=== PATIENT | male | born 1935 | race Caucasian/White ===

== ENCOUNTER → 2016-09-09 | Outpatient (CLI) | payer OTHER ==
[~2016-09-09] VITALS: Ht 185.4 cm; Wt 75.1 kg
[~2016-09-09] MED LIST: ALPHAGAN P10 ML OP; APAP650 PO; CALCITRATE200 MG PO; FLOMAX0.4 MG PO; GABAPENTIN 100100 MG PO; HYDROCODON-ACE1 EAC5 PO; HYDROCODONE-AP1 EAC6 PO; LANTUS SUBQ; LEVEMIR FL100 UNIT/2 SQ; LIPITOR10 MG PO; LOW DOSE ASPIRI81 M1 PO; METHADONE HCL 110 M1 PO; METHADONE HCL5 MG PO; METHOTREXATE 22.5 M1 PO; MULTIVITAMINS PO; NEURONTIN 300300 M1 PO; NEURONTIN 400M400 M2 PO; NEURONTIN600 MG PO; NOVOLOG100 UNIT/1 SQ; OMEGA-31000 MG PO; OXYCODONE-APAP1 EAC6 PO; PLAVIX 75 MG TA75 M1 PO; PREDNISONE 1 MG1 M1 PO; PROZAC 10 MG CA10 M1 PO; PROZAC 10 MG CA10 MG; PROZAC 10 MG CA10 MG PO; SIMVASTATIN20 MG PO; TRAMADOL 50 MG50 MG PO; TRAVATAN Z5 ML OP; TRUSOPT5 ML OP; VITAMIN B-12500 MCG PO; VITAMIN D-32000 UNIT PO; XANAX 0.5 MG0.5 M1 PO
--- NOTE | ~2016-09-09 | HPC ---
[facility] [place] [address] PAIN MANAGEMENT CONSULTATION Name: REMI RAGSDALE Room #: REG GAYATRI Lauren#: [id number] Admission: 09/09/16 Attend Phys: Benson Larry MD Discharge: Date of : 34 Report #: [id number] THIS REPORT FOR: //name// CC: Farhad Larry DATE OF REGISTRATION: 09/09/2016 Followup visit for chronic pain, lumbar radiculopathy, post-laminectomy syndrome, left L5 distribution, bilateral chronic peripheral neuropathy, osteoarthritis. The patient returns to the pain clinic today for followup. He has a number of pain generators as described above. Today is difficult with the changes in weather; he has pain in his joints with left hip bothersome as well as right where he has had previous replacement. He has lumbar spondylytic low back pain, pain across his scar and he has radicular pain radiating down into the left hip and leg. In addition, he suffers from chronic neuropathy, which has been treated with a combination of methadone and gabapentin with some success. Overall, his pain score today with these multiple aches is 4/10 with the use of medication. He has been taking increasing doses of hydrocodone for breakthrough. MEDICATIONS: Include methadone 10 mg daily in divided dose, hydrocodone 5-10 mg taken for breakthrough pain every 6 hours, more recently with changes in whether, gabapentin 600 mg at bedtime, 300 mg t.i.d., Prozac 10 mg daily, he is also on Plavix, aspirin, prednisone, methotrexate, omega 3, Alphagan, Travatan, Trusopt and NovoLog insulin sliding scale. He discontinued his Plavix since 7 days, anticipation of an epidural injection today, which has been helpful, providing up to 75% of pain relief for months at a time. PHYSICAL EXAMINATION: His affect is a little depressed today. His blood pressure is 131/56, his heart rate is 60, moves from sitting to standing position, ambulates with a cane, slow shuffling steps, has pain and tenderness across his low back, straight leg raising discomfort in the left hip. Internal and external rotation is performed without significant discomfort. Bilateral lower extremity numbness from the knees down consistent with neuropathy. He has diffuse pain across his low back and mid back with spondylitic changes noted. IMPRESSION: 1. Chronic intractable pain with lumbar spondylosis and post-laminectomy syndrome and lumbar radiculopathy L5. 2. Peripheral neuropathy. 3. Osteoarthritis, right hip replacement, now complaining of pain in the left hip. [address] [address] PAIN MANAGEMENT CONSULTATION Name: REMI RAGSDALE Room #: REG [facility].#: [id number] Admission: 09/09/16 Attend Phys: Benson Larry MD Discharge: Date of : 34 Report #: [id number] 4. Psoriatic arthritis, prednisone. 5. Management of high risk medication. 6. Anticoagulation therapy. PLAN: 1. I renewed his hydrocodone at 10 mg q.6 hours for breakthrough pain. 2. Methadone 5 mg morning, 2.5 mg afternoon and evening. 3. Epidural steroid injection under fluoroscopic guidance. PROCEDURE: The patient was taken to fluoroscopic suite for treatment, placed prone, skin prepped with ChloraPrep. Skin anesthetized over the L5-S1 interspace below the scar. A 20-gauge Tuohy epidural needle advanced in the left of midline with good loss of resistance. No blood or CSF aspirated. A 1 mL of Omnipaque injected. Good spread of dye observed in the epidural space followed by 3 mL of 0.5% lidocaine mixed with 80 mg triamcinolone. He tolerated the procedure well and was observed for 45 minutes and discharged. Follow up as needed. <ELECTRONICALLY SIGNED> By: Benson Larry MD 10/09/16 1130 1035 1058 Benson Larry MD /nt
[2016-09-09 09:33] VITALS: BP 131/56
== END | disposition home or self-care (01) ==
LOC: PAIN 07-28 10:56
DX: M47.896 Other spondylosis, lumbar region (principal); G89.29 Other chronic pain; M96.1 Postlaminectomy syndrome, not elsewhere classified; G62.9 Polyneuropathy, unspecified; M16.11 Unilateral primary osteoarthritis, right hip; M25.552 Pain in left hip; L40.50 Arthropathic psoriasis, unspecified; Z79.01 Long term (current) use of anticoagulants

== ENCOUNTER → 2016-12-13 | Outpatient (CLI) | payer OTHER ==
[~2016-12-13] VITALS: Ht 185.4 cm; Wt 76.7 kg
--- NOTE | ~2016-12-13 | HPC ---
[facility] [place] [address] PAIN MANAGEMENT CONSULTATION Name: REMI RAGSDALE Room #: REG GAYATRI Lauren#: [id number] Admission: 12/13/16 Attend Phys: Benson Larry MD Discharge: Date of : 34 Report #: [id number] THIS REPORT FOR: //name// CC: Farhad Larry DATE OF SERVICE: 12/13/2016 Followup visit for low back pain with radiculopathy and peripheral neuropathy. The patient is here today for a 15-minute followup. We discussed his medications and his pain. He is becoming progressively more sedentary. I have encouraged him to walk more and have talked to him about getting a Fitbit, so he can monitor and develop a program. His is in agreement with this. Describes pain as constant, every day pain, mid back, radiates bilaterally through the legs into his feet. A component of this is certainly peripheral neuropathy related about diabetes, but he has gotten good results from epidural injections in the past and is here today for an injection. Dr. Rodríguez, his primary care physician manages his all his other medications. He recently had been developing some pitting edema in the lower extremities. This is new. We reviewed some of his medications, gabapentin is often the culprit. He has been on it so long. It would be hard to see if that is causing it. We also talked about dietary changes. I would like him to see Dr. Rodríguez to discuss this as well. He does not have a history of heart failure. MEDICATIONS: Reviewed and reconciled from the electronic medical record. ALLERGIES: NONE. PHYSICAL EXAMINATION: Blood pressure 115/44, heart rate 60. BMI 22.3. Moves from sitting to standing position. He ambulates with antalgic features. He has weakness. It is generalized throughout the lower extremities. Pitting edema is noted. Bilateral straight leg raising pain reproduces radicular like sensations in lower extremity. He has light touch discomfort with mild allodynia throughout the lower extremities and tenderness with this pitting edema. IMPRESSION: 1. Chronic low back pain with radiculopathy, bilateral. This is longstanding and related to severe spinal stenosis. 2. Peripheral neuropathy. 3. Osteoarthritis, status post right hip replacement. 4. Psoriatic arthritis, which he is on chronic management with . 5. Management of high risk medication. [address] [address] PAIN MANAGEMENT CONSULTATION Name: REMI RAGSDALE Room #: REG CLI Tahmina#: [id number] Admission: 12/13/16 Attend Phys: Benson Larry MD Discharge: Date of : 34 Report #: [id number] 6. Chronic use of Plavix. PROCEDURE: Epidural steroid injection under fluoroscopic guidance, L4-L5, renewal of medicines. He was taken to fluoroscopic suite, placed prone. Skin prepped with ChloraPrep. Skin anesthetized at L4-L5. A 20-gauge Tuohy epidural needle advanced in the epidural space with loss of resistance. No blood or CSF aspirated. 1 mL of Omnipaque injected. Good spread of dye observed followed by 3 mL of 0.5% lidocaine mixed with 80 mg of triamcinolone. He tolerated the procedure well and was observed for 45 minutes and discharged. Follow up as needed. By: 1222 27 Benson Larry MD /nt
[2016-12-13 10:17] VITALS: BP 115/44
== END ==
LOC: PAIN 06:50
DX: M54.16 Radiculopathy, lumbar region (principal); M48.06 Spinal stenosis, lumbar region; G62.9 Polyneuropathy, unspecified; M16.11 Unilateral primary osteoarthritis, right hip; Z96.641 Presence of right artificial hip joint; L40.50 Arthropathic psoriasis, unspecified

== ENCOUNTER → 2017-03-10 | Outpatient (CLI) | payer OTHER ==
[~2017-03-10] VITALS: Ht 182.9 cm; Wt 75.8 kg
[2017-03-10 13:45] VITALS: BP 137/55
== END | disposition home or self-care (01) ==
LOC: PAIN 06:52
DX: M54.16 Radiculopathy, lumbar region (principal); M96.1 Postlaminectomy syndrome, not elsewhere classified; M19.90 Unspecified osteoarthritis, unspecified site; G62.9 Polyneuropathy, unspecified; M48.00 Spinal stenosis, site unspecified

== ENCOUNTER → 2017-05-30 | Outpatient (CLI) | payer OTHER ==
[~2017-05-30] VITALS: Ht 182.9 cm; Wt 74.9 kg
[~2017-05-30] MED LIST changes: +METHYLPHENIDATE5 MG PO
--- NOTE | ~2017-05-30 | HPC ---
[facility] [address] [place] [address] PAIN MANAGEMENT CONSULTATION Name: REMI RAGSDALE Room #: REG GAYATRI Lauren#: [id number] Admission: 05/30/17 Attend Phys: Benson Larry MD Discharge: Date of : 34 Report #: [id number] THIS REPORT FOR: //name// CC: Farhad Larry DATE OF SERVICE: 05/30/2017 HISTORY OF PRESENT ILLNESS: The patient returns to pain clinic today for an epidural injection. He has responded nicely to these injections at L5-S1 below the level of his extensive laminectomy. I also provide him with medication under terms of an opioid agreement. This includes methadone 5 mg, which he takes in divided dose, a total of 10 mg per day and hydrocodone 10/325 four tablets a day for breakthrough pain. He does not always take 4. He is on other medications, which were reviewed, so polypharmacy regimen is likely causing some daytime drowsiness. He has gabapentin 600 mg evening and 400 mg 3 times daily during waking hours. He also takes prednisone, methotrexate, aspirin, multivitamins, omega-3, Alphagan, travoprost, ____, insulin, fluoxetine, Plavix which was discontinued in anticipation of an injection 1 week ago. PHYSICAL EXAMINATION: He is pleasant, a little bit sluggish today, but his humorous is good, insight is good and he does not show any significant decline in mental faculties. His blood pressure is 125/47, heart rate 61, respirations 14. BMI is 22.4. He is able to move from sitting to standing position independently, walks without a cane. He has kind of a shuffling gait. He has tenderness across his low back and forward flexion/extension increases that low back pain. Bilateral pain is noted in legs with straight leg raising that extends all the way into the feet with numbness and tingling. This is likely peripheral neuropathy related to his underlying diabetes. IMPRESSION: 1. Low back pain, post-laminectomy syndrome with radiculopathy. 2. Peripheral neuropathy. 3. Psoriatic arthritis. 4. Management of high risk medication. RECOMMENDATIONS: 1. I am going to renew his medications, which he feels a very helpful for his daytime pain, but I am also going to add methylphenidate 5 mg in the morning for his daytime drowsiness and see if that small amount of stimulant will help. 2. Epidural steroid injection under fluoroscopic guidance, L5-S1. PROCEDURE: He was taken to the fluoroscopic suite for the injection, placed prone, skin prepped with ChloraPrep over the L5-S1 interspace. A 20-gauge Tuohy epidural needle was advanced into the epidural space with loss of resistance. [address] [address] PAIN MANAGEMENT CONSULTATION Name: REMI RAGSDALE Room #: REG CLiVv Aguilar#: [id number] Admission: 05/30/17 Attend Phys: Benson Larry MD Discharge: Date of : 34 Report #: [id number] There was no blood or CSF aspirated. A 1 mL of Omnipaque was injected and excellent spread of dye observed into the epidural space followed by 3 mL of 0.5% lidocaine mixed with 80 mg of triamcinolone. He tolerated the procedure well, was observed for 45 minutes and discharged. Followup visit planned as needed. By: 1619 0100 Benson Larry MD /nt
[2017-05-30 13:28] VITALS: BP 125/47
== END ==
LOC: PAIN 07:33
DX: M54.16 Radiculopathy, lumbar region (principal); M54.5 Low back pain; M96.1 Postlaminectomy syndrome, not elsewhere classified; G62.89 Other specified polyneuropathies; L40.59 Other psoriatic arthropathy; Z79.899 Other long term (current) drug therapy; Z79.82 Long term (current) use of aspirin; Z79.4 Long term (current) use of insulin

== ENCOUNTER → 2017-08-18 | Outpatient (CLI) | payer OTHER ==
[~2017-08-18] VITALS: Ht 182.9 cm; Wt 74.8 kg
--- NOTE | ~2017-08-18 | HPC ---
[facility] [place] [address] PAIN MANAGEMENT CONSULTATION Name: REMI RAGSDALE Room #: REG GAYATRI Lauren#: [id number] Admission: 08/18/17 Attend Phys: Benson Larry MD Discharge: Date of : 34 Report #: [id number] THIS REPORT FOR: //name// CC: Farhad Larry DATE OF SERVICE: 08/18/2017 Followup visit for low back pain with radiculopathy. The patient returns to clinic for an epidural injection. He has a new MRI, which shows that there is fairly significant stenosis at L2-L3. I have been injecting lower because of his symptoms in L5-S1 distribution, but because of the severe stenosis at L2-L3, I have recommended that when we perform this injection today, we should go at the higher level. I also managed medications for him under terms of an opioid agreement. We reviewed that opioid agreement, the opioid crisis, his responsibilities as well as mine. He has shown no addictive behaviors, takes his medicines carefully, safeguards and we have no issues. His medication is methadone 5 mg taken t.i.d. and hydrocodone 10/325 taken 4 times daily for breakthrough pain. We have found the methadone to be particularly helpful for his neuropathic symptoms and he has very few side effects other than constipation as expected and we treated that. He does not smoke. He has no other significant osteoarthritis. His BMI is in 22.3 range and his diet is good. All medications were reviewed and reconciled. They are on the medical record. There were no changes. ALLERGIES: None. PHYSICAL EXAMINATION: The patient is a pleasant 82-year-old, alert and oriented without any signs of dementia, forgetfulness or anxiety. His blood pressure is 148/59, heart rate 65, respirations 16. BMI again 22.3. He moves from sitting to standing position independently, does not use a cane and is not a fall risk. He seems to have pain across his low back with forward flexion and extension around his scar and he has radiating pain down the posterolateral aspect of his leg in the L5 distribution. Straight leg raising is positive bilaterally with numbness in the feet and tingling. IMPRESSION: 1. Low back pain, post-laminectomy syndrome with radiculopathy. 2. Peripheral neuropathy. 3. Psoriatic arthritis. 4. Management of high risk medication. [address] [address] PAIN MANAGEMENT CONSULTATION Name: REMI RAGSDALE Cadence Room #: REG CLViv Aguilar#: [id number] Admission: 08/18/17 Attend Phys: Benson Larry MD Discharge: Date of : 34 Report #: [id number] PLAN: 1. Under terms of his opioid agreement, I have renewed his medication. 2. We have agreed on an epidural steroid injection at L2-L3. Risks and benefits were reviewed. He is off all blood thinning medications, discontinuing Plavix on 08/11/2017. PROCEDURE: Epidural steroid injection fluoroscopic guidance. He was taken to fluoroscopic suite, placed prone, skin prepped with ChloraPrep. Skin was anesthetized over the L2-L3 interspace. A 20-gauge Tuohy epidural needle was advanced in the epidural space with loss of resistance technique. There was no blood or CSF aspirated. 1 mL of Omnipaque injected. This showed a good epidurogram as followed by 3 mL of 1% lidocaine mixed with 80 mg of triamcinolone. He tolerated the procedure well and was observed for 45 minutes and discharged. By: [id number] 1840 Benson Larry MD /nt
[2017-08-18 13:54] VITALS: BP 148/59
== END | disposition home or self-care (01) ==
LOC: PAIN 07:17
DX: M54.16 Radiculopathy, lumbar region (principal); M96.1 Postlaminectomy syndrome, not elsewhere classified; G89.29 Other chronic pain; G62.9 Polyneuropathy, unspecified; L40.50 Arthropathic psoriasis, unspecified; Z79.891 Long term (current) use of opiate analgesic; Z79.82 Long term (current) use of aspirin; Z79.899 Other long term (current) drug therapy

== ENCOUNTER → 2017-11-10 | Outpatient (CLI) | payer OTHER ==
[~2017-11-10] VITALS: Ht 182.9 cm; Wt 76.9 kg
[~2017-11-10] MED LIST changes: +CYMBALTA60 MG PO; +NUVIGIL50 MG PO; +PROVIGIL 100 M100 M1 PO
--- NOTE | ~2017-11-10 | HPC ---
[facility] [place] [address] [address] [place] [address] PAIN MANAGEMENT CONSULTATION Name: REMI RAGSDALE Room #: REG GAYATRI Aguilar#: [id number] Admission: 11/10/17 Attend Phys: Benson Larry MD Discharge: Date of : 34 Report #: [id number] THIS REPORT FOR: //name// CC: Farhad Larry DATE OF SERVICE: 11/10/2017 DATE OF REGISTRATION: 11/10/2017 Followup visit for low back pain with radiculopathy. The patient returns today for an epidural injection, we provided these at 3-4-month intervals. We reviewed once again his MRI findings at his request. He does have fairly significant spinal stenosis above the level of his previous surgery and also has symptoms in the L5-S1 distribution. Additional surgery can be contemplated, but as long as his epidural injections along with medications provided to the clinic are allowing him to function at a reasonable level, he has chosen this path. He is 82 years of age and is concerned about undergoing a major back surgery and I would agree. I reviewed his PQRS information provided. He has osteoarthritis of the hip. He has a BMI of 23. His blood pressure 124/54, heart rate 60, respirations 16, O2 sat 96. Pain intensity is 7/10 today before injection. He has not fallen in the last 3 months, but uses a cane and would be considered a fall risk. He needs to be cautious because he is on Plavix. He has an opioid agreement that has been signed to our clinic and has completed a risk assessment tool as well as a functional assessment tool. His risk tool shows that he is at low risk for addiction and his functional assessment tool shows that he is much improved on medication versus performance without. IMPRESSION: 1. Chronic intractable low back pain status post laminectomy with bilateral radiculopathy. 2. Peripheral neuropathy. 3. Psoriatic arthritis. 4. Management of high risk medication. PLAN: Renew methadone at a dose of 10 mg per day. He takes 5 in the morning, 2.5 in the afternoon and evening. This equates to 40 morphine mg equivalents. I also allow him for additional hydrocodone that he can take during the day for breakthrough pain as it tends to work faster and provides good breakthrough relief prior to and after activities. His total daily morphine mg equivalency is 80. PROCEDURE: Lumbar epidural steroid injection [place] [address] PAIN MANAGEMENT CONSULTATION Name: LISATIMMYJAMALREMI L Room #: REG GAYATRI Aguilar#: [id number] Admission: 11/10/17 Attend Phys: Benson Larry MD Discharge: Date of : 34 Report #: [id number] He was taken to fluoroscopic suite, placed prone, skin prepped with ChloraPrep. Skin anesthetized over L3-L4 above his laminectomy. A 20-gauge Tuohy epidural needle advanced in the epidural space with loss of resistance technique. There was no blood or CSF aspirated. 1 mL of Omnipaque was injected. Good spread of dye observed in the epidural space, was followed then by 3 mL of 0.5% lidocaine mixed with 80 mg of triamcinolone. He tolerated the procedure well and was observed for 45 minutes and discharged. Follow up as needed. <ELECTRONICALLY SIGNED> By: Benson Larry MD 12/05/17 1408 1332 2344 Benson Larry MD /nt
[2017-11-10 13:08] VITALS: BP 124/54
== END | disposition home or self-care (01) ==
LOC: PAIN 07:04
DX: M54.16 Radiculopathy, lumbar region (principal); G89.29 Other chronic pain; G62.9 Polyneuropathy, unspecified; L40.50 Arthropathic psoriasis, unspecified; Z98.890 Other specified postprocedural states

== ENCOUNTER → 2017-12-29 | Outpatient (CLI) | payer OTHER ==
[~2017-12-29] MED LIST changes: -CYMBALTA60 MG PO; -NUVIGIL50 MG PO; -PROVIGIL 100 M100 M1 PO
== END ==
LOC: RAD 09:06
DX: R07.81 Pleurodynia (principal)

== ENCOUNTER 2018-02-09 15:32 | Inpatient (IN) | payer OTHER ==
[~2018-02-09] VITALS: Ht 182.9 cm; Wt 72.6 kg
--- NOTE | ~2018-02-09 | EKG ---
[place] [address] [facility] [facility] [place] [address] ELECTROCARDIOGRAM REPORT Name: REMI RAGSDALE Room #: [facility]#: [id number] Admission: Attend Phys: Discharge: Date of : 34 Report #: [id number] THIS REPORT FOR: //name// [facility] ED Test Date: 2018-02-09 Test Time: 15:34:46 Pat Name: REMI RAGSDALE Department: Room: Gender: M Administrator Of Home Health: OBED : 1935 Requested By: Kristin Sutherland Order Number: [id number] MD: Farhad Pena Measurements Intervals [place] Rate: 56 P: 12 VA: 162 QRS: 24 QRSD: 99 T: 26 QT: 440 QTc: 425 Interpretive Statements Sinus bradycardia Otherwise no significant abnormality Compared to ECG 02/24/2015 10:39:58 No significant changes Electronically Signed On 02-09-2018 16:35:09 CDT by Farhad Pena [email or web address] <ELECTRONICALLY SIGNED> By: Farhad Pena MD, [facility] 02/09/18 1635 1534 1534 Farhad Pena MD, FACC /EPI
[~2018-02-09 15:32] MED LIST changes: -PROVIGIL 100 M100 M1 PO
[2018-02-09 15:33] VITALS: BP 139/43
[2018-02-09 16:57] LABS: HEMATOCRIT 36.8 % (42.0-52.0); HEMOGLOBIN 12.3 gm/dL (14.0-18.0); MCH 30.4 pg (26.0-34.0); MCHC 33.4 g/dL (28.0-37.0); MCV 91.2 fL (80.0-100.0); PLATELET COUNT 239 thou/uL (150-400); RBC 4.03 mil/uL (4.50-6.00); RDW 15.2 % (10.5-14.5); WBC 7.7 thou/uL (4.0-11.0)
[2018-02-09 17:03] LABS: ANION GAP 4 mmol/L (7-16); BUN 19 mg/dL (7-18); CALCIUM 9.1 mg/dL (8.5-10.1); CHLORIDE 105 mmol/L (98-107); CO2 30 mmol/L (21-32); CREATININE 0.9 mg/dL (0.7-1.3); GLUCOSE 53 mg/dL (74-106); POTASSIUM 4.1 mmol/L (3.5-5.1); SODIUM 139 mmol/L (136-145)
[2018-02-09 17:12] LABS: TROPONIN-I < 0.04 ng/mL (<0.06)
[2018-02-09 17:32] LABS: ABSOLUTE NEUTROPHILS 5.4 thou/uL (1.4-8.2); ANISOCYTOSIS 1+
[2018-02-09 18:03] VITALS: BP 139/43
[2018-02-09 19:20] VITALS: BP 160/65
[2018-02-09 23:52] VITALS: BP 172/69
[2018-02-10] VITALS (7 sets, daily range): BP systolic 132–160; BP diastolic 60–65
[2018-02-10 13:35] LABS: URINE BILIRUBIN NEGATIVE (Negative); URINE BLOOD NEGATIVE (Negative); URINE CLARITY CLEAR; URINE COLOR YELLOW; URINE GLUCOSE-RANDOM* TRACE (Negative); URINE KETONES NEGATIVE (Negative); URINE LEUKOCYTES NEGATIVE (Negative); URINE NITRITE NEGATIVE (Negative); URINE PROTEIN (DIPSTICK) NEGATIVE (Negative); URINE SPECIFIC GRAVITY <= 1.005 (1.005-1.035); URINE UROBILINOGEN 0.2 E.U./dl (0.2-1.0)
[2018-02-10 13:51] LABS: TSH 0.977 uIU/mL (0.358-3.740)
== END 2018-02-10 16:52 | disposition home or self-care (01) | DRG 71 ==
LOC: ER 15:32 → EROBS 17:31 → 3W 17:31 → ENTRNSPT 02-10 16:45 → 3W 02-10 16:52
PROVIDERS: Emergency Medicine; Psychiatry & Neurology Neurology
DX: G93.40 Encephalopathy, unspecified (principal); G45.9 Transient cerebral ischemic attack, unspecified; H40.9 Unspecified glaucoma; G89.29 Other chronic pain; M54.9 Dorsalgia, unspecified; Z96.641 Presence of right artificial hip joint; E11.649 Type 2 diabetes mellitus with hypoglycemia without coma; E11.42 Type 2 diabetes mellitus with diabetic polyneuropathy; M48.061 Spinal stenosis, lumbar region without neurogenic claudication; M06.9 Rheumatoid arthritis, unspecified; Z98.49 Cataract extraction status, unspecified eye; Z90.49 Acquired absence of other specified parts of digestive tract; Z79.82 Long term (current) use of aspirin; Z79.899 Other long term (current) drug therapy
CPT/HCPCS: 10879

== ENCOUNTER → 2018-02-09 | Outpatient (CLI) | payer OTHER ==
[~2018-02-09] VITALS: Ht 182.9 cm; Wt 75.3 kg
[~2018-02-09] MED LIST changes: +NUVIGIL50 MG PO; +PROVIGIL 100 M100 M1 PO
--- NOTE | ~2018-02-09 | HPC ---
[facility] [place] [address] PAIN MANAGEMENT CONSULTATION Name: REMI RAGSDALE Room #: REG GAYATRI Lauren#: [id number] Admission: 02/09/18 Attend Phys: Benson Larry MD Discharge: Date of : 34 Report #: [id number] THIS REPORT FOR: //name// CC: Farhad Larry DATE OF SERVICE: 02/09/2018 Followup visit for chronic back pain with radiculopathy. The patient presents to the Pain Clinic today with his and was unusually sedated. I see him several times a year. He is generally very animated. 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 Today, he nodded off to sleep mid-sentence. His blood pressure was low. At times, it felt like he would fall out of a chair while I was in the room. He has a history of diabetes and we were in the process of checking his blood sugar. We decided to send him in the Emergency Room for more thorough evaluation. He is on opioid medication, but this has been unchanged for quite some time. He has been on an opioid agreement and is reflected back into his chart at this time. It is clear that we began pain medication of opioid class in 2013 nearly 4 years ago. He was started on methadone for treatment of chronic pain in 12/2014, so he has been on that as well for nearly 3 years. This is not directly related to his medication it appears unless he overtook his medication today accidentally. There was no intent. Medication provided to the clinic includes methadone 10 mg daily, hydrocodone 10/325 one tablet 4 times daily for breakthrough pain, fluoxetine 10 mg daily. PHYSICAL EXAMINATION: The patient's mental status and alertness are as noted above. Vital signs show blood pressure of 98/40, heart rate 60, O2 sat was 96%. Pupils were noted to be pinpoint. Mucous membranes dry. Chest was clear with no audible murmur. Cardiac rhythm regular. Abdomen soft. Tenderness across the low back. IMPRESSION: 1. Chronic intractable low back pain, post-laminectomy syndrome. 2. Altered mental status with decreased level of consciousness, possibly related to medication. 3. History of psoriatic arthritis. 4. Management of high-risk medication. PLAN: 1. I reduced his methadone chronic dose from 10 to 5 mg per day, 1/2 tablet in the morning and evening. This should be held through today. I do want to stop it abruptly, which would potentiate withdrawal. [facility] [address] [place] [address] PAIN MANAGEMENT CONSULTATION Name: REMI RAGSDALE Room #: REG [facility]#: [id number] Admission: 02/09/18 Attend Phys: Benson Larry MD Discharge: Date of : 34 Report #: [id number] 2. Continue breakthrough hydrocodone, also given cautiously and only for pain. It should not be given on a schedule. 3. I have ordered Nuvigil as a new daytime stimulant medication for him 50 mg once daily as a trial, 10 tablets. We will order more if he tolerates it and if it is helpful. 4. I notified Dr. Rodríguez of today's visit by text. <ELECTRONICALLY SIGNED> By: Benson Larry MD 02/27/18 1230 1747 2232 Benson Larry MD /nt
[2018-02-09 14:52] VITALS: BP 116/44
[2018-02-09 15:50] VITALS: BP 98/40
== END ==
LOC: PAIN 07:07
DX: M54.16 Radiculopathy, lumbar region (principal); G89.29 Other chronic pain; R41.82 Altered mental status, unspecified; Z79.899 Other long term (current) drug therapy

== ENCOUNTER → 2018-03-02 | Outpatient (CLI) | payer OTHER ==
[~2018-03-02] MED LIST changes: +PROVIGIL 100 M100 M1 PO
--- NOTE | ~2018-03-02 | HPC ---
[facility] [place] [address] PAIN MANAGEMENT CONSULTATION Name: REMI WHITE Room #: REG GAYATRI Aguilar#: [id number] Admission: 03/02/18 Attend Phys: Benson Larry MD Discharge: Date of : 34 Report #: [id number] THIS REPORT FOR: //name// CC: Farhad Larry DATE OF SERVICE: 03/02/2018 The patient is here today with his . I last saw him a few weeks ago when he was so sedated and not arousable that we sent him to the Emergency Room. Since that date, he has been started on a blood thinner, Plavix and is unable to stop medication for injection, so today is the consultation only. The patient's is concerned because he has recently seen Dr. Muñoz and has been started on 2 new medications added to his list. He is started on Aricept and Cymbalta. Both will be started sequentially over the course of the next 2 weeks. The followup visit with the neurologist who started the medications will not be for 6 months. She is concerned that the dose will be too much that he may have side effects that there may be drug interactions and she has done her own research. She came to discuss my opinions on this. The patient also sees Dr. Farhad Rodríguez on a regular basis, who prescribes medication for the patient as well. Some of the confusion now is related to multiple prescribing physicians. All of his prescribing some centrally acting medications. Dr. Rodríguez is captain of the [facility] primary care physician and has requested a consultation of pain management, Neurology. I have offered my opinion to Ms. White today, but I have requested that she talk with Dr. Rodríguez. I will try and touch base with him as well. Our approach to adding centrally acting medications, no matter what they are in the pain clinic is to start low, go slow and to use the lowest most effective dose. We are always cautious when starting medications and try not to make more than one medication change at a time. When taking multiple centrally acting medications, it is difficult to determine which medications are helpful and which are not. We discussed openly the use of his opioid medication, which he has been on now for 10 years. His medication has always been well tolerated up until the last 4-6 months. I recognized that some things may be changing in the patient and he may be showing some signs of dementia with memory loss, but it is hard to blame these on his pain medications. He is 82 years of age and his number one complaint is pain. Medications play a big role in controlling that. His does not want to stop his pain medication. [address] [address] PAIN MANAGEMENT CONSULTATION Name: REMI WHITE Room #: REG GAYATRI Aguilar#: [id number] Admission: 03/02/18 Attend Phys: Benson Larry MD Discharge: Date of : 34 Report #: [id number] PHYSICAL EXAMINATION: Today, he is much more alert and awake. His pupils are equal, round, reactive to light. EOMs are intact. His blood pressure is 118/85, heart rate is 80. His chest is clear. His cardiac rhythm is regular. His mental status has much improved. He is wide awake throughout his visit today. He did not fall asleep as he has previously. He has pain across his low back. He has positive straight leg raising that radiates into his right leg. IMPRESSION: 1. Chronic low back pain with radiculopathy. 2. Management of high risk medication. 3. Narcolepsy or drowsiness, which has worsened over the course of the last month or 2. PLAN: 1. I renewed with stimulants, however, this time, I have ordered Provigil instead of Nuvigil. Nuvigil is quite expensive. 2. Continue with methadone and breakthrough hydrocodone. 3. I have requested that they meet with Dr. Rodríguez to discuss our recommendations as consultants and will yield to his decisions going forward. By: [id number] Benson Larry MD /amairani
[2018-03-02 14:07] VITALS: BP 115/52
== END ==
LOC: PAIN 07:17
DX: M54.16 Radiculopathy, lumbar region (principal); M54.5 Low back pain; G47.419 Narcolepsy without cataplexy; Z79.899 Other long term (current) drug therapy

== ENCOUNTER → 2018-04-24 | Outpatient (CLI) | payer OTHER ==
[~2018-04-24] VITALS: Ht 182.9 cm; Wt 75.3 kg
[~2018-04-24] MED LIST changes: +CYMBALTA60 MG PO
--- NOTE | ~2018-04-24 | HPC ---
[facility] [place] [address] PAIN MANAGEMENT CONSULTATION Name: REMI RAGSDALE Room #: REG GAYATRI Aguilar#: [id number] Admission: 04/24/18 Attend Phys: Benson Larry MD Discharge: Date of : 34 Report #: [id number] THIS REPORT FOR: //name// CC: Farhad Larry DATE OF SERVICE: 04/24/2018 Followup visit for chronic pain. The patient is here today with his and our visit was pretty straightforward. He has had some challenging visits over the course of the last several months one of which was concerning enough that I sent him to the Emergency Room when his level of consciousness was altered. Today, he is doing well. He is bright and conversational. Memory seems good. He reports that his pain has been well controlled. His corrects him and says that the pain has been tolerable with current medication regimen. I noted in his last visit that he saw Dr. Muñoz, the neurologist, who had started him on both Aricept and Cymbalta. They will continue the Cymbalta, but did not feel the Aricept is something that he can tolerate. He had significant side effects with it. Cymbalta may be a helpful medication for him and I do think the antidepressant effect seems to be helpful. He is less drowsy today perhaps Cymbalta may be activating for him. He remains on very low dose methadone 2.5 mg b.i.d. and Edgard 10/325 four times a day. His echos his request to continue on the pain medication. When he does not take his normal dosing, the pain increases quite severely in his low back and legs. He has chronic radiculopathy secondary to spinal stenosis and has had previous back surgery. He also suffers from peripheral neuropathy. Osteoarthritis remains a problem particularly in his hips. He has had a hip replacement. He has psoriatic arthritis in many joints and also are uncomfortable when he does not take his pain medicine. We have discussed the CDC guidelines. We reviewed his opioid agreement. He now has no significant side effects that we need to deal with today. His activities are improved with pain medication including simple activities of daily living including dressing, walking, sitting and standing. At last visit, I discussed the use of a stimulant Provigil or Nuvigil. He has not continued on these medications. PQRS shows the history of osteoarthritis and chronic opioid agreement. He is at low risk for addiction per the opioid risk tool. He is on Plavix [place] [address] PAIN MANAGEMENT CONSULTATION Name: REMI RAGSDALE Room #: REG GAYATRI Aguilar#: [id number] Admission: 04/24/18 Attend Phys: Benson Larry MD Discharge: Date of : 34 Report #: [id number] candidate for injection at this time. He has a history of previous back surgery. He is not a fall risk and has not fallen in the last 3 months. Vital signs show a blood pressure 138/57, heart rate 70, respirations 14 and O2 sat 94. Pain intensity is 5/10. His BMI is 22.5. IMPRESSION: 1. Chronic intractable low back pain, post-laminectomy syndrome. 2. Psoriatic arthritis. 3. Osteoarthritis. 4. Management of high risk medication. PLAN: I renewed his medication under terms of our written agreement and he will safeguard his medications carefully as we have discussed once again today in this visit. By: [id number] Benson Larry MD /nt
[2018-04-24 14:05] VITALS: BP 138/57
== END ==
LOC: PAIN 07:02
DX: M16.0 Bilateral primary osteoarthritis of hip (principal); M54.5 Low back pain; G89.4 Chronic pain syndrome; L40.50 Arthropathic psoriasis, unspecified; Z79.899 Other long term (current) drug therapy

== ENCOUNTER 2018-07-26 20:22 | Emergency (ER) | payer OTHER ==
[~2018-07-26] VITALS: Ht 182.9 cm; Wt 77.1 kg
--- NOTE | ~2018-07-26 | EKG ---
[address] [address] ELECTROCARDIOGRAM REPORT Name: REMI RAGSDALE Room #: [facility]#: [id number] Admission: 07/26/18 Attend Phys: Discharge: 07/26/18 Date of : 34 Report #: [id number] THIS REPORT FOR: //name// [facility] ED Test Date: 2018-07-26 Test Time: 21:19:54 Pat Name: REMI RAGSDALE Department: Room: Gender: M Tutor Coordinator: Bandar BALBUENA : 1935 Requested By: Pravin Rust Order Number: [id number] MD: Matt Cleveland Measurements Intervals [place] Rate: 66 P: 22 MD: 164 QRS: 26 QRSD: 102 T: 39 QT: 397 QTc: 416 Interpretive Statements Sinus rhythm Baseline wander in lead(s) V5 Compared to ECG 02/09/2018 15:34:46 Sinus bradycardia no longer present Electronically Signed On 07-27-2018 14:20:03 SURVEILLANCE MONITOR by Matt Cleveland [email or web address] <ELECTRONICALLY SIGNED> By: Matt Cleveland MD 07/27/18 1420 18 18 Matt Cleveland MD /REZA
[2018-07-26 21:19] LABS: ABSOLUTE NEUTROPHILS 4.2 thou/uL (1.4-8.2); BASOPHILS 0.8 % (0.0-2.0); EOSINOPHILS 5.2 % (0.0-3.0); HEMATOCRIT 37.7 % (42.0-52.0); HEMOGLOBIN 12.5 gm/dL (14.0-18.0); LYMPHOCYTES 22.4 % (24.0-44.0); MCHC 33.2 g/dL (28.0-37.0); MCV 93.3 fL (80.0-100.0); MONOCYTES 11.5 % (1.0-8.0); PLATELET COUNT 243 thou/uL (150-400); POLYS 60.1 % (36.0-66.0); RBC 4.04 mil/uL (4.50-6.00); RDW 14.8 % (10.5-14.5)
[2018-07-26 21:26] LABS: ANION GAP 5 mmol/L (7-16); BUN 15 mg/dL (7-18); CALCIUM 9.4 mg/dL (8.5-10.1); CHLORIDE 104 mmol/L (98-107); CO2 30 mmol/L (21-32); CREATININE 0.7 mg/dL (0.7-1.3); GLUCOSE 161 mg/dL (74-106); POTASSIUM 5.3 mmol/L (3.5-5.1); SODIUM 139 mmol/L (136-145)
[2018-07-26] MEDS ORDERED: ALPHAGAN P15 ML OPHTHALMIC (21:27)
[2018-07-26] MEDS ORDERED: GALANTAMINE HBR16 MG PO (21:31)
[2018-07-26 21:34] LABS: ALBUMIN 3.3 g/dL (3.4-5.0); SGOT 40 U/L (15-37); SGPT 30 U/L (30-65); TOTAL BILIRUBIN 0.5 mg/dL (<0.1-1.0); TOTAL PROTEIN 6.4 g/dL (6.4-8.2); TROPONIN-I <0.06 ng/mL (<0.06)
[2018-07-26 21:39] VITALS: BP 149/58
== END 2018-07-26 21:41 | disposition home or self-care (01) ==
LOC: ER 20:22
PROVIDERS: Emergency Medicine
DX: R20.2 Paresthesia of skin (principal); E11.9 Type 2 diabetes mellitus without complications; Z90.49 Acquired absence of other specified parts of digestive tract; Z96.641 Presence of right artificial hip joint; Z79.4 Long term (current) use of insulin

== ENCOUNTER → 2018-08-07 | Outpatient (CLI) | payer OTHER ==
[~2018-08-07] VITALS: Ht 182.9 cm; Wt 75.9 kg
[~2018-08-07] MED LIST changes: +ALPHAGAN P15 ML OPHTHALMIC; +GALANTAMINE HBR16 MG PO
--- NOTE | ~2018-08-07 | HPC ---
[facility] [place] [address] PAIN MANAGEMENT CONSULTATION Name: REMI RAGSDALE Cadence Room #: REG Viv Aguilar#: [id number] Admission: 08/07/18 Attend Phys: Renuka Fried Discharge: Date of : 34 Report #: [id number] THIS REPORT FOR: //name// CC: Renuka Fried Farhad Rodríguez DATE OF SERVICE: 08/07/2018 CHIEF COMPLAINT: Followup for his chronic pain. HISTORY OF PRESENT ILLNESS: The patient is here today with his for a refill of his current pain medication. He tells me that over the last few months, he has been falling. He has fallen 2-3 times since our last visit in March. They thought it was related to his hip. He tells me that when he stands up, his leg feels like it kind of gives away, so he did go and see the bone and joint, Dr. Yun and have it evaluated. He tells me he went to physical therapy about 5 times, was not noticing any increase in his strength in his leg or decrease in his hip pain, but was noticing an increase in his lower back pain. The patient tells me he uses a walker about a third of the time in his house. The patient also today complains of some cervical tingling. He tells me he has tingling in his neck and into his left shoulder down into his bicep area, but not past there. He said it comes and goes, very intermittent. He did go to the Emergency Room last month to have this checked out because his thought it was may be cardiac in nature, but they ruled out any cardiac problems. The patient tells me today that his pain score is 3/4, worse with walking steady, and worse in the morning. He tells me that sitting actually also does help it. He uses different chair pads that help and his medications. He tells me he has no problems with daytime sleepiness or constipation. ALLERGIES: No known drug allergies. CURRENT MEDICATIONS: Methadone 5 mg, he takes half a tablet twice a day; hydrocodone 10/325 one tablet 4 times a day and then see the medication list that was reviewed and reconciled. PQRS: 1. The patient has a history of osteoarthritis in his hips. Denies rheumatoid arthritis. 2. Height is 6 feet, weight is 167, BMI is 22.7. 3. Vital signs: Blood pressure 136/66, pulse is 71, respirations 16, oxygen sat is 93%. 4. Pain score 3-4. 5. Fall risk. The patient denies dizziness, uses a walker occasionally and has fallen several times in the last 3 months, but has not been injured. 6. The patient is on blood thinner, Plavix. Does not have a history of [facility] [address] [place] [address] PAIN MANAGEMENT CONSULTATION Name: LISATIMMYJAMALREMI L Room #: REG GAYATRI Aguilar#: [id number] Admission: 08/07/18 Attend Phys: Renuka Fried Discharge: Date of : 34 Report #: [id number] hypertension. 7. Opioid signed therapy is greater than 6 weeks. Therefore, an opioid signed contract is on the chart. 8. Risk assessment tool is low and his functional assessment is 23/70. 9. Recreational drug use. The patient denies. He does not smoke and he does not drink alcohol. We did check the prescription monitoring system. The patient is filling appropriate for his narcotics from Dr. Benson Larry. His tells us that he does safeguard his medications. No aberrant behaviors noted. PHYSICAL EXAMINATION: GENERAL: This is a well-developed, well-nourished white male that appears his stated age. He is alert and oriented. He has some memory issues. does help him recall certain things. His affect is appropriate. HEENT: Normocephalic, atraumatic. Extraocular eye muscles are intact. Mucous membranes are moist. Hearing is adequate. NECK: No JVD or adenopathy. Does complain of some "creepy-crawly" in his left shoulder into his left bicep. Range of motion is good in his neck. MUSCULOSKELETAL: Strength in lower extremities judged to be 4/5 bilaterally. The patient tells me he uses a walker, but there is not one present today. Does walk with an antalgic gait. The patient rises from sitting to standing from a chair using the armrest. IMPRESSION: 1. Chronic low back pain with radiculopathy. 2. Management of high risk medications. 3. Psoriatic arthritis. 4. Post-laminectomy syndrome. We reviewed the fact that opiate medications are being used to provide analgesia adequate to support activities of daily living, not attempting to achieve a specific pain score on the 0-10 Visual Analog Scale. The current opiate medications are providing sufficient analgesia to allow the patient to participate in activities of daily living. The patient is not exhibiting any aberrant behavior suggestive of drug diversion. The patient is not having any adverse reactions to medications. The patient is not suffering from daytime somnolence or mental acuity changes. The patient is managing opiate-induced constipation with appropriate seio-kqk-thzbmsj agents and dietary considerations. The patient was counseled on concern for caution with operating a motor vehicle while using opiate medications. A physical exam was performed and the patient's functional status was evaluated. All patients with back pain were advised against the bed rest greater than 4 days and were advised to return to normal activities. Pain score assessment was noted and the treatment plan was reviewed with the patient. All current medications, both prescribed and OTC were reviewed and reconciled on the [address] [address] PAIN MANAGEMENT CONSULTATION Name: REMI RAGSDALE Room #: REG GAYATRI Aguilar#: [id number] Admission: 08/07/18 Attend Phys: Renuka Fried Discharge: Date of : 34 Report #: [id number] electronic medical record. Tobacco screening was accomplished and smoking cessation was advised when indicated. BMI was noted and diet/exercise modification was recommended for all patients following outside normal parameters. I reviewed with the patient today their responsibilities to safeguard prescription medications, reviewed their responsibility to utilize medications only as prescribed by the physician. They are to seek and receive pain medications only from 1 physician group ( [facility]). They are to use 1 pharmacy and keep the clinic informed if they change pharmacies. Their responsibilities include making followup visits in a timely fashion and to avoid abrupt discontinuation of medication usage. Their responsibilities further include bringing their medications (bottles from the pharmacy with residual pills) to the visit for possible confirmation of pill counts and the patient understands it is their responsibility to submit to random drug screens to ensure both that the medications prescribed are present, and that no other controlled substances are present. All prescriptions provided today were generated electronically. PLAN: 1. We have reviewed treatment options with this patient today. The patient tells me the current pain medications he feels are very helpful in controlling his pain. Methadone 5 mg 1/2 tablet twice a day, #30 to be released today 4 and 8-week were given and hydrocodone 10/325 q.i.d. to be released today 4 and 8-week given. 2. Encourage the patient to continue with his PT exercises. If patient does not want to do that, try to use his walker at all times. The patient tells me he does not want to use it in the dining room at the facility that they live in, but will agree to try to use it all the time when he is in the apartment. 3. Since the patient is unwilling to use his walker when he is outside his room, I instructed the patient to at least stand slowly, steady himself and then walk straight, not at an angle and this hopefully will may be increase his balance and therefore not causing him to fall. The patient is agreeable with this plan of care and we will continue PT if he feels that this is not helpful. 4. We did discuss the patient's complaint of tingling in his left shoulder and left side of his neck. The patient has had no recent studies of this area, but think it may be due to his ongoing arthritis, spinal stenosis that is present in the rest of his spine. The patient at this time does not wish to undergo any new x-rays or injections and we will continue just to deal with it and take his current pain medicines and gabapentin for this issue. 5. The patient will be seen in 3-month's time period for his medication refills unless the patient continues to have falls. Then, I instructed the family to make an appointment at a sooner date, so we can evaluate the patient further. [address] [address] PAIN MANAGEMENT CONSULTATION Name: REMI RAGSDALE Room #: REG GAYATRI Aguilar#: [id number] Admission: 08/07/18 Attend Phys: Renuka Fried Discharge: Date of : 34 Report #: [id number] They are agreeable with this plan of care. 6. The patient is seen in collaboration today with Dr. Benson Larry. <ELECTRONICALLY SIGNED> By: Renuka Fried 08/08/18 0757 1408 2111 Renuka Fried /nt
[2018-08-07 10:43] VITALS: BP 136/66
== END ==
LOC: PAIN 00:34
DX: M54.16 Radiculopathy, lumbar region (principal); M96.1 Postlaminectomy syndrome, not elsewhere classified; G89.29 Other chronic pain; L40.50 Arthropathic psoriasis, unspecified; Z79.899 Other long term (current) drug therapy

== ENCOUNTER → 2018-11-16 | Outpatient (CLI) | payer OTHER ==
[~2018-11-16] VITALS: Ht 182.9 cm; Wt 75.6 kg
[2018-11-16 10:33] VITALS: BP 123/59
--- NOTE | 2018-11-16 11:04 | NUR ---
Pain Clinic Assessment: 1. History of Osteoarthritis: HIP History of Rheumatoid Arthritis: Not Applicable 2. Height: 6 ft. 0 in. 182.9 cm. Weight: 166.6 lb. oz. 75.569 kg. Patient's BMI: 22.6 3. Vital Signs: BP: 123/59 Pulse: 81 Resp: 14 Temp: 02 Sat: 97 ECG Mon: 4. Pain Intensity: 3-4 5. Fall Risk: Dizziness: Y Needs help standing or walking: N Fallen in the last 3 months: N Fall risk comments: 6. Patient on Blood Thinner: Clopidogrel Bisulf(Plavix 7. History of Hypertension: N 8. Opioid Therapy greater than 6 weeks: Y Opiate Contract Signed: 11/10/17 9. Risk Assessment Tool Provided: LOW RISK 10. Functional Assessment Tool: 11. Recreational Drug Use: Never Drug Type: Tobacco Use: Never Smoker Tobacco Type: Amount or Packs/day: How Many Years: Alcohol Use: No Frequency: Quant:
--- NOTE | 2018-11-22 15:29 | HPC ---
[facility] [address] [place] [address] PAIN MANAGEMENT CONSULTATION Name: REMI RAGSDALE Room #: REG GAYATRI Lauren#: [id number] Admission: 11/16/18 ������������������ Attend Phys: Benson Larry MD Discharge: ������������������ Date of : 34 Report #: [id number] THIS REPORT FOR: //name// CC: Farhad Larry DATE OF SERVICE: 11/16/2018 HISTORY OF PRESENT ILLNESS: Followup visit for chronic low back pain with radiculopathy and psoriatic arthritis. The patient also suffers from post-laminectomy syndrome. We provide medication management for him. The patient is in pain clinic today and is actually doing pretty well. He reports that his pain has been under reasonable control with a pain score of 3-4/10. He continues to remain as active as possible. I have him on methadone 5 mg one-half tablet twice daily and hydrocodone 10/325 four tablets, which he takes relatively unscheduled. With this combination of medicine, he is seeing dramatic improvements in his ability to function and lowering of his overall pain score. He denies any significant side effects. At one point, we were concerned about his cognitive abilities, but these seem to have stabilized and his and he both feel that he is doing pretty well right now. There was some discussion today about a spinal cord stimulator. A friend of theirs has had one placed. I talked to them about the process, which is quite laborious. He would need to be preauthorized and approved by Medicare. He would have to come in for a trial of stimulation. This would have to then be taken out and then followed by a surgical implant, followed by healing, followed by programming and our experience has been mixed. We have a number of patients have done pretty well with this device that we also have had many failures. He needs to be prepared for both if he wants to embark upon that process. For right now, my advice is if he is doing well with medication and there are no significant side effects, he is improved in his day-to-day activities and he carefully safeguards his medication that is quite appropriate to continue them. He is under an opioid agreement, which has reviewed and reconciled. He is a very low risk for addiction. He does not smoke nor does he use alcohol. He is on Plavix. This would also complicate the issue of placement. He is not a fall risk and nor has he fallen in the last 3 months. He has kept his weight down with a BMI of 22.6. He does have psoriatic arthritis, which also contributes to his pain issues. PHYSICAL EXAMINATION: GENERAL: Pleasant, alert and oriented, upbeat today. [facility] [address] [place] [address] PAIN MANAGEMENT CONSULTATION Name: REMI RAGSDALE Room #: REG GAYATRI Aguilar#: [id number] Admission: 11/16/18 ������������������ Attend Phys: Benson Larry MD Discharge: ������������������ Date of : 34 Report #: [id number] VITAL SIGNS: Blood pressure 123/59, heart rate 81, respirations 14. MUSCULOSKELETAL: Moves from a sitting to standing position, walks with a stable gait. He has mild tenderness across his low back and a scar from previous laminectomy. Range of motion of the lumbar spine is fairly limited. Straight leg raising is negative today. IMPRESSION: 1. Chronic intractable low back pain, post-laminectomy syndrome. Radiculopathy is fairly well controlled today. 2. Psoriatic arthritis. 3. Peripheral neuropathy. 4. Management of high risk medications under written opioid agreement. PLAN: For him to continue on his methadone. He will also use hydrocodone as prescribed. He understands the importance of safeguarding his medications and the opioid crisis in the [place]. We will see him at 3-month intervals . ��������������������������������������������� <ELECTRONICALLY SIGNED> ���������������������������������������� By: Benson Larry MD ��������������������������������������������� 11/22/18 1529 1047 0115 Benson Larry MD /nt
== END ==
LOC: PAIN 06:46
DX: G89.4 Chronic pain syndrome (principal); M96.1 Postlaminectomy syndrome, not elsewhere classified; G62.9 Polyneuropathy, unspecified; L40.50 Arthropathic psoriasis, unspecified; Z79.899 Other long term (current) drug therapy

== ENCOUNTER → 2018-12-25 | Outpatient (CLI) | payer OTHER ==
[~2018-12-25] VITALS: Ht 182.9 cm; Wt 76.7 kg
[2018-12-25 13:33] VITALS: BP 155/64
--- NOTE | 2018-12-25 13:46 | NUR ---
Pain Clinic Assessment: 1. History of Osteoarthritis: HIP History of Rheumatoid Arthritis: Not Applicable 2. Height: 6 ft. 0 in. 182.9 cm. Weight: 169.0 lb. oz. 76.658 kg. Patient's BMI: 22.9 3. Vital Signs: BP: 155/64 Pulse: 80 Resp: 16 Temp: 02 Sat: 96 ECG Mon: 4. Pain Intensity: 5 5. Fall Risk: Dizziness: N Needs help standing or walking: N Fallen in the last 3 months: N Fall risk comments: 6. Patient on Blood Thinner: Clopidogrel Bisulf(Plavix 7. History of Hypertension: N 8. Opioid Therapy greater than 6 weeks: Y Opiate Contract Signed: 11/10/17 9. Risk Assessment Tool Provided: LOW RISK 10. Functional Assessment Tool: 11. Recreational Drug Use: Never Drug Type: Tobacco Use: Never Smoker Tobacco Type: Amount or Packs/day: How Many Years: Alcohol Use: No Frequency: Quant:
--- NOTE | 2018-12-26 14:37 | HPC ---
[facility] [address] [place] [address] PAIN MANAGEMENT CONSULTATION Name: REMI RAGSDALE Cadence Room #: REG GAYATRI Aguilar#: [id number] Admission: 12/25/18 ������������������ Attend Phys: Renuka Fried Discharge: ������������������ Date of : 34 Report #: [id number] THIS REPORT FOR: //name// CC: Renuka Fried Farhad Rodríguez DATE OF SERVICE: 12/25/2018 Pain Management Note CHIEF COMPLAINT: Chronic low back pain with radiculopathy and psoriatic arthritis. HISTORY OF PRESENT ILLNESS: This is a very pleasant 83-year-old gentleman who returns to the pain clinic today with his . They are returning for prescription with them today, telling me that the patient's pain is not controlled as it used to be. He is rating his pain a 5/10 currently, but he tells evenly throughout the day, he has increased pain in his hands and his lower back and feet. He tells me he is not able to get injections like he used to because of cardiac problems and he is on Plavix and his medications are not as helpful. He is currently taking methadone 2.5 mg twice a day, as well as hydrocodone up to 4 times a day. The patient's did tell me that in the past, he was on a higher dose of methadone. Per our records, it does indicate that. Unsure of why we had decreased it, but she feels that too he is not doing as well as he used to do. He does have significant problems with his hands. She thinks that may be part of his psoriatic arthritis, but is not as active as he used to be, related to his pain. She was wondering if we could increase his medicine or change it to a different medication. She is also wondering about CBD oil today. ALLERGIES: No known drug allergies. CURRENT LIST OF MEDICATIONS: Methadone 2.5 mg b.i.d., hydrocodone 10/325 four times a day, tamsulosin 0.4 mg daily, Cymbalta 60 mg daily, Lipitor 10 mg daily, insulin as needed, Neurontin 600 mg at bedtime and 300 mg 3 times a day, Plavix 75 mg daily, Prozac 10 mg daily, numerous eye medications, prednisone 2 mg daily and 5 mg on Tuesday and methotrexate weekly. PQRS: 1. The patient has psoriatic arthritis and osteoarthritis and being treated for both. His height is 6 feet 0, weight is 169, BMI is 22. 2. Vital signs: 155/64, pulse is 80, respirations 16, oxygen sat is 96. Pain score is 5/10. 3. Fall risk. Denies dizziness. Does not need help walking or standing. Has not fallen in the last 3 months. The patient is on blood thinners and does take [facility] [address] [place] [address] PAIN MANAGEMENT CONSULTATION Name: REMI RAGSDALE Room #: REG GAYATRI Aguilar#: [id number] Admission: 12/25/18 ������������������ Attend Phys: Renuka Fried Discharge: ������������������ Date of : 34 Report #: [id number] medicine for hypertension. Opioid therapy is greater than 6 weeks, therefore an opioid signed contract is on the chart. His risk assessment tool is low. His functional assessment is 23/70. 4. Recreational drug use. He is not a smoker and does not drink alcohol. We did check the prescription monitoring system. The patient is filling appropriately and has brought back prescriptions to exchange today. There is an opioid signed contract on the chart. PHYSICAL EXAMINATION: GENERAL: He is alert and oriented 83-year-old gentleman. He is well-developed, well-nourished, appears his stated age. HEENT: Normocephalic, atraumatic. Extraocular eye muscles are intact. Mucous membranes are moist. NECK: Without JVD or adenopathy. MUSCULOSKELETAL: He moves from sitting to standing position and walks with a stable gait. He has tenderness in his hands bilaterally today and across his lower back. His lower extremity strength judged to be 5/5 in all major muscle groups. IMPRESSION: 1. Chronic intractable low back pain, post-laminectomy syndrome. 2. Psoriatic arthritis. 3. Peripheral neuropathy. 4. Management of high risk medication under terms of written opioid agreement. We reviewed the fact that opiate medications are being used to provide analgesia adequate to support activities of daily living, not attempting to achieve a specific pain score on the 0-10 Visual Analog Scale. The current opiate medications are providing sufficient analgesia to allow the patient to participate in activities of daily living. The patient is not exhibiting any aberrant behavior suggestive of drug diversion. The patient is not having any adverse reactions to medications. The patient is not suffering from daytime somnolence or mental acuity changes. The patient is managing opiate-induced constipation with appropriate [id number] agents and dietary considerations. The patient was counseled on concern for caution with operating a motor vehicle while using opiate medications. A physical exam was performed and the patient's functional status was evaluated. All patients with back pain were advised against the bed rest greater than 4 days and were advised to return to normal activities. Pain score assessment was noted and the treatment plan was reviewed with the patient. All current medications, both prescribed and OTC were reviewed and reconciled on the electronic medical record. Tobacco screening was accomplished and smoking cessation was advised when indicated. BMI was noted and diet/exercise modification was recommended for all patients following outside normal parameters. [facility] [address] [place] [address] PAIN MANAGEMENT CONSULTATION Name: REMI RAGSDALE Cadence Room #: REG Viv Aguilar#: [id number] Admission: 12/25/18 ������������������ Attend Phys: Renuka EVONNE Fried Discharge: ������������������ Date of : 34 Report #: [id number] I reviewed with the patient today their responsibilities to safeguard prescription medications, reviewed their responsibility to utilize medications only as prescribed by the physician. They are to seek and receive pain medications only from 1 physician group ( [facility]). They are to use 1 pharmacy and keep the clinic informed if they change pharmacies. Their responsibilities include making followup visits in a timely fashion and to avoid abrupt discontinuation of medication usage. Their responsibilities further include bringing their medications (bottles from the pharmacy with residual pills) to the visit for possible confirmation of pill counts and the patient understands it is their responsibility to submit to random drug screens to ensure both that the medications prescribed are present, and that no other controlled substances are present. All prescriptions provided today were generated electronically. PLAN: 1. We discussed treatment options with the patient today. I reviewed the chart with them. The patient was previously on methadone at higher levels as high as 5 mg 3 times a day in 2016 and then 5 mg, 2.5 and 2.5 in October 2017. We had decreased this medicine, we believe, because he was doing fairly well and was getting injections periodically that were helpful in reducing his pain. Unfortunately, he has not been able to get epidural injections now for a while since his blood thinner and his cardiac issues. The patient complains of more numbness and tingling in his feet and pain across his lower back, wondering about an increase. Dr. Larry was present for part of the discussion today and we decided that the patient can go back to 5 mg methadone twice a day. If this is not helpful, we may consider increasing it slightly more that we instructed the family to take half a tablet in the morning, half a tablet midday and 1 tablet at night, then slowly increasing up to 1 tablet in the morning and 1 at night and continue his hydrocodone as needed for breakthrough pain medicine. Scripts were given for his methadone only today since he had hydrocodone in his possession. The verbalizes understanding of this. 2. I did discuss CBD oil with the patient and the family today. I explained that CBD oil strength varies due to it is not being regulated medication, but they are welcome to try this and I would encourage them buying it from the same location. This comes in oil or cream form. He may find that the cream is beneficial for his hands. The tells me she will try and get some cream today for him. 3.The patient will return in 2 months' time. At that time, we will see how the patient is doing and if we need to make further adjustments with his methadone. According to the CDC guidelines, the patient, with the increase of methadone, will be on a total of 70 morphine mEq a day, which is under the CDC guidelines of 90 or below. [address] [address] PAIN MANAGEMENT CONSULTATION Name: REMI RAGSDALE Room #: REG GAYATRI Aguilar#: [id number] Admission: 12/25/18 ������������������ Attend Phys: Renuka Fried Discharge: ������������������ Date of : 34 Report #: [id number] 4. The patient seen with Dr. Larry who also collaborated care. ��������������������������������������������� <ELECTRONICALLY SIGNED> ���������������������������������������� By: Renuka Fried ��������������������������������������������� 12/26/18 1437 [id number] Renuka Fried /amairani
== END ==
LOC: PAIN 06:52
DX: G89.29 Other chronic pain (principal); M54.16 Radiculopathy, lumbar region; L40.50 Arthropathic psoriasis, unspecified; I10 Essential (primary) hypertension; M96.1 Postlaminectomy syndrome, not elsewhere classified; G62.9 Polyneuropathy, unspecified; Z79.891 Long term (current) use of opiate analgesic; Z79.899 Other long term (current) drug therapy; Z68.22 Body mass index [BMI] 22.0-22.9, adult

== ENCOUNTER 2019-01-02 19:48 | Inpatient (IN) | payer OTHER ==
[~2019-01-02] VITALS: Ht 182.9 cm; Wt 75.7 kg
[2019-01-02 19:48] VITALS: BP 140/56
--- NOTE | 2019-01-02 20:03 | NUR ---
PT IN W/C WAITING IN LOBBY FOR ROOM ASSIGNMENT. WILL CONTINUE TO MONITOR AND INTERVENE PRN.
[2019-01-02 21:31] LABS: HEMOGLOBIN 12.2 gm/dL (14.0-18.0); MCH 30.1 pg (26.0-34.0); MCHC 32.9 g/dL (28.0-37.0); MCV 91.5 fL (80.0-100.0); PLATELET COUNT 276 thou/uL (150-400); RBC 4.05 mil/uL (4.50-6.00); WBC 12.3 thou/uL (4.0-11.0)
[2019-01-02 21:44] LABS: ANION GAP 7 mmol/L (7-16); BUN 19 mg/dL (7-18); CALCIUM 9.2 mg/dL (8.5-10.1); CHLORIDE 102 mmol/L (98-107); CO2 29 mmol/L (21-32); GLUCOSE 104 mg/dL (74-106); POTASSIUM 4.1 mmol/L (3.5-5.1); SODIUM 138 mmol/L (136-145)
[2019-01-02 21:52] LABS: TROPONIN-I <0.06 ng/mL (<0.06)
[2019-01-02 22:08] LABS: ABSOLUTE NEUTROPHILS 9.5 thou/uL (1.4-8.2)
[2019-01-02 22:09] LABS: PLATELET ESTIMATE NORMAL
[2019-01-02 23:42] LABS: URINE BILIRUBIN NEGATIVE (Negative); URINE BLOOD NEGATIVE (Negative); URINE CLARITY CLEAR; URINE COLOR YELLOW; URINE GLUCOSE-RANDOM* NEGATIVE (Negative); URINE KETONES NEGATIVE (Negative); URINE LEUKOCYTES-REFLEX NEGATIVE (Negative); URINE NITRITE-REFLEX NEGATIVE (Negative); URINE PROTEIN (DIPSTICK) NEGATIVE (Negative)
[2019-01-03 01:57] VITALS: BP 125/32
[2019-01-03 02:20] VITALS: BP 157/72
--- NOTE | 2019-01-03 03:16 | NUR ---
PT ADMITED FROM ER AROUND 0230. VSS. ASSESSMENT CHARTED. PT A&OX4, FORGETFUL TAKES TIME TO RESPOND SOMETIMES. HERE FOR CP/BRONCHITIS, PT STATES HE DOES NOT HAVE CP THAT HE CAME FOR INCREASED NECK AND UPPER BACK PAIN. THIS PAIN IS CHRONIC FROM HIS SEVERE SPINAL STENOSIS BUT GOT WORSE TODAY. X1 W/WALKER TO BED. ER STATED THEY HAD TO STRAIGHT CATH HIM FOR A SAMPLE, PT STATED HE COULDNT GO IN URINAL WITH EVERYTHING GOING ON DOWN THERE THAT HE NORMALLY URINATES FINE, WILL MONITOR. PT LAYING IN BED WITH NO COMPLAINTS, DENIES CP, SOA, DIZZINESS, N/V, OR ANY SYMPTOMS. ADMISSION COMPLETE, MED RECONCIL UNABLE TO OBTAIN, PT STATES HIS CAN BRING MED LIST IN MORNING THAT HE DOES NOT KNOW WHAT HE TAKES EXCEPT INSULIN AND HYDROCODONE BUT DOESNT KNOW HOW MUCH OR TYPE. WILL CONTINUE TO MONITOR AND WITH POC.
[2019-01-03 06:24] LABS: HEMATOCRIT 37.5 % (42.0-52.0); HEMOGLOBIN 12.4 gm/dL (14.0-18.0); MCH 30.3 pg (26.0-34.0); MCHC 33.2 g/dL (28.0-37.0); MCV 91.3 fL (80.0-100.0); PLATELET COUNT 236 thou/uL (150-400); RBC 4.11 mil/uL (4.50-6.00); WBC 10.1 thou/uL (4.0-11.0)
[2019-01-03 06:46] LABS: ANION GAP 7 mmol/L (7-16); BUN 15 mg/dL (7-18); CHLORIDE 103 mmol/L (98-107); CO2 28 mmol/L (21-32); CREATININE 0.9 mg/dL (0.7-1.3); GLUCOSE 131 mg/dL (74-106); POTASSIUM 4.2 mmol/L (3.5-5.1); SODIUM 138 mmol/L (136-145); TROPONIN-I <0.06 ng/mL (<0.06)
[2019-01-03 07:36] LABS: ANISOCYTOSIS SLIGHT; METAMYELOCYTES 1 %
[2019-01-03 08:04] VITALS: BP 150/53
[2019-01-03 10:59] VITALS: BP 135/43
--- NOTE | 2019-01-03 14:16 | EKG ---
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 : 1935 Requested By: Walt Sierra Order Number: [id number] MD: Farhad Pena Measurements Intervals [place] Rate: 89 P: 37 MA: 148 QRS: 24 QRSD: 95 T: 49 QT: 342 QTc: 417 Interpretive Statements Sinus rhythm Normal tracing Compared to ECG 07/26/2018 21:19:54 No significant changes Electronically Signed On 01-03-2019 14:15:49 CDT by Farhad Pena [email or web address] ��������������������������������������������� <ELECTRONICALLY SIGNED> ���������������������������������������� By: Farhad Pena MD, [facility] ��������������������������������������������� 01/03/19 141 [id number] 55 Farhad Pena MD, [facility] /EPI
--- NOTE | 2019-01-03 14:40 | NUR ---
Met with patient and at bedside. Patient admits with CP. Patient and reside in independent apt at [facility]. Patient has a cane and walker that he does not use unless he feels needed. Plan home [place]
[2019-01-03 15:43] VITALS: BP 123/52
--- NOTE | 2019-01-03 17:00 | NUR ---
ASSESSMENT CHARTED - MEDS PER JOSÉ MIGUEL - IDA DIET AND FLUIDS. GIVEN HYDROCODONE 10- FOR CO'S OF BACK PAIN WITH GOOD RELIEF PATIENT STATES. SEEN BY PHYS THERAPY - PT UP WITH USE OF WALKER AND GAIT BELT. PT UNSTEADY AND SHAKY ON FEET. UP TO THE BATHROOM TO VOID. NO CO'S AT THE PRESENT TIME. AT THE BEDISDE,
[2019-01-03 19:24] VITALS: BP 140/60
--- NOTE | 2019-01-04 04:08 | NUR ---
ASSESSMENT DOCUMENTED.PT RESTING IN NO ACUTE DISTRESS.A/O WITH CONFUSION,FOLLOWS COMMANDS APPROPRIATELY.VSS.SBA ASSIST WITH ACTIVITIES/AMBULATION.RA W/O RESP DISTRESS.DENIES CHEST PAIN.POC IS TO CONT W/CURRENT TX.POSSIBLE DISCHARGE TODAY OR TOMORROW.
[2019-01-04 05:35] VITALS: BP 156/77
[2019-01-04 05:53] LABS: CALCIUM 9.1 mg/dL (8.5-10.1); CREATININE 0.9 mg/dL (0.7-1.3); POTASSIUM 4.5 mmol/L (3.5-5.1)
[2019-01-04 07:04] VITALS: BP 124/71
[2019-01-04 08:06] VITALS: BP 139/66
[2019-01-04 11:32] VITALS: BP 138/56
[2019-01-04] MEDS ORDERED: PREDNISONE 1 MG1 M1 PO (12:33)
[2019-01-04] MEDS ORDERED: AZITHROMYCIN 2250 MG PO (12:34)
[2019-01-04 13:25] VITALS: BP 138/56
--- NOTE | 2019-01-04 14:38 | NUR ---
PATIENT ASSESSMENT CHARTED, NO COMPLAINTS OF PAIN OR NAUSEA, VSS, PATIENT DISCHARGED TO HOME BY WHEELCHAIR ACCOMPANIED BY . DISCHARGE INSTRUCTIONS GIVEN, PATIENT STATED UNDERSTANDING.
== END 2019-01-04 14:42 | disposition home or self-care (01) | DRG 202 ==
LOC: ER 19:48 → 2N 01-03 01:33 → EROBS 01-03 01:33 → 2N 01-03 02:05 → ENTRNSPT 01-04 13:56 → EDTRNSPTSTS 01-04 14:24 → 2N 01-04 14:42
PROVIDERS: Emergency Medicine; Student in an Organized Health Care Education/Training Program; ADMIT Family Medicine
DX: J40 Bronchitis, not specified as acute or chronic (principal); G93.41 Metabolic encephalopathy; E11.9 Type 2 diabetes mellitus without complications; H40.9 Unspecified glaucoma; Z96.641 Presence of right artificial hip joint; G30.9 Alzheimer's disease, unspecified; G89.29 Other chronic pain; M25.512 Pain in left shoulder; F02.80 Dementia in other diseases classified elsewhere, unspecified severity, without behavioral disturbance, psychotic disturbance, mood disturbance, and anxiety; M06.9 Rheumatoid arthritis, unspecified; Z98.49 Cataract extraction status, unspecified eye; Z90.49 Acquired absence of other specified parts of digestive tract; Z86.73 Personal history of transient ischemic attack (TIA), and cerebral infarction without residual deficits; Z79.899 Other long term (current) drug therapy
CPT/HCPCS: 10081

== ENCOUNTER → 2019-01-30 | Outpatient (CLI) | payer OTHER ==
[~2019-01-30] MED LIST changes: +AZITHROMYCIN 2250 MG PO
== END ==
LOC: MRI 09:52
DX: M50.122 Cervical disc disorder at C5-C6 level with radiculopathy (principal); M48.02 Spinal stenosis, cervical region

== ENCOUNTER → 2019-02-16 | Outpatient (CLI) | payer OTHER ==
[~2019-02-16] VITALS: Ht 182.9 cm; Wt 73.0 kg
[2019-02-16 10:00] VITALS: BP 137/62
--- NOTE | 2019-02-16 10:07 | NUR ---
Pain Clinic Assessment: 1. History of Osteoarthritis: HIP History of Rheumatoid Arthritis: Not Applicable 2. Height: 6 ft. 0 in. 182.9 cm. Weight: 161.0 lb. oz. 73.029 kg. Patient's BMI: 21.8 3. Vital Signs: BP: 137/62 Pulse: 76 Resp: 18 Temp: 02 Sat: 93 ECG Mon: 4. Pain Intensity: 6 5. Fall Risk: Dizziness: N Needs help standing or walking: N Fallen in the last 3 months: Y Fall risk comments: FELL LAST WEEK IN KITCHEN. MIDDLE OF THE NIGHT- FELL ON BACK 6. Patient on Blood Thinner: Clopidogrel Bisulf(Plavix 7. History of Hypertension: N 8. Opioid Therapy greater than 6 weeks: Y Opiate Contract Signed: 11/10/17 9. Risk Assessment Tool Provided: LOW RISK 10. Functional Assessment Tool: 11. Recreational Drug Use: Never Drug Type: Tobacco Use: Never Smoker Tobacco Type: Amount or Packs/day: How Many Years: Alcohol Use: Yes Frequency: Weekly Quant: ONE A WEEK
--- NOTE | 2019-02-27 17:25 | HPC ---
[facility] [place] [address] PAIN MANAGEMENT CONSULTATION Name: KAYE RAGSDALE Room #: REG GAYATRI DamonTahminaAsh.#: [id number] Admission: 02/16/19 ������������������ Attend Phys: Benson Larry MD Discharge: ������������������ Date of : 34 Report #: [id number] THIS REPORT FOR: //name// CC: Farhad Larry DATE OF SERVICE: 02/16/2019 CHIEF COMPLAINT: Followup visit for ongoing chronic low back pain. HISTORY OF PRESENT ILLNESS: The patient returns to pain clinic today in followup for medication renewal. I have provided him with hydrocodone and methadone under terms of an opioid agreement. He has done well on his current doses. We have calculated his MME. We have checked his [facility] IMMUNOLOGIST and there are no unexpected entries. He is 83 years of age. He and his both feel that the side effects are manageable and is clearly worse without medication. Most of his pain is in his low back to the left of midline. He has some evidence of spinal stenosis at that level. In the past, I have not noticed a significant amount of scoliosis, but today, it appears that he has some rotational component in a dextrorotational direction. There is a fairly significant paravertebral muscle spasm along the right side of the lumbar spine. PQRS REVIEW: 1. He does have a longstanding history of diffuse osteoarthritis involving the hips. 2. His BMI is 21.8 and stable. 3. He is a fall risk, having fallen once in the last 3 months. In the middle of the night, he also fell. He was cautioned about careful maneuvering and using a walker or cane. He denies dizziness. He should use particular care because he is on the blood thinner, Plavix. He has no history of hypertension treatment at this time. 4. He is on opioid agreement, has completed an opioid risk tool and is considered at low risk for addiction. 5. He denies use of tobacco; drinks alcohol once a week in a social setting. Caution was urged due to his other centrally acting medications. He is on an opioid agreement signed in 2018. Drug screening was performed at my discretion. PHYSICAL EXAMINATION: VITAL SIGNS: Blood pressure is 137/62, heart rate 76, respirations 18. MUSCULOSKELETAL: He moves independently from sitting to standing position. His gait is very antalgic and he takes short measured steps. He would be considered a fall risk. He has difficulty with lumbar spine extension. He has pain also with forward flexion. Deep tendon reflexes are absent bilaterally in lower [address] [address] PAIN MANAGEMENT CONSULTATION Name: KAYE RAGSDALE Room #: REG [facility]..#: [id number] Admission: 02/16/19 ������������������ Attend Phys: Benson Larry MD Discharge: ������������������ Date of : 34 Report #: [id number] extremities. Straight leg raising is negative. The spasm noted along the right paravertebral region in the paraspinous muscles is new finding to me as where he complains of most of his pain. CHEST: Clear. CARDIAC: Rhythm is regular. IMPRESSION: 1. Chronic low back pain with spondylosis, 2. Myofascial component has a contribution today. 3. Management of high risk medications under terms of an opioid agreement. 4. Complex medication management with methadone. 5. Psoriatic arthritis. 6. Peripheral neuropathy. 7. Post-laminectomy syndrome. RECOMMENDATION: Trigger points. Paravertebral muscles were identified causing the localized muscle spasm pain. PROCEDURE: He was placed in the sitting position. Skin was prepped with ChloraPrep and a 27-gauge needle was used to infiltrate a total of 5 mL of 0.25% bupivacaine with 1 mg per mL of triamcinolone into multiple trigger points within the muscle itself. Gentle massage was applied. There was no bleeding. He tolerated the procedure well, pain was reduced. Prescription renewals were provided. Caution about safeguarding medications was once again discussed with the patient and his . They have done a good job of keeping his medications carefully maintained. Followup visit is planned in 3 months. ��������������������������������������������� <ELECTRONICALLY SIGNED> ���������������������������������������� By: Benson Larry MD ��������������������������������������������� 02/27/19 1725 1225 [id number] Benson Larry MD /nt
== END | disposition home or self-care (01) ==
LOC: PAIN 06:53
DX: M79.18 Myalgia, other site (principal); G89.29 Other chronic pain; M47.899 Other spondylosis, site unspecified; L40.50 Arthropathic psoriasis, unspecified; G62.9 Polyneuropathy, unspecified; M96.1 Postlaminectomy syndrome, not elsewhere classified; M19.90 Unspecified osteoarthritis, unspecified site; Z79.82 Long term (current) use of aspirin; Z79.899 Other long term (current) drug therapy

== ENCOUNTER → 2019-05-17 | Outpatient (CLI) | payer OTHER ==
[~2019-05-17] VITALS: Ht 182.9 cm; Wt 71.3 kg
[2019-05-17 14:11] VITALS: BP 128/60
--- NOTE | 2019-05-17 14:28 | NUR ---
Pain Clinic Assessment: 1. History of Osteoarthritis: HIP History of Rheumatoid Arthritis: Not Applicable 2. Height: 6 ft. 0 in. 182.9 cm. Weight: 157.2 lb. oz. 71.305 kg. Patient's BMI: 21.3 3. Vital Signs: BP: 128/60 Pulse: 70 Resp: 14 Temp: 02 Sat: 100 ECG Mon: 4. Pain Intensity: 3 5. Fall Risk: Dizziness: N Needs help standing or walking: N Fallen in the last 3 months: N Fall risk comments: FELL LAST WEEK IN KITCHEN. MIDDLE OF THE NIGHT- FELL ON BACK 6. Patient on Blood Thinner: Clopidogrel Bisulf(Plavix 7. History of Hypertension: N 8. Opioid Therapy greater than 6 weeks: Y Opiate Contract Signed: 11/10/17 9. Risk Assessment Tool Provided: LOW RISK-0 10. Functional Assessment Tool: 11. Recreational Drug Use: Never Drug Type: Tobacco Use: Never Smoker Tobacco Type: Amount or Packs/day: How Many Years: Alcohol Use: Yes Frequency: Quant:
--- NOTE | 2019-05-22 11:31 | HPC ---
[facility] [address] [place] [address] PAIN MANAGEMENT CONSULTATION Name: KAYE RAGSDALE Room #: REG GAYATRI Aguilar#: [id number] Admission: 05/17/19 ������������������ Attend Phys: Renuka Fried Discharge: ������������������ Date of : 34 Report #: [id number] THIS REPORT FOR: //name// CC: Renuka Rodríguez MD DATE OF SERVICE: 05/17/2019 CHIEF COMPLAINT: Chronic low back pain with radiculopathy and psoriatic arthritis. HISTORY OF PRESENT ILLNESS: This is a very pleasant 83-year-old gentleman who returns to the pain clinic today with his for medications that he uses to help treat his ongoing low back pain and bilateral foot pain. He reports a pain score of 3/10 today. It is worse in the morning and walking, though it is better when he is sitting and he feels that the methadone is very beneficial at the current level that he is taking. He denies any problems with constipation and daytime sleepiness, though he is falling asleep when in the chair today. He tells me at this time a day he normally is resting at home, but he is easily awakened and continues on with a conversation that we are discussing. ALLERGIES: No known drug allergies. CURRENT LIST OF MEDICATIONS: Methadone 5 mg in the morning, 2.5 mg midday and 2.5 mg at bedtime, hydrocodone 10/325 up to 4 times a day as needed, __ 60 mg daily, Flomax, Cymbalta, Lipitor, Levemir, gabapentin, Plavix, NovoLog, multivitamin, iron, methotrexate and numerous eye drops. PQRS: 1. 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 2. Height is 6 feet 0, weight is 157, BMI is 21. 3. Vital signs 128/60, pulse is 70, respirations 14, and oxygen sat is 100. 4. Pain score is 3/10. 5. Fall risk. He denies any dizziness. He has not fallen in the last 3 months and does not need help walking or standing. 6. The patient is on Plavix and does not take any medicines for hypertension. 7. Opiate therapy is greater than 6 weeks; therefore, an opioid signed contract is on the chart. Risk assessment is low. Functional assessment is . 8. Recreational drug use, he denies. He is not a smoker and occasionally drinks alcohol. We did check the prescription monitoring system. The patient is filling in a timely fashion. PHYSICAL EXAMINATION: [facility] [address] [place] [address] PAIN MANAGEMENT CONSULTATION Name: KAYE RAGSDALE Room #: REG [facility] Lauren#: [id number] Admission: 05/17/19 ������������������ Attend Phys: Renuka Fried Discharge: ������������������ Date of : 34 Report #: [id number] GENERAL: He is alert and orientated 83-year-old. He is well nourished and appears his stated age, placing his current pain score at 3/10. HEENT: Normocephalic, atraumatic. Extraocular eye muscles are intact. Mucous membranes are moist. NECK: Without adenopathy or JVD. MUSCULOSKELETAL: He has tenderness in his lower back, but does not radiate into his legs today. He moves from sitting to standing and walks with a stable gait, though slow. His lower extremity strength judged to be 5/5 in all major muscle groups. Also complains of pain in his bilateral feet, achy feeling. IMPRESSION: 1. Chronic intractable low back pain, post-laminectomy syndrome. 2. Psoriatic arthritis. 3. Peripheral neuropathy. 4. Management of high risk medications under terms of written opioid agreement. We reviewed the fact that opiate medications are being used to provide analgesia adequate to support activities of daily living, not attempting to achieve a specific pain score on the 0-10 Visual Analog Scale. The current opiate medications are providing sufficient analgesia to allow the patient to participate in activities of daily living. The patient is not exhibiting any aberrant behavior suggestive of drug diversion. The patient is not having any adverse reactions to medications. The patient is not suffering from daytime somnolence or mental acuity changes. The patient is managing opiate-induced constipation with appropriate ejxd-hvl-hrrxohh agents and dietary considerations. The patient was counseled on concern for caution with operating a motor vehicle while using opiate medications. A physical exam was performed and the patient's functional status was evaluated. All patients with back pain were advised against the bed rest greater than 4 days and were advised to return to normal activities. Pain score assessment was noted and the treatment plan was reviewed with the patient. All current medications, both prescribed and OTC were reviewed and reconciled on the electronic medical record. Tobacco screening was accomplished and smoking cessation was advised when indicated. BMI was noted and diet/exercise modification was recommended for all patients following outside normal parameters. I reviewed with the patient today their responsibilities to safeguard prescription medications, reviewed their responsibility to utilize medications only as prescribed by the physician. They are to seek and receive pain medications only from 1 physician group ([facility]). They are to use 1 pharmacy and keep the clinic informed if they change pharmacies. Their responsibilities include making followup visits in a timely fashion and to avoid abrupt discontinuation of medication usage. Their responsibilities further include bringing their medications (bottles from the pharmacy with residual [address] [address] PAIN MANAGEMENT CONSULTATION Name: KAYE RAGSDALE [id number] Admission: 05/17/19 ������������������ Attend Phys: Renuka Fried Discharge: ������������������ Date of : 34 Report #: [id number] pills) to the visit for possible confirmation of pill counts and the patient understands it is their responsibility to submit to random drug screens to ensure both that the medications prescribed are present, and that no other controlled substances are present. All prescriptions provided today were generated electronically. PLAN: 1. We discussed treatment options with the patient today. The patient feels that the current dose of methadone is very beneficial taking 5 in the morning and then 2.5 midday and 2.5 at bedtime. Scripts given for 3 months of 60 pills each. 2. Hydrocodone 10/325, #120 given for today, 4-week and 8-week. The patient takes an average of 3 every day and occasionally when more active, he will take the fourth medication. 3. The patient tells me his neck is not bothering him at all, which he had complained in the past, most recently had an x-ray, but he is not having no further pain in his neck. 4. The patient is seen by Dr. Benson Larry, who collaborated care today. The patient will return in 3 months. ��������������������������������������������� <ELECTRONICALLY SIGNED> ���������������������������������������� By: Renuka Fried ��������������������������������������������� 05/22/19 1131 1522 2236 Renuka Fried /amairani
== END ==
LOC: PAIN 06:55
DX: M54.5 Low back pain (principal); M96.1 Postlaminectomy syndrome, not elsewhere classified; G62.9 Polyneuropathy, unspecified; L40.50 Arthropathic psoriasis, unspecified; Z79.899 Other long term (current) drug therapy; Z79.891 Long term (current) use of opiate analgesic

== ENCOUNTER 2019-06-28 11:31 | Inpatient (IN) | payer OTHER ==
[~2019-06-28] VITALS: Ht 182.9 cm; Wt 68.0 kg
[2019-06-28 11:32] VITALS: BP 139/42
[2019-06-28 12:18] LABS: HEMATOCRIT 39.5 % (42.0-52.0); HEMOGLOBIN 12.9 gm/dL (14.0-18.0); MCHC 32.6 g/dL (28.0-37.0); PLATELET COUNT 290 thou/uL (150-400); RBC 4.29 mil/uL (4.50-6.00); RDW 14.8 % (10.5-14.5); WBC 5.3 thou/uL (4.0-11.0)
[2019-06-28 12:22] LABS: ANION GAP 11 mmol/L (7-16); BUN 11 mg/dL (7-18); CALCIUM 9.3 mg/dL (8.5-10.1); CHLORIDE 102 mmol/L (98-107); CO2 25 mmol/L (21-32); CREATININE 0.9 mg/dL (0.7-1.3); GLUCOSE 160 mg/dL (74-106); POTASSIUM 4.6 mmol/L (3.5-5.1); SODIUM 138 mmol/L (136-145)
[2019-06-28 12:32] LABS: ALBUMIN 3.5 g/dL (3.4-5.0); LIPASE 35 U/L (73-393); SGOT 28 U/L (15-37); SGPT 16 U/L (30-65); TOTAL BILIRUBIN 0.3 mg/dL (<0.1-1.0); TOTAL PROTEIN 7.2 g/dL (6.4-8.2); TROPONIN-I <0.06 ng/mL (<0.06)
[2019-06-28 12:50] LABS: ABSOLUTE NEUTROPHILS 3.4 thou/uL (1.4-8.2); ATYPICAL LYMPHS 1 %
[2019-06-28 12:51] LABS: ANISOCYTOSIS 1+
[2019-06-28 13:14] LABS: URINE BILIRUBIN NEGATIVE (Negative); URINE BLOOD NEGATIVE (Negative); URINE CLARITY CLEAR; URINE COLOR YELLOW; URINE GLUCOSE-RANDOM* NEGATIVE (Negative); URINE KETONES NEGATIVE (Negative); URINE LEUKOCYTES-REFLEX NEGATIVE (Negative); URINE NITRITE-REFLEX NEGATIVE (Negative); URINE PROTEIN (DIPSTICK) NEGATIVE (Negative); URINE UROBILINOGEN 0.2 E.U./dl (0.2-1.0)
--- NOTE | 2019-06-28 17:46 | EKG ---
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
--- NOTE | 2019-06-28 19:51 | NUR ---
ASSUMED CARE OF PT AT SHIFT CHANGE, REPORT CALLED AT THIS TIME AND GIVEN TO JC REGAN.
[2019-06-28 20:20] VITALS: BP 166/63
[2019-06-28 20:31] VITALS: BP 140/60
--- NOTE | 2019-06-29 01:26 | NUR ---
ASSUMED CARE OF PATIENT FROM ER. DENIES PAIN, NAUSEA OR VOMITTING. ABLE TO ANSWER MOST ADMISSION QUESTIONS. FALL PRECAUTIONS IN PLACE DUE TO INCREASING FORGETFULNESS THE NIGHT WENT ON. NPO AFTER MIDNIGHT. PLANNED EGD IN AM. POC ESTABLISHED, WILL CONTINUE TO MONITOR.
[2019-06-29 05:00] VITALS: BP 112/42
[2019-06-29 08:00] VITALS: BP 166/66
--- NOTE | 2019-06-29 09:59 | NUR ---
ASSUMED CARE OF PT AT 0700. PT SIGNED CONSENTS FOR EGD TO BE DONE TODAY. PER DOCTOR IF EGD IS TOLERATED WELL PT MAY DISCHARGE TODAY. FLUIDS ARE RUNNING AT 125 MLS/HR. PT IS A FALL RISK AND SPOKE WITH PT IN REGARDS TO GETTING OUT OF BED WITHOUT CALLING FOR HELP, PT UNDERSTOOD. BED ALARM ON AND IN LOWEST POSITION. CALL LIGHT IS WITHIN REACH. FALL PRECAUTIONS IN PLACE. WILL CONTINUE TO MONITOR PT.
--- NOTE | 2019-06-29 12:22 | NUR ---
INITIAL ASSESSMENT: Pt evaluated for d/c planning needs. Reviewed chart and spoke with nurse, pt and spouse. Pt is alert and oriented. Pt lives in independent apartment [facility]. Pt was independent with ADL's prior to admission. Pt has walker and cane for ambulation if needed. Pt plans on returning to apartment on d/c from hospital. WIll remain available to assist as needed.
[2019-06-29] MEDS ORDERED: PROTONIX40 M2 PO (15:19)
[2019-06-29 16:00] VITALS: BP 166/66
--- NOTE | 2019-07-03 17:06 | PATH ---
[facility] [place] [address] PATHOLOGY RPT PROCEDURE Name: DEACON WHITE Room #: 437-P DIS IN M.R.#: [id number] Admission: 06/28/19 Date of : 34 Discharge: 06/29/19 Report #: [id number] Path Case #: [id number] [facility] Accession Number: [id number] . 01 Material submitted: . PART A: duodenum - BIOPSY OF DUODENAL ULCER PART B: stomach - BIOPSY OF ANTRUM . 01 Clinical history: . Nausea/vomiting, gastritis, duodenal ulcer, hiatal hernia, Sepideh-Baker tear B. Rule out H. pylori . 02 Diagnosis: A. Small bowel mucosa, duodenal ulcer, endoscopic biopsy: - Moderate active duodenitis. - No small bowel architecture or villi present. - No increase in intraepithelial lymphocytes. . B. Gastric mucosa, antrum rule out H. pylori, endoscopic biopsy: - Moderate reactive gastropathy with intestinal metaplasia. - Negative for atrophy. - Negative for Helicobacter pylori (properly controlled immunohistochemical stain performed). (IUV/db; 07/03/2019) [facility] 07/03/2019 1427 Local . 02 Electronically signed: . Amaya Goel MD, Pathologist NPI- [id number] . 01 Gross description: . A. The specimen is received in formalin, labeled "Deacon White, biopsy of duodenal ulcer", is an irregular segment of mata soft tissue measuring 0.2 cm in greatest dimension. Entirely submitted in A1. . B. The specimen is received in formalin, labeled "Deacon White, biopsy of antrum", is an irregular segment of mata soft tissue measuring 0.5 cm in greatest dimension. Entirely submitted in B1. ([facility]; 07/02/2019) [facility] 07/02/2019 1750 Local . 02 Pathologist provided ICD-10: K29.80, K31.9 . 02 CPT . 115226, 292412, [id number] [address] [address] PATHOLOGY RPT PROCEDURE Name: DEACON WHITE Room #: 437-P [facility] IN M.R.#: [id number] Admission: 06/28/19 Date of : 34 Discharge: 06/29/19 Report #: [id number] Path Case #: [id number] Specimen Comment: A courtesy copy of this report has been sent to [phone] Specimen Comment: Report sent to Performed at: [address] [facility] [address], [place], [place] [id number] MD Saeed Vergara MD Phone: [phone] Performed at: [address] [facility] [id number] MD Amaya Goel MD Phone: [phone]
== END 2019-06-29 17:18 | disposition home or self-care (01) | DRG 391 ==
LOC: ER 11:31 → EROBS 13:59 → 4S 13:59 → ENTRNSPT 06-29 17:04 → 4S 06-29 17:18
PROVIDERS: Physician Assistant; ADMIT Family Medicine
PROC: 0DB98ZX Excision of Duodenum, Via Natural or Artificial Opening Endoscopic, Diagnostic (ICD-10-PCS; principal; 2019-06-29)
PROC: 0DB78ZX Excision of Stomach, Pylorus, Via Natural or Artificial Opening Endoscopic, Diagnostic (ICD-10-PCS; principal; 2019-06-29)
DX: K29.70 Gastritis, unspecified, without bleeding (principal); K22.6 Gastro-esophageal laceration-hemorrhage syndrome; K44.9 Diaphragmatic hernia without obstruction or gangrene; K26.9 Duodenal ulcer, unspecified as acute or chronic, without hemorrhage or perforation; G89.29 Other chronic pain; M54.9 Dorsalgia, unspecified; G30.9 Alzheimer's disease, unspecified; F02.80 Dementia in other diseases classified elsewhere, unspecified severity, without behavioral disturbance, psychotic disturbance, mood disturbance, and anxiety; E78.5 Hyperlipidemia, unspecified; L40.50 Arthropathic psoriasis, unspecified; Z96.641 Presence of right artificial hip joint; E10.9 Type 1 diabetes mellitus without complications; Z79.82 Long term (current) use of aspirin; Z86.73 Personal history of transient ischemic attack (TIA), and cerebral infarction without residual deficits; Z79.899 Other long term (current) drug therapy; Z90.49 Acquired absence of other specified parts of digestive tract
CPT/HCPCS: 10195; 62110; 62900; 70005

== ENCOUNTER 2019-07-05 09:29 | Emergency (ER) | payer OTHER ==
[~2019-07-05] VITALS: Ht 182.9 cm; Wt 67.6 kg
[~2019-07-05 09:29] MED LIST changes: +PROTONIX40 M2 PO
[2019-07-05 10:42] LABS: HEMATOCRIT 36.1 % (42.0-52.0); HEMOGLOBIN 11.8 gm/dL (14.0-18.0); MCH 29.9 pg (26.0-34.0); MCHC 32.6 g/dL (28.0-37.0); MCV 91.6 fL (80.0-100.0); PLATELET COUNT 287 thou/uL (150-400); RBC 3.94 mil/uL (4.50-6.00); RDW 14.8 % (10.5-14.5); WBC 6.7 thou/uL (4.0-11.0)
[2019-07-05 10:49] LABS: ANION GAP < 0 mmol/L (7-16); BUN 11 mg/dL (7-18); CALCIUM 9.8 mg/dL (8.5-10.1); CHLORIDE 97 mmol/L (98-107); CO2 29 mmol/L (21-32); CREATININE 0.9 mg/dL (0.7-1.3); GLUCOSE 133 mg/dL (74-106); POTASSIUM 3.3 mmol/L (3.5-5.1); SODIUM 120 mmol/L (136-145)
[2019-07-05 10:59] LABS: ALBUMIN 2.8 g/dL (3.4-5.0); LIPASE 29 U/L (73-393); SGOT 14 U/L (15-37); SGPT 10 U/L (30-65); TOTAL BILIRUBIN 0.6 mg/dL (<0.1-1.0); TOTAL PROTEIN 6.7 g/dL (6.4-8.2); TROPONIN-I <0.06 ng/mL (<0.06)
[2019-07-05 11:03] LABS: ABSOLUTE NEUTROPHILS 4.4 thou/uL (1.4-8.2); ANISOCYTOSIS 1+
[2019-07-05 13:08] LABS: URINE BILIRUBIN NEGATIVE (Negative); URINE BLOOD NEGATIVE (Negative); URINE CLARITY CLEAR; URINE COLOR YELLOW; URINE GLUCOSE-RANDOM* NEGATIVE (Negative); URINE KETONES NEGATIVE (Negative); URINE LEUKOCYTES-REFLEX NEGATIVE (Negative); URINE NITRITE-REFLEX NEGATIVE (Negative); URINE PROTEIN (DIPSTICK) NEGATIVE (Negative); URINE UROBILINOGEN 0.2 E.U./dl (0.2-1.0)
[2019-07-05 14:31] VITALS: BP 142/49
--- NOTE | 2019-07-06 12:22 | EKG ---
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
== END 2019-07-05 14:15 | disposition home or self-care (01) ==
LOC: ER 09:29
PROVIDERS: Emergency Medicine
DX: R11.2 Nausea with vomiting, unspecified (principal); R10.84 Generalized abdominal pain; E10.9 Type 1 diabetes mellitus without complications; G30.9 Alzheimer's disease, unspecified; Z90.49 Acquired absence of other specified parts of digestive tract; Z96.641 Presence of right artificial hip joint

== ENCOUNTER 2019-08-06 10:31 | Emergency (ER) | payer OTHER ==
[~2019-08-06] VITALS: Ht 182.9 cm; Wt 68.0 kg
[2019-08-06 11:14] VITALS: BP 144/46
== END 2019-08-06 11:30 | disposition home or self-care (01) ==
LOC: ER 10:31
DX: K64.8 Other hemorrhoids (principal); E10.9 Type 1 diabetes mellitus without complications; Z90.49 Acquired absence of other specified parts of digestive tract; Z86.73 Personal history of transient ischemic attack (TIA), and cerebral infarction without residual deficits; Z98.890 Other specified postprocedural states

== ENCOUNTER → 2019-10-15 | Outpatient (CLI) | payer OTHER ==
[~2019-10-15] VITALS: Ht 182.9 cm; Wt 68.6 kg
--- NOTE | ~2019-10-15 | HPC ---
[facility] [place] [address] PAIN MANAGEMENT CONSULTATION Name: KAYE RAGSDALE Room #: REG GAYATRI Islas.#: [id number] Admission: 10/15/19 Attend Phys: Benson Larry MD Discharge: Date of : 34 Report #: [id number] THIS REPORT FOR: cc: Farhad Rodríguez MD, Neal A. MD Morgan,Benson Chopra MD ~ THIS REPORT FOR: //name// CC: Farhad Larry DATE OF SERVICE: 10/15/2019 Followup visit for chronic low back pain with radiculopathy and psoriatic arthritis. I last saw the patient in April. He is here today for renewal of his medication. He continues to complain of pain on a daily basis, but is able to manage with the medicines provided. He is on an opioid agreement. I have reviewed his prescription drug monitoring program information and there are no unexpected entries. I am his only prescriber for opioids. Dr. Abby Caldwell does provide him with gabapentin for chronic peripheral neuropathy. PQRS: Positive for osteoarthritis of the hip. His BMI is 20.5. His blood pressure 129/74, heart rate 70, respirations 14, pain intensity is 4/10. He has not fallen in the last 3 months. He is on Plavix for vascular disease. He has no history of hypertension. He is on an opioid agreement, last signed in 2017, and we reviewed the important terms and safety measures regarding the use of opioids in treatment of chronic pain. His opioid risk tool assessment score of 0. His functional assessment score is an optimistic . He denies use of tobacco, drinks alcohol occasionally in social setting understanding that he must be very cautious with his use of pain medication. His current pain medications are methadone for baseline 5 mg in the morning, 2.5 noon and 2.5 in the evening, a total of 10 mg and hydrocodone 10/325 taken only as breakthrough pain as needed. He does not take it on a daily basis when the pain is well controlled. Methadone has done a good job. His is with him today during the visit and she has also acknowledged that he seems to function much better with pain medication, does not have cognitive side effects and his bowels are in good shape. He does not struggle with constipation. They are grateful for the pain relief that he has and improvement in day-to-day function. They will keep their medications carefully safeguarded. We prescribed medications through the electronic prescribing system. They will be able to pick those up over the course of the next [address] [place] [address] PAIN MANAGEMENT CONSULTATION Name: KAYE RAGSDALE Room #: REG GAYATRI Aguilar#: [id number] Admission: 10/15/19 Attend Phys: Benson Larry MD Discharge: Date of : 34 Report #: [id number] IMPRESSION: 1. Chronic intractable back pain, post-laminectomy syndrome. 2. Psoriatic arthritis. 3. Peripheral neuropathy. 4. Management of high risk medications under terms of an opioid agreement. PLAN: I renewed his medications for him, answered some questions and he left with his . We will see him back in the pain clinic in 3 months. By: 1632 2357 Benson Larry MD /nt
[2019-10-15 10:19] VITALS: BP 129/74
--- NOTE | 2019-10-15 10:34 | NUR ---
Pain Clinic Assessment: 1. History of Osteoarthritis: HIP History of Rheumatoid Arthritis: Not Applicable 2. Height: 6 ft. 0 in. 182.9 cm. Weight: 151.2 lb. oz. 68.584 kg. Patient's BMI: 20.5 3. Vital Signs: BP: 129/74 Pulse: 70 Resp: 14 Temp: 02 Sat: 96 ECG Mon: 4. Pain Intensity: 4 5. Fall Risk: Dizziness: Y Needs help standing or walking: N Fallen in the last 3 months: N Fall risk comments: FELL LAST WEEK IN KITCHEN. MIDDLE OF THE NIGHT- FELL ON BACK 6. Patient on Blood Thinner: Clopidogrel Bisulf(Plavix 7. History of Hypertension: N 8. Opioid Therapy greater than 6 weeks: Y Opiate Contract Signed: 11/10/17 9. Risk Assessment Tool Provided: LOW RISK-0 10. Functional Assessment Tool: 11. Recreational Drug Use: Never Drug Type: Tobacco Use: Never Smoker Tobacco Type: Amount or Packs/day: How Many Years: Alcohol Use: Yes Frequency: Quant:
== END ==
LOC: PAIN 06:53
DX: M96.1 Postlaminectomy syndrome, not elsewhere classified (principal); M54.16 Radiculopathy, lumbar region; G89.4 Chronic pain syndrome; L40.59 Other psoriatic arthropathy; G62.9 Polyneuropathy, unspecified; Z79.891 Long term (current) use of opiate analgesic; Z79.899 Other long term (current) drug therapy

== ENCOUNTER → 2020-02-14 | Outpatient (CLI) | payer OTHER ==
[~2020-02-14] VITALS: Ht 182.9 cm; Wt 66.3 kg
[~2020-02-14] MED LIST changes: +MIRALAX119 GM PO; +NAMENDA 10 MG T10 MG PO
[2020-02-14 10:51] VITALS: BP 136/49
--- NOTE | 2020-02-14 10:59 | NUR ---
Pain Clinic Assessment: 1. History of Osteoarthritis: HIP History of Rheumatoid Arthritis: Not Applicable 2. Height: 6 ft. 0 in. 182.9 cm. Weight: 146.2 lb. oz. 66.316 kg. Patient's BMI: 19.8 3. Vital Signs: BP: 136/49 Pulse: 56 Resp: 18 Temp: 02 Sat: 96 ECG Mon: 4. Pain Intensity: 5 5. Fall Risk: Dizziness: Y Needs help standing or walking: N Fallen in the last 3 months: N Fall risk comments: FELL LAST WEEK IN KITCHEN. MIDDLE OF THE NIGHT- FELL ON BACK 6. Patient on Blood Thinner: Clopidogrel Bisulf(Plavix 7. History of Hypertension: N 8. Opioid Therapy greater than 6 weeks: Y Opiate Contract Signed: 11/10/17 9. Risk Assessment Tool Provided: LOW RISK-0 10. Functional Assessment Tool: 11. Recreational Drug Use: Never Drug Type: Tobacco Use: Never Smoker Tobacco Type: Amount or Packs/day: How Many Years: Alcohol Use: Yes Frequency: Quant:
--- NOTE | 2020-02-15 09:00 | HPC ---
[facility] [address] [place] [address] PAIN MANAGEMENT CONSULTATION Name: KAYE RAGSDALE Room #: REG GAYATRI AlexAsh.#: [id number] Admission: 02/14/20 Attend Phys: Renuka Fried Discharge: Date of : 34 Report #: [id number] THIS REPORT FOR: cc: Farhad Rodríguez MD, Neal A. MD Hocker, Amanda CNS ~ CC: Benson Larry MD DATE OF SERVICE: 02/14/2020 CHIEF COMPLAINT: Chronic low back pain with radiculopathy and psoriatic arthritis. HISTORY OF PRESENT ILLNESS: This is a very pleasant 84-year-old gentleman who is here with his today to refill their medications that he takes for his ongoing chronic pain issues. Today, he states he is having some increased pain in his right hand. He is wanting Dr. Larry to look at those today. He is also finding that his low back and hip continued to be problematic as an aching, burning pain. He states his pain score is 5/10. Pain is increased with prolonged standing. He does fill the medications are beneficial. He is currently averaging 3 of his hydrocodone breakthrough pain medicines a day along with his methadone. We do allow him 4 pills total in a 24-hour period and explained to him that he may take an additional pill on days that his pain has increased. [place] and had been on lockdown, so he has not been as physically active as he normally would like. They are sushil enough to have a balcony so they are able to go outside during this time of the COVID virus. The dining room has not been open and they have had limited contact with any visitors in the past few months. ALLERGIES: No known drug allergies. CURRENT LIST OF MEDICATIONS: Namenda 10 mg b.i.d., MiraLax, methadone 5 mg b.i.d., hydrocodone 10/325 p.r.n., Flomax, Cymbalta, Lipitor, Levemir, gabapentin, Plavix, NovoLog, Trusopt, Travatan, multivitamin, aspirin and methotrexate. PQRS: 1. History of osteoarthritis in his hips as well as psoriatic arthritis that he is being treated for. 2. Height is 6 feet, weight is 146, BMI is 19. 3. Vital signs 136/49, pulse is 56, respirations 18, oxygen sat is 96. 4. Pain score is 5/10. 5. Complains of slight dizziness, does not need assistance walking. Has not fallen in the last 3 months. 6. He is on Plavix and does not take medicine for hypertension. 7. Opioid therapy is greater than 6 weeks; therefore, an opioid signed contract [address] [address] PAIN MANAGEMENT CONSULTATION Name: KAYE RAGSDALE Room #: REG CLI MRomero.#: [id number] Admission: 02/14/20 Attend Phys: Renuka Fried Discharge: Date of : 34 Report #: [id number] is on the chart. Risk assessment tool is low. Functional assessment is 1570. 8. Recreational drug use, he denies. He is not a smoker and occasionally drinks alcohol. According to the prescription monitoring system, he is filling appropriately for his medications, filling them in a timely fashion. He is due to fill those this week. His morphine mEq according to the CDC guidelines is 70. PHYSICAL EXAMINATION: GENERAL: He is alert gentleman, slightly forgetful at times. Placing his pain score today at 5/10. His is here present and able to recall most items. HEENT: Normocephalic, atraumatic. Extraocular eye muscles are intact. MUSCULOSKELETAL: He has tenderness in his lower back. He makes sitting to standing very slowly. He has a slow gait. His lower extremity strength is 5/5 in all major muscle groups. He has a painful right hand, possible thickening in a tendon. IMPRESSION: 1. Chronic intractable back pain, post-laminectomy syndrome. 2. Psoriatic arthritis. 3. Peripheral neuropathy. 4. Management of high risk medications under terms of written opioid agreement. PLAN: 1. We discussed treatment options with the patient today. The patient finds his medications beneficial, though at times he does have increased pain. He has currently only been taking 3 of his hydrocodone per day. I explained to him that he does have the option of taking the 4th. We did discuss timeframe of his medications and seems that he does go about 8 hours in between his hydrocodone doses throughout the day. I encouraged him to try every 6 hours to see if his pain is better controlled by taking a fourth pill. He verbalizes understanding. 2. We will have Dr. Benson Larry send his hydrocodone 10/325, #120 for today for an 8-week as well as his methadone 5 mg b.i.d., #60 for those same 3-month intervals. Dr. Benson Larry did examine his hand, thought it was the tendon that was causing increased pain in his hand. We encouraged him to try some Voltaren gel to see if that is beneficial. We also provided him with a fall that he may squeeze as well as extend his hand to see if that will loosen the ligament and see if that is beneficial. 3. The patient will return in 3 months as needed. <ELECTRONICALLY SIGNED> By: Renuka Fried 02/15/20 0900 1144 1306 Renuka collazo
== END ==
LOC: PAIN 07:58
PROVIDERS: ATTEND Clinical Nurse Specialist Adult Health
DX: M54.16 Radiculopathy, lumbar region (principal); R20.2 Paresthesia of skin; M96.1 Postlaminectomy syndrome, not elsewhere classified; F11.20 Opioid dependence, uncomplicated; L40.50 Arthropathic psoriasis, unspecified; G62.9 Polyneuropathy, unspecified; Z79.899 Other long term (current) drug therapy

== ENCOUNTER → 2020-05-08 | Outpatient (CLI) | payer OTHER ==
[~2020-05-08] VITALS: Ht 182.9 cm; Wt 61.5 kg
[~2020-05-08] MED LIST changes: +NEURONTIN 400400 M1 PO; +PLAVIX 75 MG TA75 MG PO
--- NOTE | ~2020-05-08 | HPC ---
[facility] [place] [address] PAIN MANAGEMENT CONSULTATION Name: KAYE RAGSDALE Room #: REG GAYATRI Roshan.#: [id number] Admission: 05/08/20 Attend Phys: Benson Larry MD Discharge: Date of : 34 Report #: [id number] THIS REPORT FOR: cc: Farhad Rodríguez MD, Neal A. MD Morgan,Benson Chopra MD ~ CC: Farhad Larry DATE OF SERVICE: 05/08/2020 CHIEF COMPLAINT: Chronic back pain with radiculopathy, psoriatic arthritis and dementia. I am seeing the patient for the first time since his . He is here today with his son, Arnol. He has progressive dementia, although his memory is good in relationship to some of the things we have discussed in the past and we were able to converse about ____ his without marked evidence of cognitive decline. There is no question that he is slower and he is clearly grieving the loss of his delightful who suddenly. A card was sent, but I am not certain if he received it. His son, Arnol, has been coming in to see him on a daily basis given the COVID restrictions. I am grateful that they have been able to keep an eye on him and make sure that he gets his medicines and [facility] care at the [facility]. They are no longer on lockdown. He complains of new pain that is in his buttocks and hips. This is fairly chronic and he has complained about it in the past. Medications have been helpful and I think all of us agree that there is no ____ medications that have been provided for him are strong and he has shown good tolerance with no significant side effects. I did address the possibility that there may be some sedation from the medicine, but no clear evidence that there is chronic cognitive dysfunction caused directly by the opioids. 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 All medications were reviewed and reconciled. PQRS: Positive for osteoarthritis in hips including psoriatic arthritis well noted throughout the record. He has lost some weight. His BMI is around 19.8, blood pressure is 136/49, heart rate 56, O2 sat 96% on room air. Pain intensity 5/10. He has fallen once last week in the kitchen in the middle of the night, falling on his back. He was not taken to the Emergency Room. He does not seem to have had increased issues related to that. He remains on Plavix. He is at low risk for addiction scoring 0 on the ORT score. Functional assessment score is 26, but I do not find it to be reliable. He denies use of tobacco and [facility] [address] [place] [address] PAIN MANAGEMENT CONSULTATION Name: KAYE RAGSDALE Room #: REG [facility] Roshan.#: [id number] Admission: 05/08/20 Attend Phys: Benson Larry MD Discharge: Date of : 34 Report #: [id number]. PHYSICAL EXAMINATION: As noted above. He is very cold today and shivering. He appears a little bit slow and is clearly grieving the loss of his . Tenderness across his low back and pain with movements. IMPRESSION: Chronic intractable back pain related to spondylosis and psoriatic arthritis. PLAN: I renewed his medications for him under terms of our written opioid agreement. They were sent electronically. I plan to see him back in 3 months. I would be willing to see him by telemedicine if that is easier. His son, Arnol said he enjoys getting out, so we will continue to see him in the clinic. By: 1220 1407 Benson Larry MD /nt
[2020-05-08 10:47] VITALS: BP 142/57
--- NOTE | 2020-05-08 11:10 | NUR ---
Pain Clinic Assessment: 1. History of Osteoarthritis: HIP History of Rheumatoid Arthritis: Not Applicable 2. Height: 6 ft. 0 in. 182.9 cm. Weight: 135.6 lb. oz. 61.508 kg. Patient's BMI: 18.4 3. Vital Signs: BP: 142/57 Pulse: 62 Resp: 14 Temp: 02 Sat: 98 ECG Mon: 4. Pain Intensity: 10 5. Fall Risk: Dizziness: N Needs help standing or walking: Y Fallen in the last 3 months: N Fall risk comments: FELL LAST WEEK IN KITCHEN. MIDDLE OF THE NIGHT- FELL ON BACK 6. Patient on Blood Thinner: Clopidogrel Bisulf(Plavix 7. History of Hypertension: N 8. Opioid Therapy greater than 6 weeks: Y Opiate Contract Signed: 11/10/17 9. Risk Assessment Tool Provided: LOW RISK-0 10. Functional Assessment Tool: 11. Recreational Drug Use: Never Drug Type: Tobacco Use: Never Smoker Tobacco Type: Amount or Packs/day: How Many Years: Alcohol Use: No Frequency: Quant:
== END ==
LOC: PAIN 06:43
PROVIDERS: ATTEND Anesthesiology Pain Medicine
DX: M54.16 Radiculopathy, lumbar region (principal); G89.29 Other chronic pain; L40.50 Arthropathic psoriasis, unspecified; F03.90 Unspecified dementia, unspecified severity, without behavioral disturbance, psychotic disturbance, mood disturbance, and anxiety; M47.9 Spondylosis, unspecified

== ENCOUNTER 2020-05-22 12:44 | Inpatient (IN) | payer OTHER ==
[~2020-05-22] VITALS: Ht 182.9 cm; Wt 57.2 kg
[2020-05-22 12:49] VITALS: BP 150/50
[2020-05-22 13:40] LABS: URINE BILIRUBIN NEGATIVE (Negative); URINE BLOOD NEGATIVE (Negative); URINE CLARITY CLEAR; URINE COLOR YELLOW; URINE GLUCOSE-RANDOM* NEGATIVE (Negative); URINE KETONES NEGATIVE (Negative); URINE LEUKOCYTES-REFLEX NEGATIVE (Negative); URINE NITRITE-REFLEX NEGATIVE (Negative); URINE PROTEIN (DIPSTICK) NEGATIVE (Negative)
[2020-05-22 14:57] LABS: ABSOLUTE NEUTROPHILS 4.2 thou/uL (1.4-8.2); BASOPHILS 0.6 % (0.0-2.0); EOSINOPHILS 1.4 % (0.0-3.0); HEMATOCRIT 39.7 % (42.0-52.0); HEMOGLOBIN 13.1 gm/dL (14.0-18.0); LYMPHOCYTES 16.2 % (24.0-44.0); MCH 31.7 pg (26.0-34.0); MCHC 33.1 g/dL (28.0-37.0); MCV 95.8 fL (80.0-100.0); PLATELET COUNT 296 thou/uL (150-400); POLYS 70.8 % (36.0-66.0); RBC 4.14 mil/uL (4.50-6.00); RDW 15.1 % (10.5-14.5)
[2020-05-22 15:14] LABS: CALCIUM 9.4 mg/dL (8.5-10.1); POTASSIUM 4.3 mmol/L (3.5-5.1)
[2020-05-22 15:20] LABS: ALBUMIN 3.5 g/dL (3.4-5.0); TOTAL BILIRUBIN 0.6 mg/dL (0.2-1.0); TOTAL PROTEIN 7.1 g/dL (6.4-8.2)
[2020-05-22] MEDS ORDERED: MAG-OXIDE400 MG PO (16:06)
[2020-05-22] MEDS ORDERED: COLACE100 MG PO (16:06)
[2020-05-22 16:30] VITALS: BP 125/46
[2020-05-22] MEDS ORDERED: NORCO 10-325 T1 EACH PO (17:36)
[2020-05-22] MEDS ORDERED: ANUSOL-HC30 GM TOP (17:38)
[2020-05-22] MEDS ORDERED: PROTONIX40 M4 PO (17:38)
[2020-05-22] MEDS ORDERED: BRIMONIDINE TART5 ML OPHTHALMIC (17:39)
[2020-05-22] MEDS ORDERED: XALATAN2.5 ML OPHTHALMIC (17:39)
[2020-05-22] MEDS ORDERED: LEVEMIR FL100 UNIT/2 SUBQ ×2 (17:40→17:42)
[2020-05-22] MEDS ORDERED: LIPITOR10 MG PO (17:40)
[2020-05-22] MEDS ORDERED: COSOPT PF EYE1 EACH OPHTHALMIC (17:40)
[2020-05-22] MEDS ORDERED: FOLIC ACID1 MG PO (17:40)
[2020-05-22] MEDS ORDERED: NOVOLOG100 UNIT/M SUBQ (17:43)
[2020-05-22 17:48] VITALS: BP 128/53
[2020-05-22 18:00] VITALS: BP 158/72
--- NOTE | 2020-05-23 05:41 | NUR ---
VSS-AFEBRILE. CONFUSED AND AGITATED AT BEGINNING OF SHIFT, BUT WAS ABLE TO SETTLE AND REST WELL. MULTIPLE ATTEMPTS TO HAVE A BM, AND WAS ATTEMPTING TO DISIMPACT HIMSELF WITH NO RESULTS. ANAL AREA WAS PINK. EDUCATED ON WHY HE SHOULD NOT BE ATTEMPTING TOP REMOVE HIS STOOL ON HIS OWN, HE VERBALIZED UNDERSTANDING. FALL PRECAUTIONS IN PLACE.
[2020-05-23 07:55] VITALS: BP 124/45
--- NOTE | 2020-05-23 16:12 | NUR ---
Assumed pt care at 7am.Pt in and out of bed with sba.Assessment completed.vss. Dr Rodríguez here,order noted.Pt has good appetite.Mag citrate given after breakfast and pt has large soft stool.Dr Rodríguez notified.Pt son here to visit,updates given.Pt anbulated in hallways with steady gait.Good endurance noted.Fall bundle in place for safety.Will continue to monitor.
--- NOTE | 2020-05-23 17:02 | NUR ---
SPOKE WITH EDDY IN [place] [facility] FA[facility]ED CLINICAL UPDATE RECEIVED CONFIRMAITON.
[2020-05-23 20:18] VITALS: BP 120/52
[2020-05-24 08:12] VITALS: BP 128/58
[2020-05-24] MEDS ORDERED: MIRALAX119 GM PO (09:14)
[2020-05-24 10:35] VITALS: BP 128/58
--- NOTE | 2020-05-24 11:47 | NUR ---
Assumed pt care at 7am.Pt in bed resting without c/o.Assessment completed.vss. Dr Rodríguez here,dc order noted.Pt ate 85% at breakfast with all am meds.Pt was excited about dc home and rn called pt son for hot die picker.Dc summary compile and reviewed withpt and son.Rx and dc summary copy given prior to dc to [facility] in with son at [id number]
--- NOTE | 2020-05-24 11:59 | NUR ---
PT DISCHARGING TODAY TO HOME WITH HH FAXED DC ORDERS/SUMMARY TO [facility] RECEIVED CONFIRMATION AND LEFT MSG WITH ANS. SERVICE.
== END 2020-05-24 11:37 | disposition home health service (06) | DRG 391 ==
LOC: ER 12:44 → 4W 16:34 → EROBS 16:34 → 4W 17:48
PROVIDERS: Physician Assistant; ADMIT Family Medicine; ATTEND Family Medicine
DX: K59.00 Constipation, unspecified (principal); E43 Unspecified severe protein-calorie malnutrition; G93.41 Metabolic encephalopathy; F11.20 Opioid dependence, uncomplicated; Z79.899 Other long term (current) drug therapy; Z96.641 Presence of right artificial hip joint; M06.9 Rheumatoid arthritis, unspecified; N40.0 Benign prostatic hyperplasia without lower urinary tract symptoms; Z96.649 Presence of unspecified artificial hip joint; I10 Essential (primary) hypertension; G30.9 Alzheimer's disease, unspecified; F02.80 Dementia in other diseases classified elsewhere, unspecified severity, without behavioral disturbance, psychotic disturbance, mood disturbance, and anxiety; E11.40 Type 2 diabetes mellitus with diabetic neuropathy, unspecified; E78.5 Hyperlipidemia, unspecified; T50.905A Adverse effect of unspecified drugs, medicaments and biological substances, initial encounter; L40.50 Arthropathic psoriasis, unspecified; G89.29 Other chronic pain; M54.9 Dorsalgia, unspecified; Z98.49 Cataract extraction status, unspecified eye; Z90.49 Acquired absence of other specified parts of digestive tract; Z86.73 Personal history of transient ischemic attack (TIA), and cerebral infarction without residual deficits; Y92.89 Other specified places as the place of occurrence of the external cause; Z87.11 Personal history of peptic ulcer disease
CPT/HCPCS: 10040

== ENCOUNTER → 2020-09-22 | Outpatient (CLI) | payer OTHER ==
[~2020-09-22] MED LIST changes: +ANUSOL-HC30 GM TOP; +BRIMONIDINE TART5 ML OPHTHALMIC; +COLACE100 MG PO; +COSOPT PF EYE1 EACH OPHTHALMIC; +FOLIC ACID1 MG PO; +LEVEMIR FL100 UNIT/2 SUBQ; +MAG-OXIDE400 MG PO; +NORCO 10-325 T1 EACH PO; +NOVOLOG100 UNIT/M SUBQ; +PROTONIX40 M4 PO; +XALATAN2.5 ML OPHTHALMIC
--- NOTE | 2020-09-23 07:29 | HPC ---
[facility] [address] [address] PAIN MANAGEMENT CONSULTATION Name: REMI RAGSDALE Room #: REG GAYATRI Aguilar#: [id number] Admission: 09/22/20 Attend Phys: Renuka Fried Discharge: Date of : 34 Report #: [id number] THIS REPORT FOR: cc: Farhad Rodríguez MD, Neal A. MD Hocker,Renuka DOUGLASS ~ DATE OF SERVICE: 09/22/2020 This is a Telemed appointment that I am speaking via the telephone with the patient due to COVID, speaking with them from [phone]. CHIEF COMPLAINT: Chronic back pain with radiculopathy, psoriatic arthritis and dementia. HISTORY OF PRESENT ILLNESS: This is an 85-year-old gentleman who I am speaking via the telephone. His daughter is there present as well, helping answer some of the questions. The patient has some dementia issues, though he is able to live at an independent living apartment at the [facility]. The patient tells me today his pain is a 2-3. He is doing quite well. He continues to have ongoing low back pain and burning sensation in his feet bilaterally from his neuropathy. He reports that his hip, which was bothersome at his last appointment is much improved and not complaining of those issues today. He denies any constipation issues that result of his opioid medication. The daughter reports to me that patient is now taking liquid gabapentin because he was having difficulty swallowing the larger pills. ALLERGIES: No known drug allergies. CURRENT LIST OF MEDICATIONS: Plavix, methadone 5 mg b.i.d., hydrocodone 10/325 b.i.d., Galantamine, Flomax, atorvastatin, Levemir, gabapentin, NovoLog, Trusopt, brimonidine tartrate drops, multivitamin, and methotrexate. PQRS: 1. He has ongoing osteoarthritic changes as well as psoriatic arthritis. 2. Height, weight and vital signs are deferred due to a Telemed appointment. Pain score 2-3 currently. He denies dizziness. Does need assistance with ambulation and has not fallen. The patient remains on Plavix as well as no medications for hypertension. His opioid therapy is greater than 6 weeks; therefore, an opioid signed contract is on the chart. Risk assessment is low. Functional assessment is . 3. Recreational drug use, he denies. He is not a smoker and does not drink alcohol. According to the prescription monitoring system, he is filling appropriately. His morphine mEq is under 50 MMEs according to the CDC guidelines. [address] [address] PAIN MANAGEMENT CONSULTATION Name: REMI RAGSDALE Room #: REG [facility] Lauren#: [id number] Admission: 09/22/20 Attend Phys: Renuka Fried Discharge: Date of : 34 Report #: [id number] PHYSICAL EXAMINATION: This is a review system. He is alert and orientated with some memory issues. His daughter is assisting with questions today. He is reporting his pain is much better in his hip. States he has burning sensation in his feet and pain in his low back. IMPRESSION: 1. Chronic intractable pain related to spondylosis. 2. Psoriatic arthritis. 3. Opioid medication management under written opioid agreement. 4. Peripheral neuropathy. PLAN: 1. We discussed treatment options with the patient today. The patient states that he has decreased taking as much hydrocodone. The family reports he was having significant constipation with taking 4 tablets a day. This has greatly improved with his reduction in hydrocodone, so they are not needing as many hydrocodone pills as they had in the past. We will adjust his opioid medications based on dates of last fill, releasing his methadone 5 mg tablets, #60 today, 4 week and 8 week. Hydrocodone will be released on 11/07/2020 for , #60. This will be a decrease and he recently filled his last prescription of hydrocodone on 09/13/2020. The family is aware of this decrease in, believes that two tablets is appropriate for his pain currently. They also believe that decreasing it will have less medications in his apartment, which he does have caregivers coming to assist him on a daily basis. 2. We did discuss the COVID vaccine. Unfortunately, the [facility] is not providing the COVID vaccines to the independent living population, so we discussed notifying the Department of Health in [facility] or contacting a [facility] to see if he may obtain a vaccination through them. 3. They are encouraged to make an appointment when they filled the last prescription and hopefully we will see them in the office and not a Telemed at their next appointment. The patient's care was collaborated today with Dr. Benson Larry. <ELECTRONICALLY SIGNED> By: Renuka Fried 09/23/20 0729 1451 40 Renuka Fried /amairani
== END ==
LOC: PAIN 07-03 08:36 → TELEPC 12:03
PROVIDERS: ATTEND Clinical Nurse Specialist Adult Health
DX: M54.16 Radiculopathy, lumbar region (principal); F03.90 Unspecified dementia, unspecified severity, without behavioral disturbance, psychotic disturbance, mood disturbance, and anxiety; L40.52 Psoriatic arthritis mutilans; G62.9 Polyneuropathy, unspecified; F11.20 Opioid dependence, uncomplicated; Z79.899 Other long term (current) drug therapy

== ENCOUNTER → 2020-12-04 | Outpatient (CLI) | payer OTHER ==
[~2020-12-04] VITALS: Ht 185.4 cm; Wt 69.7 kg
[2020-12-04 13:10] VITALS: BP 150/69
--- NOTE | 2020-12-04 13:24 | NUR ---
Pain Clinic Assessment: 1. History of Osteoarthritis: HIP History of Rheumatoid Arthritis: Not Applicable 2. Height: 6 ft. 1 in. 185.4 cm. Weight: 153.6 lb. oz. 69.672 kg. Patient's BMI: 20.3 3. Vital Signs: BP: 150/69 Pulse: 53 Resp: 16 Temp: 02 Sat: 97 ECG Mon: 4. Pain Intensity: 5 5. Fall Risk: Dizziness: N Needs help standing or walking: Y Fallen in the last 3 months: Y Fall risk comments: FELL LAST WEEK IN KITCHEN. MIDDLE OF THE NIGHT- FELL ON BACK 6. Patient on Blood Thinner: Clopidogrel Bisulf(Plavix 7. History of Hypertension: N 8. Opioid Therapy greater than 6 weeks: Y Opiate Contract Signed: 11/10/17 9. Risk Assessment Tool Provided: LOW RISK-0 10. Functional Assessment Tool: 11. Recreational Drug Use: Never Drug Type: Tobacco Use: Never Smoker Tobacco Type: Amount or Packs/day: How Many Years: Alcohol Use: No Frequency: Quant:
== END ==
LOC: PAIN 06:50
PROVIDERS: ATTEND Clinical Nurse Specialist Adult Health
DX: M47.26 Other spondylosis with radiculopathy, lumbar region (principal); L40.50 Arthropathic psoriasis, unspecified; G62.9 Polyneuropathy, unspecified; L97.519 Non-pressure chronic ulcer of other part of right foot with unspecified severity; E11.9 Type 2 diabetes mellitus without complications; F03.90 Unspecified dementia, unspecified severity, without behavioral disturbance, psychotic disturbance, mood disturbance, and anxiety; F11.20 Opioid dependence, uncomplicated; Z88.8 Allergy status to other drugs, medicaments and biological substances; Z79.899 Other long term (current) drug therapy

== ENCOUNTER → 2020-12-09 | Outpatient (CLI) | payer OTHER | LOC: HYPER 09:27 | PROVIDERS: ATTEND Specialist | DX: E11.621 Type 2 diabetes mellitus with foot ulcer (principal); I87.311 Chronic venous hypertension (idiopathic) with ulcer of right lower extremity; L97.512 Non-pressure chronic ulcer of other part of right foot with fat layer exposed; E11.40 Type 2 diabetes mellitus with diabetic neuropathy, unspecified; M54.16 Radiculopathy, lumbar region; L40.52 Psoriatic arthritis mutilans; M48.061 Spinal stenosis, lumbar region without neurogenic claudication; F02.80 Dementia in other diseases classified elsewhere, unspecified severity, without behavioral disturbance, psychotic disturbance, mood disturbance, and anxiety; F11.90 Opioid use, unspecified, uncomplicated; Z91.81 History of falling; Z79.899 Other long term (current) drug therapy; Z79.4 Long term (current) use of insulin; Z79.01 Long term (current) use of anticoagulants ==

== ENCOUNTER → 2020-12-23 | Outpatient (CLI) | payer OTHER | LOC: HYPER 11:04 | PROVIDERS: ATTEND Specialist | DX: E11.621 Type 2 diabetes mellitus with foot ulcer (principal); I87.311 Chronic venous hypertension (idiopathic) with ulcer of right lower extremity; L97.512 Non-pressure chronic ulcer of other part of right foot with fat layer exposed; E11.40 Type 2 diabetes mellitus with diabetic neuropathy, unspecified; M54.16 Radiculopathy, lumbar region; L40.52 Psoriatic arthritis mutilans; M48.061 Spinal stenosis, lumbar region without neurogenic claudication; F02.80 Dementia in other diseases classified elsewhere, unspecified severity, without behavioral disturbance, psychotic disturbance, mood disturbance, and anxiety; F11.90 Opioid use, unspecified, uncomplicated; Z91.81 History of falling; Z79.4 Long term (current) use of insulin; Z79.01 Long term (current) use of anticoagulants ==

== ENCOUNTER → 2020-12-30 | Outpatient (CLI) | payer OTHER | LOC: HYPER 10:53 | PROVIDERS: ATTEND Specialist | DX: E11.621 Type 2 diabetes mellitus with foot ulcer (principal); I87.311 Chronic venous hypertension (idiopathic) with ulcer of right lower extremity; L97.512 Non-pressure chronic ulcer of other part of right foot with fat layer exposed; B95.62 Methicillin resistant Staphylococcus aureus infection as the cause of diseases classified elsewhere; E11.40 Type 2 diabetes mellitus with diabetic neuropathy, unspecified; M54.16 Radiculopathy, lumbar region; L40.52 Psoriatic arthritis mutilans; M48.061 Spinal stenosis, lumbar region without neurogenic claudication; F02.80 Dementia in other diseases classified elsewhere, unspecified severity, without behavioral disturbance, psychotic disturbance, mood disturbance, and anxiety; F11.90 Opioid use, unspecified, uncomplicated; Z91.81 History of falling; Z79.4 Long term (current) use of insulin; Z79.01 Long term (current) use of anticoagulants ==

== ENCOUNTER → 2021-01-13 | Outpatient (CLI) | payer OTHER | LOC: HYPER 07:50 | PROVIDERS: ATTEND Specialist | DX: E11.621 Type 2 diabetes mellitus with foot ulcer (principal); I87.311 Chronic venous hypertension (idiopathic) with ulcer of right lower extremity; L97.512 Non-pressure chronic ulcer of other part of right foot with fat layer exposed; L84 Corns and callosities; B95.62 Methicillin resistant Staphylococcus aureus infection as the cause of diseases classified elsewhere; E11.40 Type 2 diabetes mellitus with diabetic neuropathy, unspecified; M54.16 Radiculopathy, lumbar region; L40.52 Psoriatic arthritis mutilans; M48.061 Spinal stenosis, lumbar region without neurogenic claudication; F02.80 Dementia in other diseases classified elsewhere, unspecified severity, without behavioral disturbance, psychotic disturbance, mood disturbance, and anxiety; F11.90 Opioid use, unspecified, uncomplicated; Z79.4 Long term (current) use of insulin; Z79.01 Long term (current) use of anticoagulants ==

== ENCOUNTER → 2021-02-03 | Outpatient (CLI) | payer OTHER | LOC: HYPER 07:46 | PROVIDERS: ATTEND Specialist | DX: E11.621 Type 2 diabetes mellitus with foot ulcer (principal); I87.311 Chronic venous hypertension (idiopathic) with ulcer of right lower extremity; L97.512 Non-pressure chronic ulcer of other part of right foot with fat layer exposed; E11.40 Type 2 diabetes mellitus with diabetic neuropathy, unspecified; M54.16 Radiculopathy, lumbar region; L40.52 Psoriatic arthritis mutilans; M48.061 Spinal stenosis, lumbar region without neurogenic claudication; B95.62 Methicillin resistant Staphylococcus aureus infection as the cause of diseases classified elsewhere; L84 Corns and callosities; E11.319 Type 2 diabetes mellitus with unspecified diabetic retinopathy without macular edema; F02.80 Dementia in other diseases classified elsewhere, unspecified severity, without behavioral disturbance, psychotic disturbance, mood disturbance, and anxiety; F11.90 Opioid use, unspecified, uncomplicated; Z91.81 History of falling; Z79.4 Long term (current) use of insulin; Z79.01 Long term (current) use of anticoagulants ==

== ENCOUNTER → 2021-02-17 | Outpatient (CLI) | payer OTHER | LOC: HYPER 07:51 | PROVIDERS: ATTEND Specialist | DX: E11.621 Type 2 diabetes mellitus with foot ulcer (principal); I87.311 Chronic venous hypertension (idiopathic) with ulcer of right lower extremity; L97.512 Non-pressure chronic ulcer of other part of right foot with fat layer exposed; E11.40 Type 2 diabetes mellitus with diabetic neuropathy, unspecified; M54.16 Radiculopathy, lumbar region; L40.52 Psoriatic arthritis mutilans; M48.061 Spinal stenosis, lumbar region without neurogenic claudication; B95.62 Methicillin resistant Staphylococcus aureus infection as the cause of diseases classified elsewhere; E11.319 Type 2 diabetes mellitus with unspecified diabetic retinopathy without macular edema; L40.50 Arthropathic psoriasis, unspecified; F11.90 Opioid use, unspecified, uncomplicated; F02.80 Dementia in other diseases classified elsewhere, unspecified severity, without behavioral disturbance, psychotic disturbance, mood disturbance, and anxiety; Z91.81 History of falling; Z79.4 Long term (current) use of insulin; Z79.01 Long term (current) use of anticoagulants; Z79.899 Other long term (current) drug therapy ==

== ENCOUNTER → 2021-03-05 | Outpatient (CLI) | payer OTHER | LOC: RAD 12:33 | PROVIDERS: ATTEND Family Medicine | DX: M81.0 Age-related osteoporosis without current pathological fracture (principal); I70.8 Atherosclerosis of other arteries ==

== ENCOUNTER → 2021-03-09 | Outpatient (CLI) | payer OTHER ==
[~2021-03-09] VITALS: Ht 185.4 cm; Wt 71.4 kg
[2021-03-09 10:26] VITALS: BP 143/79
--- NOTE | 2021-03-09 10:36 | NUR ---
Pain Clinic Assessment: 1. History of Osteoarthritis: HIP History of Rheumatoid Arthritis: psoriatic arthritis 2. Height: 6 ft. 1 in. 185.4 cm. Weight: 157.4 lb. oz. 71.396 kg. Patient's BMI: 20.8 3. Vital Signs: BP: 143/79 Pulse: 79 Resp: 14 Temp: 02 Sat: 97 ECG Mon: 4. Pain Intensity: 3 5. Fall Risk: Dizziness: N Needs help standing or walking: N Fallen in the last 3 months: N Fall risk comments: FELL LAST WEEK IN KITCHEN. MIDDLE OF THE NIGHT- FELL ON BACK 6. Patient on Blood Thinner: Clopidogrel Bisulf(Plavix 7. History of Hypertension: N 8. Opioid Therapy greater than 6 weeks: Y Opiate Contract Signed: 11/10/17 9. Risk Assessment Tool Provided: LOW RISK-0 10. Functional Assessment Tool: 11. Recreational Drug Use: Never Drug Type: Tobacco Use: Never Smoker Tobacco Type: Amount or Packs/day: How Many Years: Alcohol Use: No Frequency: Quant:
== END ==
LOC: PAIN 07:15
PROVIDERS: ATTEND Clinical Nurse Specialist Adult Health
DX: G89.4 Chronic pain syndrome (principal); M47.816 Spondylosis without myelopathy or radiculopathy, lumbar region; L40.59 Other psoriatic arthropathy; G62.89 Other specified polyneuropathies; M25.572 Pain in left ankle and joints of left foot; E11.9 Type 2 diabetes mellitus without complications; F03.90 Unspecified dementia, unspecified severity, without behavioral disturbance, psychotic disturbance, mood disturbance, and anxiety; Z79.4 Long term (current) use of insulin; Z79.891 Long term (current) use of opiate analgesic; Z79.899 Other long term (current) drug therapy

== ENCOUNTER → 2021-03-17 | Outpatient (CLI) | payer OTHER | LOC: HYPER 07:53 | PROVIDERS: ATTEND Specialist | DX: E11.621 Type 2 diabetes mellitus with foot ulcer (principal); I87.311 Chronic venous hypertension (idiopathic) with ulcer of right lower extremity; L97.512 Non-pressure chronic ulcer of other part of right foot with fat layer exposed; L84 Corns and callosities; L40.52 Psoriatic arthritis mutilans; B95.62 Methicillin resistant Staphylococcus aureus infection as the cause of diseases classified elsewhere; E11.40 Type 2 diabetes mellitus with diabetic neuropathy, unspecified; E11.319 Type 2 diabetes mellitus with unspecified diabetic retinopathy without macular edema; M54.16 Radiculopathy, lumbar region; M48.061 Spinal stenosis, lumbar region without neurogenic claudication; F11.90 Opioid use, unspecified, uncomplicated; F02.80 Dementia in other diseases classified elsewhere, unspecified severity, without behavioral disturbance, psychotic disturbance, mood disturbance, and anxiety; Z79.4 Long term (current) use of insulin; Z79.01 Long term (current) use of anticoagulants ==

== ENCOUNTER → 2021-04-14 | Outpatient (CLI) | payer OTHER | LOC: HYPER 08:05 | PROVIDERS: ATTEND Specialist | DX: E11.621 Type 2 diabetes mellitus with foot ulcer (principal); I87.311 Chronic venous hypertension (idiopathic) with ulcer of right lower extremity; L97.512 Non-pressure chronic ulcer of other part of right foot with fat layer exposed; E11.40 Type 2 diabetes mellitus with diabetic neuropathy, unspecified; M54.16 Radiculopathy, lumbar region; L40.52 Psoriatic arthritis mutilans; M48.061 Spinal stenosis, lumbar region without neurogenic claudication; B95.62 Methicillin resistant Staphylococcus aureus infection as the cause of diseases classified elsewhere; M19.90 Unspecified osteoarthritis, unspecified site; L84 Corns and callosities; F11.90 Opioid use, unspecified, uncomplicated; F02.80 Dementia in other diseases classified elsewhere, unspecified severity, without behavioral disturbance, psychotic disturbance, mood disturbance, and anxiety; Z91.81 History of falling; Z79.4 Long term (current) use of insulin; Z79.01 Long term (current) use of anticoagulants; Z79.899 Other long term (current) drug therapy ==

== ENCOUNTER → 2021-05-05 | Outpatient (CLI) | payer OTHER | LOC: HYPER 07:42 | PROVIDERS: ATTEND Specialist | DX: E11.621 Type 2 diabetes mellitus with foot ulcer (principal); I87.311 Chronic venous hypertension (idiopathic) with ulcer of right lower extremity; L97.512 Non-pressure chronic ulcer of other part of right foot with fat layer exposed; L84 Corns and callosities; L40.52 Psoriatic arthritis mutilans; E11.40 Type 2 diabetes mellitus with diabetic neuropathy, unspecified; B95.62 Methicillin resistant Staphylococcus aureus infection as the cause of diseases classified elsewhere; M54.16 Radiculopathy, lumbar region; M48.061 Spinal stenosis, lumbar region without neurogenic claudication; M19.90 Unspecified osteoarthritis, unspecified site; F11.90 Opioid use, unspecified, uncomplicated; F02.80 Dementia in other diseases classified elsewhere, unspecified severity, without behavioral disturbance, psychotic disturbance, mood disturbance, and anxiety; Z79.4 Long term (current) use of insulin; Z79.01 Long term (current) use of anticoagulants ==

== ENCOUNTER → 2021-05-26 | Outpatient (CLI) | payer OTHER | LOC: HYPER 08:05 | PROVIDERS: ATTEND Specialist | DX: E11.621 Type 2 diabetes mellitus with foot ulcer (principal); I87.311 Chronic venous hypertension (idiopathic) with ulcer of right lower extremity; L97.512 Non-pressure chronic ulcer of other part of right foot with fat layer exposed; L84 Corns and callosities; L40.52 Psoriatic arthritis mutilans; E11.40 Type 2 diabetes mellitus with diabetic neuropathy, unspecified; B95.62 Methicillin resistant Staphylococcus aureus infection as the cause of diseases classified elsewhere; M54.16 Radiculopathy, lumbar region; M48.061 Spinal stenosis, lumbar region without neurogenic claudication; M19.90 Unspecified osteoarthritis, unspecified site; F11.90 Opioid use, unspecified, uncomplicated; F02.80 Dementia in other diseases classified elsewhere, unspecified severity, without behavioral disturbance, psychotic disturbance, mood disturbance, and anxiety; Z79.4 Long term (current) use of insulin; Z79.01 Long term (current) use of anticoagulants ==

== ENCOUNTER → 2021-06-16 | Outpatient (CLI) | payer OTHER | LOC: HYPER 07:32 | PROVIDERS: ATTEND Specialist | DX: E11.621 Type 2 diabetes mellitus with foot ulcer (principal); I87.311 Chronic venous hypertension (idiopathic) with ulcer of right lower extremity; L97.512 Non-pressure chronic ulcer of other part of right foot with fat layer exposed; L84 Corns and callosities; L40.52 Psoriatic arthritis mutilans; E11.40 Type 2 diabetes mellitus with diabetic neuropathy, unspecified; B95.62 Methicillin resistant Staphylococcus aureus infection as the cause of diseases classified elsewhere; M54.16 Radiculopathy, lumbar region; M48.061 Spinal stenosis, lumbar region without neurogenic claudication; M19.90 Unspecified osteoarthritis, unspecified site; F11.90 Opioid use, unspecified, uncomplicated; F02.80 Dementia in other diseases classified elsewhere, unspecified severity, without behavioral disturbance, psychotic disturbance, mood disturbance, and anxiety; Z79.4 Long term (current) use of insulin; Z79.01 Long term (current) use of anticoagulants ==

== ENCOUNTER → 2021-06-18 | Outpatient (CLI) | payer OTHER ==
[~2021-06-18] VITALS: Ht 182.9 cm; Wt 74.2 kg
[2021-06-18 13:49] VITALS: BP 140/79
--- NOTE | 2021-06-18 13:56 | NUR ---
Pain Clinic Assessment: 1. History of Osteoarthritis: HIP History of Rheumatoid Arthritis: psoriatic arthritis 2. Height: 6 ft. 0 in. 182.9 cm. Weight: 163.6 lb. oz. 74.208 kg. Patient's BMI: 22.2 3. Vital Signs: BP: 140/79 Pulse: 84 Resp: 16 Temp: 02 Sat: 97 ECG Mon: 4. Pain Intensity: 3 5. Fall Risk: Dizziness: N Needs help standing or walking: Y Fallen in the last 3 months: N Fall risk comments: FELL LAST WEEK IN KITCHEN. MIDDLE OF THE NIGHT- FELL ON BACK 6. Patient on Blood Thinner: Clopidogrel Bisulf(Plavix 7. History of Hypertension: N 8. Opioid Therapy greater than 6 weeks: Y Opiate Contract Signed: 11/10/17 9. Risk Assessment Tool Provided: LOW RISK-0 10. Functional Assessment Tool: 11. Recreational Drug Use: Never Drug Type: Tobacco Use: Never Smoker Tobacco Type: Amount or Packs/day: How Many Years: Alcohol Use: No Frequency: Quant:
== END ==
LOC: PAIN 07:56
PROVIDERS: ATTEND Clinical Nurse Specialist Adult Health
DX: G89.29 Other chronic pain (principal); M47.26 Other spondylosis with radiculopathy, lumbar region; L40.59 Other psoriatic arthropathy; G62.9 Polyneuropathy, unspecified; E11.9 Type 2 diabetes mellitus without complications; F03.90 Unspecified dementia, unspecified severity, without behavioral disturbance, psychotic disturbance, mood disturbance, and anxiety; Z79.4 Long term (current) use of insulin; Z79.899 Other long term (current) drug therapy

== ENCOUNTER 2021-07-01 10:41 | Emergency (ER) | payer OTHER ==
[~2021-07-01] VITALS: Ht 185.4 cm; Wt 71.7 kg
--- NOTE | ~2021-07-01 | EMS ---
[address] [address] EMS Patient Care Report Name: REMI RAGSDALE Room #: DEP RON Aguilar#: [id number] Admission: 07/01/21 Attend Phys: Discharge: 07/01/21 Date of : 34 Report #: [id number] THIS REPORT FOR: //name// Report Transmitted: 07/01/2021 16:50 EMS Care Summary [facility] MED-ACT Incident [id number] @ 07/01/2021 10:04 Incident Location [address] [place] [address] Patient REMI RAGSDALE Male, 85 Years 1935 Patient Address [address] [place] [address] Patient History Diabetes,Neurological Condition - Other, Patient Allergies No known allergies, Patient Medications Atorvastatin, Methadone, Clopidogrel, Duloxetine, Fluoxetine, Alphagan, Calcium Citrate, Hydrocodone, Gabapentin, Memantine, Levemir, Novolog, Chief Complaint Decreased Motor Function of R hand Disposition Transported No Lights/[place] Dispatch Reason Stroke/CVA Transported To [facility] Narrative Dispatched to a assisted living center for a stroke like Pt. [address] [address] EMS Patient Care Report Name: REMI RAGSDALE Room #: DEP Lauren#: [id number] Admission: 07/01/21 Attend Phys: Discharge: 07/01/21 Date of : 34 Report #: [id number] Arrive on scene. Pt is seated on a chair, alert, breathing spontaneously, and supporting his own airway. Pt reports that he is having decreased motor function in his R hand. Pt reported that it began yesterday morning and he is unsure of what caused it. Pt denied any pain, weakness, blurred vision, or headaches. Pt reported that he just couldn't fully optical glass silverer anything or clench his hand into a fist. Rapid stroke assessment was negative and the Pt was able to stand and transfer w/ support. Staff reported normal mentation and physical ability. No trauma was found on the Pt and the Pt denied any additional complaint. En route Pt vitals were stable, and condition unchanged w/ no new complaints. Made Pt contact. Obtained baseline vitals and hx from staff and [facility]. Transferred Pt to cot and gave radio report to receiving facility. Upon arrival at [place], transferred Pt and Pt care to CARDIAC CATH TECHNICIAN. Cleared [facility] and returned to service. EOR. Initial Vitals @10:34P: 63,BP: 174/62,SpO2: 98, @10:29P: 63,R: 21,BP: 167/74,Pain: 0/10,GCS: 15,Temp: 97.4F,SpO2: 100,Revised Trauma: 12, Impression Generalized Weakness Procedures @10:36 Surgical Mask on Patient Response: Unchanged Timeline 10:02,Call Received 10:02,Psap Call 10:04,Dispatched 10:04,En Route 10:17,On Scene 10:21,At Patient 10:29,BP: 167/74 M,PULSE: 63,RR: 21 R,SPO2: 100 Ox,ETCO2: ,BG: ,PAIN: 0,GCS: 15, 10:30,Depart Scene 10:34,BP: 174/62 M,PULSE: 63,RR: R,SPO2: 98 Ox,ETCO2: ,BG: ,PAIN: ,GCS: , 10:36,Surgical Mask on Patient,Response: Unchanged 10:37,At Destination 10:57,Call Closed [facility] [address] [place] [address] EMS Patient Care Report Name: REMI RAGSDALE Room #: [facility] Lauren#: [id number] Admission: 07/01/21 Attend Phys: Discharge: 07/01/21 Date of : 34 Report #: [id number] Disclaimer v1.1 Copyright 2020 [employer] This EMS Care Summary contains data elements from the applicable legal record (which may be displayed differently). It is designed to provide pertinent information for the following purposes: continuity of care, clinical quality, and state data reporting. The complete legal record is available to ED staff and administrators of the receiving hospital in [employer] Patient Tracker. All data is provided "as is."
[~2021-07-01 10:41] MED LIST changes: +TRUSOPT OCUMETE10 ML EA. EYE; -TRUSOPT5 ML OP
[2021-07-01 11:51] LABS: EOSINOPHILS 5.1 % (0.0-3.0); HEMATOCRIT 36.6 % (42.0-52.0); LYMPHOCYTES 14.1 % (24.0-44.0); MCH 30.1 pg (26.0-34.0); MCHC 32.9 g/dL (28.0-37.0); MCV 91.6 fL (80.0-100.0); MONOCYTES 10.2 % (1.0-8.0); PLATELET COUNT 285 thou/uL (150-400); POLYS 69.6 % (36.0-66.0); RBC 3.99 mil/uL (4.50-6.00); RDW 15.5 % (10.5-14.5); WBC 7.2 thou/uL (4.0-11.0)
[2021-07-01 12:07] LABS: ANION GAP < 0 mmol/L (7-16); BUN 20 mg/dL (7-18); CHLORIDE 105 mmol/L (98-107); CO2 32 mmol/L (21-32); GLUCOSE 171 mg/dL (74-106); SODIUM 135 mmol/L (136-145)
[2021-07-01 12:18] LABS: ALBUMIN 1.6 g/dL (3.4-5.0); SGOT 23 U/L (15-37); SGPT 21 U/L (16-63); TOTAL BILIRUBIN 0.4 mg/dL (0.2-1.0); TOTAL PROTEIN 6.7 g/dL (6.4-8.2)
[2021-07-01] MEDS ORDERED: TAMSULOSIN HCL0.4 MG PO (12:59)
[2021-07-01] MEDS ORDERED: NOVOLOG FL100 UNIT/M SUBQ (13:00)
[2021-07-01] MEDS ORDERED: TRAVOPROST2.5 ML EA. EYE (13:01)
[2021-07-01 13:51] VITALS: BP 115/74
--- NOTE | 2021-07-01 14:20 | EKG ---
[address] [facility] [place] [address] ELECTROCARDIOGRAM REPORT Name: ROGESTARRSUMMERREMI L [facility] [id number] Admission: 07/01/21 Attend Phys: Discharge: 07/01/21 Date of : 34 Report #: [id number] [facility] ED Test Date: 2021-07-01 Test Time: 10:50:34 Pat Name: REMI RAGSDALE Department: Room: Gender: Illusionist: : 1935 Requested By: Vanessa Hazel Order Number: [id number] MD: Krishna Mendez Measurements Intervals [place] Rate: 61 P: 42 TX: 156 QRS: 35 QRSD: 103 T: 27 QT: 426 QTc: 429 Interpretive Statements Sinus rhythm Compared to ECG 07/05/2019 10:48:29 No significant changes Electronically Signed On 07-01-2021 14:20:12 CDT by Krishna Mendez [email or web address] <ELECTRONICALLY SIGNED> By: Krishna Mendez MD, [facility] 07/01/21 1420 1050 1050 Krishna Mendez MD, FACC /EPI
== END 2021-07-01 13:52 | disposition home or self-care (01) ==
LOC: ER 10:41
PROVIDERS: Physician Assistant
DX: G56.31 Lesion of radial nerve, right upper limb (principal); E10.39 Type 1 diabetes mellitus with other diabetic ophthalmic complication; L40.50 Arthropathic psoriasis, unspecified; G30.8 Other Alzheimer's disease; Z98.890 Other specified postprocedural states; Z90.49 Acquired absence of other specified parts of digestive tract; Z79.4 Long term (current) use of insulin; Z79.891 Long term (current) use of opiate analgesic; Z79.1 Long term (current) use of non-steroidal anti-inflammatories (NSAID); Z79.899 Other long term (current) drug therapy

== ENCOUNTER 2021-07-07 15:43 | Inpatient (IN) | payer OTHER ==
[~2021-07-07] VITALS: Ht 185.4 cm; Wt 65.3 kg
[~2021-07-07 15:43] MED LIST changes: +NOVOLOG FL100 UNIT/M SUBQ; +TAMSULOSIN HCL0.4 MG PO; +TRAVOPROST2.5 ML EA. EYE
[2021-07-07 15:49] VITALS: BP 138/44
[2021-07-07 16:38] LABS: ABSOLUTE NEUTROPHILS 9.4 thou/uL (1.4-8.2); BASOPHILS 0.5 % (0.0-2.0); EOSINOPHILS 0.1 % (0.0-3.0); HEMATOCRIT 37.5 % (42.0-52.0); HEMOGLOBIN 12.1 gm/dL (14.0-18.0); LYMPHOCYTES 7.1 % (24.0-44.0); MCH 29.5 pg (26.0-34.0); MCHC 32.4 g/dL (28.0-37.0); MCV 91.1 fL (80.0-100.0); MONOCYTES 10.8 % (1.0-8.0); PLATELET COUNT 348 thou/uL (150-400); POLYS 81.5 % (36.0-66.0); RBC 4.11 mil/uL (4.50-6.00); RDW 15.5 % (10.5-14.5); WBC 11.5 thou/uL (4.0-11.0)
[2021-07-07 16:50] LABS: CALCIUM 9.1 mg/dL (8.5-10.1); CREATININE 1.2 mg/dL (0.7-1.3)
[2021-07-07 17:00] LABS: ALBUMIN 3.1 g/dL (3.4-5.0); TOTAL BILIRUBIN 0.9 mg/dL (0.2-1.0); TOTAL PROTEIN 7.3 g/dL (6.4-8.2)
[2021-07-07 17:10] LABS: URINE BILIRUBIN NEGATIVE (Negative); URINE BLOOD 1+ (Negative); URINE CLARITY CLEAR; URINE COLOR YELLOW; URINE GLUCOSE-RANDOM* NEGATIVE (Negative); URINE KETONES TRACE (Negative); URINE LEUKOCYTES-REFLEX NEGATIVE (Negative); URINE NITRITE-REFLEX NEGATIVE (Negative); URINE PROTEIN (DIPSTICK) NEGATIVE (Negative); URINE SPECIFIC GRAVITY 1.025 (1.005-1.035); URINE UROBILINOGEN 0.2 E.U./dl (0.2-1.0)
[2021-07-07 17:20] LABS: SQUAMOUS 0-3 Few /LPF (0-3)
[2021-07-07 17:21] LABS: BACTERIA-REFLEX 1-9 Few /HPF (None Seen); CASTS None Seen /LPF (None Seen); URINE RBC 1-2 Rare /HPF (NONE SEEN); URINE WBC-REFLEX 0-5 Rare /HPF (0-5)
[2021-07-07 17:22] LABS: CRYSTALS None Seen /LPF (None Seen)
--- NOTE | 2021-07-08 07:10 | EKG ---
[address] [address] ELECTROCARDIOGRAM REPORT Name: ROGEREMI CLEMENTS Room #: 170-7 ADM IN ..#: [id number] Admission: 07/07/21 Attend Phys: Farhad Rodríguez MD Discharge: Date of : 34 Report #: [id number] [facility] ED Test Date: 2021-07-07 Test Time: 16:05:19 Pat Name: REMI RAGSDALE Department: Room: 170 Gender: M Bell Spinner Sousaphones: cw : 1935 Requested By: Nishant Rivera Order Number: [id number] MD: Krishna Mendez Measurements Intervals [place] Rate: 68 P: 43 NE: 150 QRS: 45 QRSD: 94 T: 41 QT: 398 QTc: 424 Interpretive Statements Sinus rhythm Baseline wander in lead(s) V5 Compared to ECG 07/01/2021 10:50:34 No significant changes Electronically Signed On 07-08-2021 7:10:20 PRECISION GRINDER by Krishna Mendez [email or web address] <ELECTRONICALLY SIGNED> By: Krishna Mendez MD, [facility] 07/08/21 0710 1605 1605 Krishna Mendez MD, FACC /EPI
[2021-07-08 08:00] VITALS: BP 133/42
[2021-07-08 12:00] VITALS: BP 140/46
[2021-07-08 16:00] VITALS: BP 137/38
[2021-07-08 16:40] VITALS: BP 140/46
[2021-07-08 16:50] VITALS: BP 131/45
--- NOTE | 2021-07-08 17:59 | NUR ---
ASSUMED PT CARE UPON ADMISSION TO UNIT AT 1745. PATIENT A&OX1. CLOSE TO NURSES STATION FOR CLOSE OBSERVATION. FALL PRECAUTIONS ARE IN PLACE, CALL LIGHT WITHIN REACH.
[2021-07-08 19:11] VITALS: BP 146/44
--- NOTE | 2021-07-09 04:06 | NUR ---
ASSUMED PT CRAE THIS PM. PT IS ALERT AND ORIENTED TO SELF. PT REFUSED EVENING MEDS. PT HAS AN OPEN SORE TO THE RIGHT BUTT. PT IS INCONTINENT B/B. PT IS ON RA., NO VISIBLE SIGN OF DISTRESS NOTED. FALL PRECAUTIONS IN PLACE. WILL CONTINUE TO MONITOR.
[2021-07-09 06:15] VITALS: BP 153/65
[2021-07-09 07:19] VITALS: BP 129/63
--- NOTE | 2021-07-09 10:28 | NUR ---
WOUND CONSULT; THE RIGHT BUTTOCK/RIGHT ISCHIUM HAS A DARKER AREA THAT IS CONSISTANT WITH AN UNSTABLE BLISTER. THE PERIWOUND THAT HAS ERYTHEMA THAT IS SLOW TO JANE AND IT IS OF CONCERN. THIS AREA MAY EVOLVE INTO SOMTHING MORE SERIOUS. THERE IS NO ESCHAR PRESENT AND NO S/S OF INFECTION ONLY INFLAMMATION. RECCOMMENDATIONS; -A LOW AIRLOSS BED PUMP. -ZGUARD BID -TURNING/REPOSITIONING MORE FREQUENTLY THAN EVERY 2 HOURS. DISCUSSED WITH STAFF.
[2021-07-09 11:09] LABS: HEMATOCRIT 34.1 % (42.0-52.0); MCH 29.6 pg (26.0-34.0); MCHC 32.4 g/dL (28.0-37.0); MCV 91.3 fL (80.0-100.0); RBC 3.73 mil/uL (4.50-6.00); RDW 15.7 % (10.5-14.5); WBC 6.3 thou/uL (4.0-11.0)
[2021-07-09 11:20] LABS: CREATININE 0.7 mg/dL (0.7-1.3)
[2021-07-09 11:24] LABS: CALCIUM 6.6 mg/dL (8.5-10.1)
[2021-07-09 11:26] LABS: POTASSIUM 2.6 mmol/L (3.5-5.1)
--- NOTE | 2021-07-09 12:02 | NUR ---
PT ADMITTED RELATED TO WEAKNESS. CM REVIEWED CHART AND SPOKE WITH CARE TEAM. CM MET WITH PT AT BEDSIDE THIS DAY. PT APPEARED TO BE A&O X4. CM ROLE INTRODUCED. PT INDICATED THAT HE RESID[facility] AT [facility] [place]. PT INDICATED HE USED A 4WW WITH A SEAT TO ASSIST WITH MOBILITY SCHEDULING ADMINISTRATOR. PT INDICATED HE HAD HOME HEALTH SCHEDULING ADMINISTRATOR. PT INDICATED HE HAD BEEN INDEPENDENET WIHT ADLS PT BUT HAS MEDICATIONS ADMINISTERED. PT INDICATED HE PLANS TO RETURN HOME ONCE MEDICALLY STABLE. CM CALLED AND SPOKE WITH PT'S SON KARTIK AND HE CONFIRMED THAT ABOVE. HE INDICATED THAT PT HAS PD SERVICES THROUGH THE [facility] WHERE HE GETS 5 VISITS A DAY BETWEEN THEM AND HIM AND THEY ADMINISTER EYE DROPS AND LIQUID GABAPENTIN. SON INDICATED THAT PT SEES DR. SUMNER HERE AT OP CLINIC AND HAD BEEN ON SERVICE WITH [facility] FOR WOUND CARE SCHEDULING ADMINISTRATOR. SON INDICATED THAT HE WAS INTERESTED IN SEEING IF THOSE SERVICES COULD BE DONE BY THE [facility]. CM INDICATED THAT CM COULD FIND OUT. SON INDICATED HE ALSO PLANS FOR PT TO RETURN TO THE [facility] WITH HH AND CONTINUES PD IS HE IS SAFE TO DO SO. CM FOLLOWING REGARDING DC PLANNING.
[2021-07-09 12:05] VITALS: BP 155/50
--- NOTE | 2021-07-09 17:58 | NUR ---
ASSUMED CARE AT SHIFT CHANGE. PT A/O X 3-4, CALM AND COOPERATIVE THIS SHIFT. WORKED WITH THERAPY WITH MIN/MOD A TO STAND AND TAKE STEPS PER THERAPY NOTES. PT UPSET ABOUT INCONTINENCE TODAY, REASSURED THIS IS NOTHING TO BE UPSET ABOUT AND CAN BE A NORMAL PART OF AGING. ATE 80% OF BREAKFAST AND 25% OF LUNCH. HAD SMALL BM X 3 THIS SHIFT. PAIN IN HIPS, REPOSITIONED WITH RELIEF. CONOR PUMP ADDED TO BED TODAY WELL. SON, KARTIK, VISITED TWICE TODAY. UPDATED ON POC. PT PROGRESSING TOWARDS POC GOALS.
[2021-07-09 19:39] VITALS: BP 148/59
[2021-07-10 00:08] VITALS: BP 146/51
--- NOTE | 2021-07-10 02:12 | NUR ---
ASSUMED PT CARE THIS PM. PT IS ALERT AND OREINTED X3. PT DID NOT C/O OF PAIN AND REFUSED SCHEDULED PAIN MEDS. MEDS WERE GIVEN PER EMAR ORDERS. PT HAS A CAST ON LEFT FOREARM. PT HAS TORRES IN PLACE. PT IS ON RA. NO VISIBLE SIGN OF DISTRESS NOTED. FALL PRECAUTIONS IN PLACE. WILL CONTINUE TO MONITOR.
[2021-07-10 04:07] VITALS: BP 130/63
--- NOTE | 2021-07-10 04:32 | NUR ---
PT ARRIVED ON THE UNIT AT 1930. PT IS ALERT AND OREINTED X4. PT WAS ORIENTED TO THE ROOM AND EDUCATED ON THE USE OF CALL LIGHT. PT HAS SUPRAPUBIC CATH IN PLACE. PT IS INCONTINENT OF BM. PT IS ON CONTACT ISOLATION FOR C-DIFF. PICTURES WERE TAKEN OF PT'S WOUNDS ON [place] SIDES OF THE KNEES AND COCCYX. MEDS WERE GIVEN PER EMAR ORDERS. FALL PRECAUTIONS IN PLACE. WILL CONTINUE TO MONITOR.
[2021-07-10 07:00] VITALS: BP 99/55
[2021-07-10 07:28] LABS: CALCIUM 8.3 mg/dL (8.5-10.1); CREATININE 0.9 mg/dL (0.7-1.3)
[2021-07-10] MEDS ORDERED: CEFDINIR300 MG PO (07:37)
[2021-07-10 07:59] LABS: POTASSIUM 3.8 mmol/L (3.5-5.1)
--- NOTE | 2021-07-10 15:25 | NUR ---
Emar not working stuck on insulin not able to chart. Pharmacy informed, medication for insulin are as follows and validated by nurse on the floor. 7 am bs 113 no insulin given and 180 bs at 12 am 3 ubits given as verified by rn on the unit.
--- NOTE | 2021-07-10 15:40 | NUR ---
CARE TEAM HAD INDICATED THAT PT IS MEDICALLY STABLE TO DC TO HOME [facility] HH AND PD SERVICES THIS AM. PT WAS SEEN BY PT AND THEY INDICATED THAT PT WOULD BENEFIT FROM POST ACUTE CARE STAY HE WAS WEAK. CM SPOKE WITH PT, PT'S SON JULIAN VERDUGO AT THE [facility], AND ACUTE REHAB. SON INDICATED HE WOULD LIKE PT ASSESSED FOR POSSIBLE 5BN ADMISSION. THEY ARE ABLE TO ACCEPT. CM NOTIFIED, PT, SON, AND DR. PATEL. COVID NOW TO BE DONE ORDERS TO BE AMMENDED AND PT TO DC TO 5N THIS LATE AFTERNOON. NO OTHER CM INTERVENTION INDICATED. CASE CLOSED.
--- NOTE | 2021-07-10 20:15 | NUR ---
Assumed pt care this am vs stable, alert to self and would get confused at forget at times, easily redirectable. Has a right hand and wrist brace on. Diet and medications are tolerated well. POC followed with no signs or verbalizations of distress noted. Pulled out IV at shift change. Pt is being assessed by Nick madrid. Condom cat in place draining yellow urine, endorsed to the night nurse.
[2021-07-10 20:41] VITALS: BP 155/64
[2021-07-10 21:00] VITALS: BP 141/51
--- NOTE | 2021-07-10 21:07 | NUR ---
Pt discharged to Room 505 at around 2100.
== END 2021-07-10 22:51 | DRG 689 ==
LOC: ER 15:43 → 4W 19:00 → EROBS 19:00 → 4W 07-08 17:03
PROVIDERS: Emergency Medicine; ADMIT Family Medicine; ATTEND Family Medicine
DX: N39.0 Urinary tract infection, site not specified (principal); G93.41 Metabolic encephalopathy; N17.9 Acute kidney failure, unspecified; E87.6 Hypokalemia; Z20.822 Contact with and (suspected) exposure to COVID-19; E10.9 Type 1 diabetes mellitus without complications; Z96.641 Presence of right artificial hip joint; R53.81 Other malaise; M06.9 Rheumatoid arthritis, unspecified; M19.90 Unspecified osteoarthritis, unspecified site; F03.90 Unspecified dementia, unspecified severity, without behavioral disturbance, psychotic disturbance, mood disturbance, and anxiety; M48.061 Spinal stenosis, lumbar region without neurogenic claudication; G56.31 Lesion of radial nerve, right upper limb; Z98.49 Cataract extraction status, unspecified eye; Z86.73 Personal history of transient ischemic attack (TIA), and cerebral infarction without residual deficits; Z90.49 Acquired absence of other specified parts of digestive tract; Z79.899 Other long term (current) drug therapy
CPT/HCPCS: 10045

== ENCOUNTER 2021-07-10 16:00 | Inpatient (IN) | payer OTHER ==
[~2021-07-10] VITALS: Ht 185.4 cm; Wt 65.3 kg
[~2021-07-10 16:00] MED LIST changes: +CEFDINIR300 MG PO
--- NOTE | 2021-07-11 01:27 | NUR ---
pt arrived to unit approx 2100 via bed from [facility]. pt awake and alert however confused and forgetful. pt cooperative. condom catheter in place attached to muniz bag. pt oriented to room and reminded several times where he is and what rehab he will bed doing as pt doesn't understand why he is here. pts blood sugar 71 and given juice. pt swallowing well with no problems. hs meds given late as meds not available when ordered. pt seems to be dozing off and on. bed alarm on and call light in reach. will continue to monitor.
[2021-07-11 05:27] LABS: HEMATOCRIT 34.4 % (42.0-52.0); HEMOGLOBIN 11.2 gm/dL (14.0-18.0); MCH 29.7 pg (26.0-34.0); MCHC 32.7 g/dL (28.0-37.0); MCV 90.9 fL (80.0-100.0); RBC 3.79 mil/uL (4.50-6.00); RDW 15.4 % (10.5-14.5); WBC 9.4 thou/uL (4.0-11.0)
[2021-07-11 06:01] LABS: CALCIUM 8.3 mg/dL (8.5-10.1); CREATININE 0.9 mg/dL (0.7-1.3); POTASSIUM 3.9 mmol/L (3.5-5.1)
[2021-07-11 06:15] LABS: FOLIC ACID 13.7 ng/mL (8.6-58.9)
--- NOTE | 2021-07-11 08:00 | NUR ---
ASSUMED CARE AT 0700. PATIENT IS ALERT TO SELF. CONFUSED. VERY SLEEPY THIS A.M. PATIENT IS IMPULSIVE, BUT REDIRECTABLE. PATIENT EDEN'S, BUT STIFF. PATIENT CONTINUES ON PO ABT WITHOUT ADVERSE AFFECT. LUNGS ARE CLEAR AND DEMINISHED ABD IS SOFT WITH BSX4. PATIENT IS INCONTINENT OF URINE. Z GUARD TO BOTTOM RED AREA. TURN Q2 HOURS. FALL AND SAFETY PROTOCOLS IN PLACE. DENIES PAIN AT THIS TIME. PT/OT/ST ALVIN IN PROGRESS. WILL CONTINUE TO MONITER.
[2021-07-11 09:13] VITALS: BP 141/51
[2021-07-11 09:14] VITALS: BP 137/61
--- NOTE | 2021-07-11 16:27 | NUR ---
I have reviewed the documentation by JOHNATHAN SWANSON from 07/11/21 to 07/11/21 and I concur with it. [facility]
[2021-07-11 19:35] VITALS: BP 144/55
--- NOTE | 2021-07-12 02:16 | NUR ---
ASSUMED CARE AT 1915 OF 07/11. PATIENT IS A&O TO SELF, CONFUSED AND IMPULSIVE, BUT EASILY REDIRECTED. CALL LIGHT USAGE EDUCATION REINFORCED. PATIENT DENIES PAIN OR SHORTNESS OF BREATH. TOLERATED ORAL MEDS WHOLE ONE AT A TIME WITH THIN LIQUIDS. PATIENT CAN BE INCONTINENT OF BLADDER, BUT HAS BEEN ASSISTED TO USE URINAL SUCCESFULLY. Z-GUARD APPLIED TO BOTTOM, AND ASSISTED WITH REPOSITIONING IN BED. FALL PRECAUTIONS IN PLACE, HOURLY ROUNDING CONTINUED. WILL CONTINUE TO MONITOR.
[2021-07-12 05:38] LABS: GLYCOHEMOGLOBIN (HGB A1C) 7.2 % (4.8-5.6)
[2021-07-12 08:00] VITALS: BP 144/55
--- NOTE | 2021-07-12 11:27 | NUR ---
Assumed Pt care at shift change, A/O to self, stated that he had a good night , took meds whole with water, fair appetite, pt asessed at bedside, weakness in extremities, limited ROM, slight generalized rigidity, pt cooperative and calm, labs reviewed, no concerns, VSS with soft BP, used urinal in bed , no c/o pain, will cont monitor for change.
--- NOTE | 2021-07-12 13:18 | HC ---
[facility] [place] [address] CONSULTATION Name: REMI RAGSDALE Room #: 505-P ADM IN M.R.#: [id number] Admission: 07/10/21 Attend Phys: Santiago Moncada MD Discharge: Date of : 34 Report #: [id number] THIS REPORT FOR: cc: Farhad Rodríguez MD, Neal A. MD [place], Roxane S. DO ~ NEUROLOGY CONSULT HISTORY OF PRESENT ILLNESS: The patient is an 85-year-old male who presents with worsening mental status. The patient was diagnosed with a urinary tract infection and acute kidney injury. He received IV fluids and antibiotics. He also has right arm weakness and has an acute radial nerve palsy. The patient was discharged home with a recommendation for Neurology followup and physical therapy. Now, the patient is debilitated and admitted to [address] [place] [address] acute rehab. Apparently, the patient was in independent living, but had a private duty assist visiting 5 days a week. He had apparently been independent with his activities of daily living. He also has a son in town who visited him daily. The patient is unable to provide any history. PAST MEDICAL HISTORY: Chronic pain, glaucoma, dementia, gastroesophageal reflux, diabetes, hyperlipidemia, radial nerve palsy, left carotid artery occlusion, psoriatic arthritis, stroke. PAST SURGICAL HISTORY: Cataract surgery, appendectomy, hernia surgery. MEDICATIONS: At home, the patient was on methotrexate 15 mg weekly, dorzolamide b.i.d., galantamine 24 mg daily, pantoprazole 40 mg daily, Levemir insulin 10 units at bedtime, tamsulosin 0.4 mg daily, NovoLog insulin 30 units daily, travoprost daily, latanoprost daily, brimonidine daily, atorvastatin 10 mg daily, folic acid 1 mg daily, gabapentin 400 mg t.i.d., Plavix 75 mg daily, MiraLax 17 grams daily. ALLERGIES: None. VITAL SIGNS: Temperature 36.6, pulse rate 68, respiratory rate 18, blood pressure 137/61. Bedside pulse oximetry 94% on room air. LABORATORY DATA: Hematology: White blood cell count 9.4, hemoglobin 11.2, hematocrit 34.4, MCV 90.9, platelet count 309,000. Chemistry: Sodium 136, potassium 3.9, chloride 104, carbon dioxide 25, BUN 12, creatinine 0.9, GFR 80, glucose 127, B12 367. Folate 13.7. TSH 1.320. IMAGING: CT scan of the head dated 07/07/2021 shows no acute intracranial abnormalities. There is diffuse cerebral [place] [address] CONSULTATION Name: REMI RAGSDALE Room #: 505-P [facility]#: [id number] Admission: 07/10/21 Attend Phys: Santiago Moncada MD Discharge: Date of : 34 Report #: [id number] cerebral volume loss. NEUROLOGIC EXAMINATION: Mentation: The patient is not oriented to place or time. When I asked him what year it was, he told me that it was 2010. He knew that he was in the hospital, but [place] [facility] [place] [facility] [place], but could not tell me the name. Motor exam demonstrates symmetrical upper and lower extremity weakness. The patient has hip flexor weakness and requires assist to stand. Reflexes are trace in the upper extremities, absent in the lower extremities. Plantar responses are flexor bilaterally. There is no evidence of cogwheel rigidity. There is no evidence of tremor. There is no evidence of dysmetria with [id number]. Sensory exam demonstrates significantly diminished proprioception at the great toes. Light touch appeared intact. IMPRESSION: I do not think this patient has Parkinson's disease. He does not have masked facies, nor does he have cogwheel rigidity or tremor. I realized that his gait is abnormal, but I suspect this is from diabetic neuropathy. However, I am going to order an MRI of the head. The last recorded MRI we have was from 2017 and at that time, it showed minimal small vessel ischemic changes. The patient also had an MRI of the lumbar spine. This was last done in 2016. At that time, it showed severe central canal stenosis at L3-L4. This can also cause leg weakness. So I will also repeat the MRI of the head along with an MRI of the lumbar spine on Tuesday. I have also ordered B12 and TSH. Thank you for your kind referral of this patient. Nancy Ball DO <ELECTRONICALLY SIGNED> By: Nancy Ball DO 07/12/21 1318 [id number] Nancy Ball DO /nt
[2021-07-12 20:00] VITALS: BP 137/62
--- NOTE | 2021-07-13 05:36 | NUR ---
ASSUMED CARE OF PT AT 1900. BEDSIDE REPORT RECIEVED. AMBROSIO ASSESSMENT COMPLETE. PT C/O GENERALIZED PAIN ALL OVER. Q2 HOUR REPOSITIONING FOR COMFORT. MEDS GIVEN PER OCT. INSULIN GIVEN INDICATED. ALL NEEDS MET. HOURLY ROUNDING CONTINUING. CALL LIGHT IN REACH
[2021-07-13 08:00] VITALS: BP 120/27
--- NOTE | 2021-07-13 12:13 | NUR ---
Nutrition: pt admitted with Parkinsons, medical complexity with general debility. Seen due to malnutrition consult, physician diagnosed, RD will defer. Noted weight of 126# in 2019, current 143#. 157# in February per pt is error. No recent weight loss reported and good appetite. Per documentation eating 50-100% of meals. Has drank ensure in the past- will offer glucerna once daily. ST indicating mild/moderate dysphagia and pt on chopped diet. Wound care stating buttocks/ischial blister, erythema nawaf area. Follow nutrition parameters but place as low risk with interventions in place.
--- NOTE | 2021-07-13 14:17 | NUR ---
ASSUMED Pt CARE AT SHIFT CHANGE, PT A/O TO SELF, REPORT RECIEVED AND ASSESSMENT DONE AT BEDSIDE CHARTED, NO C/O PAIN , REPOSITIONED, VSS WITH A SOFT DBP, PROVIDER NOTIFIED, TAKES PILLS WHOLE WITH WATER, DRESSING D,C,I AND CHAMGE PER DAILY ORDER, NO COMPLICATIONS NOTED, FAIR APPETITE, SAFETY PRECAUTIONS MAINTAINED, PT LOOKS COMFORTABLE, WILL CONT' POC.
--- NOTE | 2021-07-13 16:55 | NUR ---
DX: Kyrie Dupree visited with janett at bedside, he just finished up with breakfast, ate 100%. He is A & o x person, place and time. Some forgetfulness, pleasant and able to make his needs know. Intro to kyrie, dcp and team meeting. He lives at [facility], has walker with a seat. Has assist with medication management from [facility] in [facility] past. Skilled rehab in the past. Will cont following as needed for dc needs.
[2021-07-13 19:29] VITALS: BP 150/56
--- NOTE | 2021-07-14 01:37 | NUR ---
assumed care approx 1899 evening 07/13. pt lying in bed dozing off and on. pt incontinent of urine and also assisted with voiding small amt urine in urinal. pt took hs meds with water tolerating well. pt confused however cooperative. pt appears to be sleeping soundly. bed alarm on and call light in reach. will continue to monitor.
[2021-07-14 08:00] VITALS: BP 137/51
--- NOTE | 2021-07-14 13:25 | NUR ---
Team meeting, reccomendation: He not dx with Parkinson's. Possible going to kyphoplasty on Tuesday for L5 comp fx. On Plavix hold. Diet mech soft with thin liquid. Sever memory and cognitive deficits. Needs assist with medication and finances. BPCI. Dc Friday 07/20 for kyphoplasty and dc home setting . he will need 24/hr assist. Or he might need different level care for dc.
--- NOTE | 2021-07-14 17:48 | NUR ---
PT ALERT TO SELF AND PLACE ONLY. PT TOOK MEDS WHOLE IN APPLESAUCE, PT WASN'T FOR SURE IF HE SWALLOWED THEM WHEN ASKED. PER ST, CRUSH PILLS IN APPLESAUCE. PT WORKED WITH THERAPY TODAY. WILL CONTINUE TO MONITOR.
[2021-07-14 19:27] VITALS: BP 168/49
--- NOTE | 2021-07-15 03:04 | NUR ---
assumed care approx 1900 evening 07/14. pt lying in bed dozing off and on at change of shift. pt somewhat confused and forgetful however cooperative. pt voiding per urinal and also incontinent at times of urine. pt given hs meds crushed in applesauce tolerating well. pt appears to be sleeping soundly. bed alarm on and call light in reach. will continue to monitor.
[2021-07-15 07:31] VITALS: BP 137/54
[2021-07-15 08:41] VITALS: BP 137/54
--- NOTE | 2021-07-15 12:42 | PLAN ---
[facility] [place] [place] [address] REHAB UNIT PLAN OF CARE Name: REMI RAGSDALE Room #: 505-P ADM IN M.R.#: [id number] Admission: 07/10/21 Attend Phys: Santiago Moncada MD Discharge: Date of : 34 Report #: [id number] THIS REPORT FOR: cc: Farhad Rodríguez MD, Neal A. MD Smithson,Santiago Keating MD ~ DATE OF SERVICE: 07/13/2021 PROGRESS NOTE/OVERALL PLAN OF CARE HISTORY OF PRESENT ILLNESS: The patient was seen back today. He is in no distress. Last recorded temperature 36.8, pulse 101, respirations 14, blood pressure 137/62 last evening. He is pleasant. He does have a right radial nerve palsy with definite weakness when comparing to the left. Tone appeared to be intact of the upper and lower extremities. There is no tremor. No focal calf swelling. He has functional range of motion of both shoulders. Strength is probably a grade 4-/5 except for the right wrist as noted above. Lower extremity strength is probably grade 4- to 3+/5. He may have some bradykinesia that is noted. 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 Neurology did not think that the patient had Parkinson's disease. Functionally transfers have been max assist and gait was min assist 25 feet with a front-wheeled walker. In occupational therapy, upper body dressing is dependent with lower body dressing dependent. He is on a mechanical soft, thin liquid diet. ASSESSMENT: An 85-year-old male with the following problem list: 1. Medical complexity with generalized debilitation. 2. New right radial nerve palsy on the right. Neurology was recommending outpatient neuro followup. 3. History of orthostatic hypotension. 4. Bradykinetic movements that have been noted, but is not felt to have Parkinson's disease per Neurology. 5. Urinary tract infection. 6. Lumbar spinal stenosis. 7. Acute renal insufficiency. 8. History of dementia. PLAN: The overall plan of care is based on the pre-admit screen and information garnered from therapy assessments. 1. Estimated length of stay is probably around 10-14 days. 2. Medical prognosis is reasonably good. 3. Anticipated interventions includes the interdisciplinary acute inpatient rehabilitation program. 4. Anticipated functional outcomes would be for [place] [address] REHAB UNIT PLAN OF CARE Name: REMI RAGSDALE Room #: 505-P [facility] IN [facility]#: [id number] Admission: 07/10/21 Attend Phys: Santiago Moncada MD Discharge: Date of : 34 Report #: [id number] independent with basic transfers, mobility and ADLs, so he can hopefully return back to his prior living situation. He was utilizing a front-wheeled walker. 5. Discharge destination would be back to his independent living apartment alone, but he does have private duty assistance as well. There is a son in town who is noted to visit daily. 6. Expected therapy by discipline includes PT, OT and speech 1 hour per day each, 5 days a week throughout the duration of the acute inpatient rehabilitation stay. ADDENDUM: The patient's prognosis for significant practical improvement within a reasonable period of time appears good. Given the patient's complex medical condition and risk of further medical complication, rehabilitation services could not be safely provided at the lower level of care such as a intermediate facility. <ELECTRONICALLY SIGNED> By: Santiago Moncada MD 07/15/21 1242 [id number] Santiago Moncada MD /nt
--- NOTE | 2021-07-15 12:49 | NUR ---
Assumed pt care at shift change, pt assessed as charted, A/O to self, calm and cooperative, vss , labs reviewed no concerns, gluc controlled, fair appetite, took meds crushed in apple sauce, worked with PT/OT, Pt remained safe and comfortable, all safety precautions applied; will cont' monitor for change and follow POC.
[2021-07-15 19:20] VITALS: BP 133/65
--- NOTE | 2021-07-16 02:51 | NUR ---
ASSUMED CARE AT 1915 OF 07/15. PATIENT IS A&O TO SELF, CONFUSED BUT EASILY REDEIRECTED AND COOPERATIVE. PATIENT DENIES PAIN OR SHORTNESS OF BREATH. TOLERATED ORAL MEDICATIONS CRUSHED IN APPLE SAUCE. REPOSITIONED Q2H, DRESSING ON RIGHT BUTTOCK IS IN PLACE AND INTACT. ASSISTED WITH USING URINAL. FALL PRECAUTIONS IN PLACE, CALL LIGHT WITHIN REACH. WILL CONTINUE TO MONITOR.
[2021-07-16 08:00] VITALS: BP 153/43
--- NOTE | 2021-07-16 14:55 | NUR ---
PT SCHEDULE CHANGED AND RN ASSISTED HIM BACK TO BED AFTER SITTING UP FOR >30 MINUTES AFTER LUNCH. DUE TO C/O FATIGUE AND BACK PAIN, WHEN TRANSFERRING, NOTED THAT PT'S RLE BUCKLED, BUT OTHERWISE THE STAND-PIVOT TRANSFER WAS MIN TO MOD ASSIST FROM SIT TO STAND AND MIN ASSIST TO LOWER TO THE BED. PT WAS ABLE TO GET HIS LEGS INTO THE BED, AND REQUIRED ASSIST WITH BED MOBILITY DUE TO BACK PAIN. PAIN SUBSIDED AND PT LATER SEEN RESTING WITH EYES CLOSED. REPORT GIVEN TO ONCOMING RN.
--- NOTE | 2021-07-16 18:05 | HC ---
[facility] [place] [address] CONSULTATION Name: REMI RAGSDALE Room #: 505-P [facility] IN M.R.#: [id number] Admission: 07/10/21 Attend Phys: Santiago Moncada MD Discharge: Date of : 34 Report #: [id number] THIS REPORT FOR: cc: Farhad Rodríguez MD, Neal A. MD Althoff,Sarthak Richard MD ~ DATE OF SERVICE: 07/15/2021 CHIEF COMPLAINT: Gluteal ulceration. HISTORY OF PRESENT ILLNESS: This is an 85-year-old male patient who I have been asked to see on the rehab floor for an ulceration to the right gluteal region. The patient has a history of significant dementia and cannot provide much information about himself. He has a history of a left carotid occlusion, diabetes, gastroesophageal reflux, psoriatic arthritis, cerebrovascular accident, glaucoma. The patient is admitted to the rehab with diagnosis of compression fracture of L5, UTI and generalized weakness. FAMILY HISTORY: Unknown. SOCIAL HISTORY: The patient apparently lives independently. No recent history of alcohol or tobacco use. REVIEW OF SYSTEMS: Not obtainable due to the patient's dementia. MEDICATIONS: Include methotrexate, Trusopt eyedrops, galantamine, pantoprazole, insulin, tamsulosin, Xalatan eyedrops, brimonidine, atorvastatin, folic acid, gabapentin, clopidogrel, cefdinir and methadone. ALLERGIES: No known drug allergies. REVIEW OF SYSTEMS: Not obtainable due to the patient's underlying dementia. PHYSICAL EXAMINATION: VITAL SIGNS: At this time include temperature 36.3, pulse 57, respiration 19, blood pressure 137/54. GENERAL: This is a chronically ill-appearing male patient who appears to be somnolent and in no distress. HEENT: Head normocephalic. Nose and throat are clear. NECK: Supple. LUNGS: Diminished. HEART: Regular. ABDOMEN: Soft and bowel sounds present. Pelvic region demonstrates what appears to be a stage III pressure ulcer of the right gluteal region. It is shallow. There is a mix of granulation and some fibrin present. It is not overtly infected. [facility] [address] [place] [address] CONSULTATION Name: REMI RAGSDALE Room #: 505-P [facility] IN [facility].#: [id number] Admission: 07/10/21 Attend Phys: Santiago Moncada MD Discharge: Date of : 34 Report #: [id number] EXTREMITIES: Lower extremities without clubbing or cyanosis. NEUROLOGIC: The patient does arouse. He appears to have symmetrical movement. He is confused. LABORATORY STUDIES: Include white blood cell count 9.4 with a hemoglobin 11.2, hematocrit of 34.4, platelet count is 309,000. Sodium 136, potassium 3.9, chloride 104, CO2 of 25, BUN 12, creatinine 0.9. CLINICAL IMPRESSION: 1. Stage 3 pressure ulceration to the right gluteal region. 2. Urinary tract infection. 3. Lumbar spinal stenosis. 4. Acute kidney injury. 5. Dementia. RECOMMENDATIONS: At this point in time, we will recommend Silvadene, Xeroform and then a bordered foam daily to the gluteal area. He will need q.2 hours turning, repositioning and offloading as much as possible. Continue with aggressive physical and occupational therapy. Continue with medical management and nutritional support. I do appreciate being asked to see him in consultation. <ELECTRONICALLY SIGNED> By: Sarthak Marin MD 07/16/211804 [id number] 24 Sarthak Marin MD /nt
[2021-07-16 19:46] VITALS: BP 146/53
--- NOTE | 2021-07-16 23:21 | NUR ---
ASSUMED CARE OF PT AT 1915. PT IS A&OX3. IS FORGETFUL. IS ON ROOM AIR. REPORTS PAIN IN RIGHT HIP THAT IS BEING MANAGED BY PAIN MEDS & OTHER THERAPUETIC TECHNIQUES. PT IS STABLE. IS ABLE TO TURN SELF IN BED. HEELS OFF LOADED. IS INCONTINENT. IS UP WITH 1 ASSIST, GB, WALKER. FALL PRECAUTIONS & HOURLY ROUNDING CONTINUED THIS SHIFT. LABS & VITALS REVIEWED. PT DOES NOT USE CALL LIGHT. YELLS OUT FOR ASSISTANCE. EDUCATION PROVIDED. PT WAS REORIENTATED TO THE USE OF THE CALL LIGHT. IS CURRENTLY ASLEEP. WILL CONTINUE TO MONITOR. CALL LIGHT WITHIN REACH. ACROSS FROM NURSE STATION.
[2021-07-17 04:54] LABS: ABSOLUTE NEUTROPHILS 6.8 thou/uL (1.4-8.2); BASOPHILS 0.6 % (0.0-2.0); CALCIUM 8.6 mg/dL (8.5-10.1); EOSINOPHILS 4.9 % (0.0-3.0); HEMATOCRIT 32.1 % (42.0-52.0); HEMOGLOBIN 10.6 gm/dL (14.0-18.0); LYMPHOCYTES 13.9 % (24.0-44.0); MCH 29.8 pg (26.0-34.0); MCHC 33.1 g/dL (28.0-37.0); MCV 89.8 fL (80.0-100.0); MONOCYTES 11.1 % (1.0-8.0); PLATELET COUNT 444 thou/uL (150-400); POLYS 69.5 % (36.0-66.0); POTASSIUM 4.2 mmol/L (3.5-5.1); RBC 3.57 mil/uL (4.50-6.00); RDW 15.4 % (10.5-14.5); WBC 9.8 thou/uL (4.0-11.0)
[2021-07-17 08:00] VITALS: BP 141/44
--- NOTE | 2021-07-17 12:09 | NUR ---
85 yr old male on acute rehab unit. neurology consulted, found to have acute L5 compression fx , IR consulted, recommendation for kyphoplasty. pt to transfer to acute care for procedure 07/20/21. sit to stand min a, cga 150ft fww, and severe cog/memory deficit. He is from [facility] [place]. Will cont to assist as needed for discharge needs.
[2021-07-17 19:30] VITALS: BP 148/63
--- NOTE | 2021-07-17 23:01 | NUR ---
PT ALERT AND ORIENTED X 1. VOIDED PER URINAL WITH ASSIST. PT TAKES MEDS CRUSHED IN APPLESAUCE WITHOUT DIFFICULTY. PT DENIES PAIN OR DISCOMFORT. BED ALARM ON FOR SAFETY. PT APPEARS TO BE SLEEPING ON HOURLY ROUNDS.
--- NOTE | 2021-07-18 08:19 | NUR ---
PT UP TO W/C THIS AM FOR BREAKFAST AND TOLERATING WELL. PT LUNGS CLEAR AND ON ROOM AIR. PT DENIES ANY PAIN AT THIS TIME. PT TOOK MEDS CRUSHED IN APPLESAUCE. PT HAS WOUND TO BUTTOCKS WITH DRESSING. PT UP X1 ASSIST TO W/C.
[2021-07-18 08:30] VITALS: BP 138/56
--- NOTE | 2021-07-18 16:28 | NUR ---
PT HAS BEEN UP TO W/C TWICE TODAY. PT COMPLAINING OF RT HIP PAIN, FEELING UNDER LEG AND MUSCLE FELT TIGHT. ICE SEEMED TO HELP. PT NEEDED ASSIST WITH GETTING COMFORTABLE IN BED, PT UNABLE TO TURN SELF, PT DID WEAR ARM BRACE TO RT WRIST TODAY. PT STATED IT WAS DUE TO A BROKE HAND.
[2021-07-18 19:30] VITALS: BP 153/50
--- NOTE | 2021-07-18 23:04 | NUR ---
PT ALERT AND ORIENTED X 1. IMPULSIVE AT TIMES. AMB TO BR WITH WALKER AND ASSIST X 1. INCONT OF URINE AT TIMES. PT TAKES MEDS CRUSHED IN APPLESAUCE WITHOUT DIFFICULTY. PT C/O PAIN IN RIGHT LEG. SCHEDULED TYLENOL AND METHADONE GIVEN ORDERED. RIGHT BUTTOCKS DRESSING C/D/I. BED ALARM ON FOR SAFETY. PT APPEARS TO BE SLEEPING ON HOURLY ROUNDS.
[2021-07-19 07:15] VITALS: BP 129/54
--- NOTE | 2021-07-19 11:50 | NUR ---
PT UP IN CHAIR FOR LUNCH. PT SLEPT IN THIS AM. SON AND DTR IN LAW VISITING. PT WAS SAYING TO HIS FAMILY TO GET HIM OUT OF HERE. PT STATED HIS RT LEG IS FEELING BETTER TODAY. PT TOOK MEDS CRUSHED IN APPLESAUCE. PT WAS NOT WEARING HIS ARM BRACE AT THIS TIME. PT FEEDING SELF WITHOUT ANY ISSUES.
--- NOTE | 2021-07-19 13:30 | NUR ---
ASSISTED PT GETTING HIS SHIRT ON, PT TOLERATED WITH RT ARM, NO COMPLAINTS OF PAIN, PT WANTED DRESSED. PT DID VOID 400ML IN URINAL WITH ASSIST.
--- NOTE | 2021-07-19 14:41 | NUR ---
PT BACK TO BED, CHANGED DRESSING TO RT BUTTOCKS AREA WHILE PT WAS TURNED TO LEFT SIDE. PT STATED TO HURRY DUE TO PAIN TO RT LEG. ADM NORCO 5MG PO FOR PAIN TO RT LEG OF 6 ON 1-10 SCALE.
[2021-07-19 19:34] VITALS: BP 141/57
--- NOTE | 2021-07-20 00:59 | NUR ---
PT ASSESSMENT COMPLETED AND VSS. MEDS GIVEN ORDERED AND WELL TOLERATED. FALL PRECAUTIONS IN PLACE. VOIDING PER URINAL YELLOW URINE. INC AT TIMES. SLEEPING MEDICATION HELPFUL. PAIN MEDICATION WORKING WELL. ASST WITH REPOSITION TO HELP WOUND ON R BUTTOCK HEAL - DRESSING IN PLACE. SLEEPING WELL. WILL CONTINUE TO MONITOR FREQUENTLY.
[2021-07-20 10:35] VITALS: BP 142/52
--- NOTE | 2021-07-20 11:13 | NUR ---
PATIENT CARE ASSUMED AT 0700, PATIENT LAYING IN BED WITH EYES OPENED, PATIENT IS ALERT AND ORIENTED X2, TOOK MEDICATION CRUSHED, ASSESMENT COMPLETED, LUNGS CLEAR, ACTIVE BOWEL SOUND WITH SOFT AND ROUNDED ABDOMEN, VSS, COLOR PINK WITH BRISK CAPILLARY REFILL, PATIENT IS A 1-2 PERSON ASSIST,PATIENT COMPLAINED OF PAIN AND PRN MEDICATION GIVEN, PATIENT AMBULATE ON A WHEEL/CHAIR, USES URINAL, PATIENT IS A HIGH FALL RISK. WILL CONTINUE TO MONITOR PATIENT FOR SAFETY
--- NOTE | 2021-07-20 12:17 | NUR ---
Nutrition followup: pt continues to eat well, 75-100% of meals on mechanically altered chopped, carb controlled diet. 100% supplement/glucerna intake. DJD per MRI, no current plans for kyphoplasty. On B12, folic acid, vitamin D. No weight since 07/10 to evaluate. REC obtain current weight. Otherwise low risk.
--- NOTE | 2021-07-20 16:00 | NUR ---
Cm notified that he is not going to have a kyphoplasty today. remains on acute rehab. Cm visited with son olvin. Checking to see if he goes back to [facility], if he would be able to have 24hr supervision. Can do some extra private duty if needed. He gets 5 checks a day to help with diabetes, eye drops and son visits also. His son has been trying to get him to move to [facility] and he cont. to decline the need to move per son olvin. Passed on to MD that son has some medical questions. Will cont following as needed. BPCI.
[2021-07-20 19:45] VITALS: BP 139/50
--- NOTE | 2021-07-20 22:52 | NUR ---
PT ASSESSMENT COMPLETED AND VSS. MEDS GIVEN ORDERED AND WELL TOLERATED. FALL PRECAUTIONS IN PLACE. VOIDING MODERATE AMOUNT OF YELLOW URINE PER URINAL. ASST WITH REPOSITION FOR COMFORT. PRN SLEEP MEDICATION HELPFUL. DRESSING ON R BUTTOCK DRY AND INTACT. PT DENIES NEEDS. SLEEPING. WILL CONTINUE TO MONITOR FREQUENTLY.
[2021-07-21 08:00] VITALS: BP 144/54
--- NOTE | 2021-07-21 13:07 | NUR ---
Team meeting, he needs queuing for all adl's. moderate assist for lower body assist. 70ft with fww, siting to standing balance very unsteady. Moderate to severe memory and cognition. Meds crushed in apple sauce. Has to have someone assist with dressing. He will need / assist, will need to see if family can get private duty at the [facility] [place] vs moving to memory care unit . Dc 07/24/21
[2021-07-21 19:12] VITALS: BP 148/62
--- NOTE | 2021-07-22 00:08 | NUR ---
PT ALERT AND ORIENTED X 1, CONFUSED AT TIMES. IRRITABLE. UP IN CHAIR IN EVENING. TRANSFERRED TO BED AT HS WITH ASSIST X 1. PT TAKES MEDS CRUSHED IN APPLESAUCE. PT C/O PAIN IN RIGHT LEG. SCHEDULED TYLENOL AND METHADONE GIVEN. MELATONIN GIVEN AT HS FOR SLEEP. BED ALARM ON FOR SAFETY. PT AWAKE MUCH OF NIGHT.
[2021-07-22 07:15] VITALS: BP 176/78
--- NOTE | 2021-07-22 10:00 | NUR ---
Spoke with both Arnol (son) and Margaux at [facility]. They will work on private duty needs and arrangements with anticipated dc back to [facility] on Tuesday 07/24. [facility] called requesting an updated as they will be provide HH services and will need orders faxed at hi. Clinical update being faxed to both [facility] and [facility] today.
--- NOTE | 2021-07-22 11:28 | NUR ---
ASSUMED CARE AT 0700. PATIENT IS CONFUSED, ALERT AND ORIENTED X1 TO SELF. PATIENT EDEN'S, NATIONAL SALES MANAGER ARE EQUAL. EDEN'S, LUNGS ARE CLEAR AND DEMINISHED. ABD IS SOFT WITH BSXR4. PATIENT IS INCONTINENT OF URINE. RIGHT BUTTOCK WOUND DRESSING CHANGED ACCORDING TO PROTOCOL. FALL AND SAFETY PROTOCOL IN PLACE. DENIES PAIN. CONTINUES TO PROGRESS SLOWLY TOWARDS D/C GOALS. WILL CONTINUE TO MONITER.
[2021-07-22 13:43] VITALS: BP 176/78
[2021-07-22 19:24] VITALS: BP 146/58
--- NOTE | 2021-07-23 04:46 | NUR ---
07-22-21 CARE TRANSFERRED 1899. LATER PT AAOX1, VSS, RR EVEN AND NONLABORED ON RA. PT LUNG CLEAR, DIMISHED AT BASES, HT RR, ABD SOFT AND ACTIVE. PT PRESENTS PLEASANTLY CONFUSED, BUT COOPERATIVE AND CALM DURING NURSING ASSESSMENT. DURING MEDICATION ADMIN PT HAD NO DIFFICULTIES TAKING MEDICATION WHOLE IN APPLESAUCE. PT HAD MULTI ASSIST WITH URINAL, YELLOW, CLEAR.
[2021-07-23 05:36] LABS: ABSOLUTE NEUTROPHILS 4.3 thou/uL (1.4-8.2); BASOPHILS 0.6 % (0.0-2.0); EOSINOPHILS 5.6 % (0.0-3.0); HEMATOCRIT 35.8 % (42.0-52.0); HEMOGLOBIN 11.6 gm/dL (14.0-18.0); LYMPHOCYTES 25.3 % (24.0-44.0); MCH 29.1 pg (26.0-34.0); MCHC 32.5 g/dL (28.0-37.0); MCV 89.6 fL (80.0-100.0); MONOCYTES 8.4 % (1.0-8.0); PLATELET COUNT 438 thou/uL (150-400); POLYS 60.1 % (36.0-66.0); RBC 3.99 mil/uL (4.50-6.00); RDW 15.7 % (10.5-14.5); WBC 7.2 thou/uL (4.0-11.0)
[2021-07-23 06:27] LABS: CALCIUM 9.1 mg/dL (8.5-10.1); MAGNESIUM 2.3 mg/dL (1.8-2.4); POTASSIUM 4.1 mmol/L (3.5-5.1)
[2021-07-23 08:00] VITALS: BP 134/89
[2021-07-23] MEDS ORDERED: NOVOLOG100 UNIT/M SUBQ (10:23)
[2021-07-23] MEDS ORDERED: SSD CREAM 1% 5050 GM TOP (10:23)
[2021-07-23] MEDS ORDERED: MELATONIN5 M1 PO (10:23)
[2021-07-23] MEDS ORDERED: TYLENOL EXTRA500 MG PO (10:23)
[2021-07-23] MEDS ORDERED: VITAMIN B-12500 MCG PO (10:23)
--- NOTE | 2021-07-23 16:14 | NUR ---
PT ALERT AND ORIENTED X2 WITH FORGETFULNESS. VSS. PRN PAIN MED GIVEN FOR RIGHT HIP PAIN WITH PARTIAL RELIEF. UP IN THE CHAIR FOR LUNCH. FAMILY AT THE BED. UPDATED ON PT'S PROGRESS AND PLAN OF CARE. NO CONCERNS AT THIS TIME.
[2021-07-23 19:44] VITALS: BP 152/62
--- NOTE | 2021-07-24 02:25 | NUR ---
07-23-21 CARE TRANSFERRED 1899. PT PRESENTS PLESANTLY CONFUSED AAOX1, VSS, RR EVEN AND NONLABORED ON RA. PT LUNGS CLEAR DIMINISHED, HT RR, ABD SOFT AND ACTIVE. PT REPORTS R. HIP PAIN AND STATES "IT'S NOT TOO BAD" PT REFUSES PRN MEDICATION. PT HAD NO DIFFICULTY TAKING MEDICATION WHOLE IN APPLESAUCE. PT CONSUMED 480ML OF WATER. PT REPOSITION FOR COMFORT WITH BED ADJUSTMENT; BED LOCKED, ALARM PLACED AND CALL LIGHT WITHIN REACH.
--- NOTE | 2021-07-24 11:43 | NUR ---
PT DISCHARGGING TODAY TO HOME WITH [facility] FAXED DC ORDERS/SUMMRY SPOKE WITH MILAGROS IN INTAKE SHE RECEIVED ORDERS AND WILL ARRANGE VISIT WITH PT.
--- NOTE | 2021-07-24 13:35 | NUR ---
ASSESSMENT CHARTED. PT ALERT AND ORIENTED. VSS. SCHEDULED PAIN MED GIVEN WITH PARTIAL RELIEF. ORDERS GIVEN TO DISCHARGE PT TO [facility] WITH . FAMILY AWARE. DISCHARGE INSTRUCTIONS GIVEN TO PT AND THE SONS. THEY BOTH VERBERLISED UNDERSTANDING.
== END 2021-07-24 13:41 | disposition home health service (06) | DRG 947 ==
PROVIDERS: Nurse Practitioner; Nurse Practitioner Family; ADMIT Physical Medicine & Rehabilitation; ATTEND Physical Medicine & Rehabilitation
DX: R53.81 Other malaise (principal); L89.313 Pressure ulcer of right buttock, stage 3; M48.56XA Collapsed vertebra, not elsewhere classified, lumbar region, initial encounter for fracture; N39.0 Urinary tract infection, site not specified; N17.9 Acute kidney failure, unspecified; F11.20 Opioid dependence, uncomplicated; E44.1 Mild protein-calorie malnutrition; Z68.45 Body mass index [BMI] 70 or greater, adult; R26.89 Other abnormalities of gait and mobility; G56.31 Lesion of radial nerve, right upper limb; E11.9 Type 2 diabetes mellitus without complications; G30.9 Alzheimer's disease, unspecified; F02.80 Dementia in other diseases classified elsewhere, unspecified severity, without behavioral disturbance, psychotic disturbance, mood disturbance, and anxiety; Z20.822 Contact with and (suspected) exposure to COVID-19; Z96.641 Presence of right artificial hip joint; M48.061 Spinal stenosis, lumbar region without neurogenic claudication; M19.90 Unspecified osteoarthritis, unspecified site; G20 Parkinson's disease; R13.10 Dysphagia, unspecified; G89.29 Other chronic pain; E55.9 Vitamin D deficiency, unspecified; I95.1 Orthostatic hypotension; L40.50 Arthropathic psoriasis, unspecified; D64.9 Anemia, unspecified; Z98.49 Cataract extraction status, unspecified eye; Z86.73 Personal history of transient ischemic attack (TIA), and cerebral infarction without residual deficits; Z90.49 Acquired absence of other specified parts of digestive tract; Z87.11 Personal history of peptic ulcer disease
CPT/HCPCS: 10112

== ENCOUNTER 2021-10-10 16:07 | Inpatient (IN) | payer OTHER ==
[~2021-10-10] VITALS: Ht 182.9 cm; Wt 60.4 kg
[~2021-10-10 16:07] MED LIST changes: +MELATONIN5 M1 PO; +SSD CREAM 1% 5050 GM TOP; +TYLENOL EXTRA500 MG PO
[2021-10-10 16:41] VITALS: BP 109/57
[2021-10-10 17:14] LABS: HEMATOCRIT 35.9 % (42.0-52.0); HEMOGLOBIN 11.4 gm/dL (14.0-18.0); MCHC 31.7 g/dL (28.0-37.0); MCV 85.2 fL (80.0-100.0); PLATELET COUNT 491 thou/uL (150-400); RBC 4.21 mil/uL (4.50-6.00); RDW 18.5 % (10.5-14.5); WBC 16.8 thou/uL (4.0-11.0)
[2021-10-10 17:31] LABS: APTT 25.1 Seconds (24.5-32.8); INR 1.05; PROTIME 11.4 Seconds (10.5-12.1)
[2021-10-10 17:55] LABS: ABSOLUTE NEUTROPHILS 13.3 thou/uL (1.4-8.2); ANISOCYTOSIS 2+
[2021-10-10 18:15] LABS: CALCIUM 9.3 mg/dL (8.5-10.1); CREATININE 3.9 mg/dL (0.7-1.3); POTASSIUM 5.3 mmol/L (3.5-5.1)
[2021-10-10 18:26] LABS: ALBUMIN 2.3 g/dL (3.4-5.0); MAGNESIUM 2.9 mg/dL (1.8-2.4); TOTAL BILIRUBIN 0.4 mg/dL (0.2-1.0); TOTAL PROTEIN 7.7 g/dL (6.4-8.2)
[2021-10-10 18:50] LABS: URINE BILIRUBIN NEGATIVE (Negative); URINE BLOOD 2+ (Negative); URINE CLARITY CLEAR; URINE COLOR YELLOW; URINE GLUCOSE-RANDOM* TRACE (Negative); URINE KETONES NEGATIVE (Negative); URINE NITRITE-REFLEX NEGATIVE (Negative); URINE PROTEIN (DIPSTICK) NEGATIVE (Negative); URINE SPECIFIC GRAVITY 1.025 (1.005-1.035); URINE UROBILINOGEN 0.2 E.U./dl (0.2-1.0)
[2021-10-10 18:53] LABS: URINE LEUKOCYTES-REFLEX 1+ (Negative)
[2021-10-10 19:00] LABS: SQUAMOUS 0-3 Few /LPF (0-3); URINE WBC-REFLEX 6-15 Few /HPF (0-5)
[2021-10-10 19:01] LABS: CASTS None Seen /LPF (None Seen); URINE RBC 3-10 Few /HPF (NONE SEEN)
[2021-10-10 19:02] LABS: BACTERIA-REFLEX 1-9 Few /HPF (None Seen); CRYSTALS None Seen /LPF (None Seen)
[2021-10-10 19:37] VITALS: BP 104/41
[2021-10-11 06:29] LABS: MCH 26.9 pg (26.0-34.0); MCV 89.8 fL (80.0-100.0); RBC 3.34 mil/uL (4.50-6.00); WBC 13.5 thou/uL (4.0-11.0)
[2021-10-11 06:46] LABS: CALCIUM 8.4 mg/dL (8.5-10.1); POTASSIUM 4.7 mmol/L (3.5-5.1)
[2021-10-11 06:48] LABS: CREATININE 2.9 mg/dL (0.7-1.3)
[2021-10-11 08:00] VITALS: BP 111/65
[2021-10-11 08:17] VITALS: BP 112/56
--- NOTE | 2021-10-11 11:07 | EKG ---
[place] [address] [facility] [place] [address] ELECTROCARDIOGRAM REPORT Name: KAYE RAGSDALE Room #: 170-4 ADM IN M.R.#: [id number] Admission: 10/10/21 Attend Phys: Kevin Schreiber MD Discharge: Date of : 33 Report #: [id number] [facility] ED Test Date: 2021-10-10 Test Time: 17:35:18 Pat Name: KAYE RAGSDALE Department: Room: 170 Gender: M Tractor Operator Battery: LAURA : 1935 Requested By: John Givens Order Number: [id number] MD: Farhad Pena Measurements Intervals Gove Rate: 114 P: NC: QRS: 72 QRSD: 85 T: 82 QT: 333 QTc: 459 Interpretive Statements Sinus tachycardia Artifact in lead(s) I,III,aVR,aVL,V1,V2 Compared to ECG 07/07/2021 16:05:19 Heart rate has increased 0 Electronically Signed On 10-11-2021 11:07:20 SOIL SCIENTIST by Farhad Pena [email or web address] <ELECTRONICALLY SIGNED> By: Farhad Pena MD, [facility] 10/11/21 1107 [id number] [id number] Farhad Pena MD, [facility] /EPI
[2021-10-11 12:00] VITALS: BP 91/58
[2021-10-11 13:08] VITALS: BP 93/49
[2021-10-11] MEDS ORDERED: LIPITOR 10 MG10 M1 PO (14:31)
[2021-10-11] MEDS ORDERED: METFORMIN HCL500 M3 PO (14:32)
[2021-10-11] MEDS ORDERED: TREXALL15 MG PO (14:32)
[2021-10-11] MEDS ORDERED: MUCINEX600 MG PO (14:33)
[2021-10-11] MEDS ORDERED: NORCO5 PO (14:34)
[2021-10-11] MEDS ORDERED: LANTUSSOLASTAR SUBQ (14:35)
[2021-10-11] MEDS ORDERED: NEURONTIN 400400 M1 PO (14:36)
[2021-10-11] MEDS ORDERED: XALATAN2.5 ML OPHTHALMIC (14:36)
[2021-10-11] MEDS ORDERED: DORZOLAMIDE 2%10 ML OPHTHALMIC (14:36)
[2021-10-11 15:12] VITALS: BP 128/68
--- NOTE | 2021-10-11 16:23 | NUR ---
Received pt to room 349 from ER approx. 1430. Pt oriented to self only, soft spoken, answers yes/no questions w/ head shake. Pt on 3L NC, sating adequately. SR on the monitor. Pt denies any pain. Pt w/ dementia & unable to answer most admit questions, pt son (NATALIE), Arnol, called for information & given update that pt is on floor. Pt armbands applied. High fall precautions in place. Pt w/ multiple wounds which were photographed & documented. Wound care nurse consulted. Pt on bedrest, PT/OT consulted. Pt w/ flavio which is patent & draining appropriately. Pt NPO until ev. Pt from [facility].
[2021-10-12 02:30] VITALS: BP 112/40
[2021-10-12 07:26] VITALS: BP 115/67
--- NOTE | 2021-10-12 08:31 | NUR ---
progress pt alert to self denies pain, has a productive congested cough unable to move secretions d/t thick beige/yellowish pt tongue bleeding dark area noted on tip looks like he may have bit his tongue. oral care provided and suctioned out a large amount of thick sputum. muniz intact, pt to remain npo until speech eval. pt thin and emaciated vital sign stable. tele intact reading afib with rates in the 90's. repositioned as need continue poc.
--- NOTE | 2021-10-12 10:58 | NUR ---
PLEASE SEE OT VARIANCE. OT NOT APPROPRIATE
[2021-10-12 11:10] VITALS: BP 125/65
[2021-10-12 15:08] VITALS: BP 132/63
--- NOTE | 2021-10-12 16:07 | NUR ---
INITIAL ASSESSMENT: Received consult. CHANDRIKA reviewed chart and spoke with nursing and attending physician. Pt was admitted from [facility] due to pneumonia/hypoxia. Pt placed in Enhanced Isolation due to having positive COVID test in the ER. Pt is afebrile and on 4L of O2. Pt is on IV abx. judithshilpa completed today. Pt to be NPO. Pt with hx Parkinson's, Dementia, DM, CVA. CHANDRIKA spoke with Pita at [facility]. Provided update. Pt has been fully vaccinated and received the booster for COVID. Pt had first positive COVID test at the facility on August 29, 2021. CHANDRIKA faxed clinical info to the facility for review. CHANDRIKA spoke with pt's son, Santiago, via phone. Introduced role of CHANDRIKA. Pt has lived at [facility] for abou 4-6 weeks. Pt was at [facility] prior to going to [facility]. Pt did live in the DC apts at [facility] until the end of 2020. Pt's PCP is Dr. Rodríguez. Lengthy discussion with pt's son regarding goals of care. Pt's son states that he does not think family would agree with peg tube placement. They would consider hospice care. SW explained hospice care in the nursing facility v. hospice house. Pt's son states they would most likely prefer a hospice house. SW explained the referral and evaluation process. Pt's son verbalized understanding. Attending physician to discuss plan of care with pt's family. SW is following to assist as needed with discharge planning.
--- NOTE | 2021-10-12 19:26 | NUR ---
RN ASSUMED PT'S CARE AT 0700-1900PM, PT IS A&OX1 ( PERSON ), PT CANNOT FOLLOW COMMANDS AT MOST OF TIME, PT IS ON O2 4L/MIN/NC, PT NEEDS SUCTION FROM HIS MOUTH , PT'S VS ARE STABLE AT DAY SHIFT, PT IS NPO, PT IS CONTINUING IV FLUID , RN HAS REPORTED DR ABOUT PT'S LLE EDEMA , NEW ORDER US LLE TO R/O DVT, RN HAS REPORTED TO NEXT SHIFT .
[2021-10-12 19:38] VITALS: BP 144/65
[2021-10-12 23:24] LABS: APTT 32.9 Seconds (24.5-32.8); INR 1.04; PROTIME 11.3 Seconds (10.5-12.1)
[2021-10-12 23:49] VITALS: BP 139/66
[2021-10-13 03:17] VITALS: BP 148/93
[2021-10-13 03:53] VITALS: BP 138/54
[2021-10-13 07:25] VITALS: BP 118/65
--- NOTE | 2021-10-13 07:42 | NUR ---
LLE DOPPLER + FOR OCCLUSION +DVT. MACHINE TOOL BUILDER NOTIFIED. HEPARIN GTT STARTED . NO INITIAL BOLUS. PTT ORDERED FOR AM STILL NOT DRAW. AM NURSE AWARE AND WILL F/U TO TITRATE GTT. PT IS RESTING WITHOUT C/O PRESENTLY. SUCTIONING PT PRN. PT ON 4-5 LNC. SKIN CARE DONE ORAL CARE DONE FREQUENTLY DUE TO DRY MOUTH. DRIED BLOOD NOTED IN MOUTH IN SMALL AMOUNTS. FOAM DRESSINGS INTACT TO SACRAL AND THORACIC SPINE. MOISTURE BARRIER APPLIED TO ALEX AREA AND BUTTOCKS. NO S/S BLEEDING NOED.
[2021-10-13 11:09] VITALS: BP 129/62
--- NOTE | 2021-10-13 14:15 | NUR ---
SW reviewed chart and spoke with nursing and attending physician. Enhanced Isolation discontinued yesterday. Pt with LLE DVT. Pt is on IV abx and heparin. Pt is on 5L of O2. Consult placed for palliative care VENEER SORTER to discuss goals of care with pt's family. Pt is a DNR and currently NPO. SW is following to assist as needed with discharge planning.
[2021-10-13 15:39] VITALS: BP 141/67
--- NOTE | 2021-10-13 17:35 | NUR ---
CARE ASSUMED THIS AM, PT IS ALERT TO SELF. CONDFUSED AND RESTLESS AT TIMES. EPISODES OF HALLUCINATION AT TIMES. CNTINUE TO BE NPO DUE TO FAILED ST EVEALUATION. MISTY CARE DONE EVERY 2 HOURS. HEPARIN DRIP RUNNING PER PROTOCOL. TORRES CATHETER IN PLACE, PATENT AND SECURED. FALL PRECAUTIONS IN PLACE.
[2021-10-13 19:38] VITALS: BP 152/83
--- NOTE | 2021-10-14 04:01 | NUR ---
CONTINUES ON 3 LITERS, KEEPING HIS O2 SATS MID 90'S. HE HAS A PRDUCTIVE COUGH. ASSISTED WITH ORAL CARE. URINE CLEARING UP, LESS PINK. APTT ELEVATED TONIGHT. RATE ADJUSTED ON HIS HEPARIN.
[2021-10-14 04:25] VITALS: BP 123/66
[2021-10-14 07:00] VITALS: BP 112/47
[2021-10-14 07:16] LABS: HEMATOCRIT 34.1 % (42.0-52.0); HEMOGLOBIN 10.5 gm/dL (14.0-18.0); MCH 26.4 pg (26.0-34.0); MCHC 30.9 g/dL (28.0-37.0); MCV 85.4 fL (80.0-100.0); RBC 3.99 mil/uL (4.50-6.00); RDW 18.2 % (10.5-14.5); WBC 22.9 thou/uL (4.0-11.0)
[2021-10-14 07:23] LABS: CALCIUM 8.6 mg/dL (8.5-10.1); CREATININE 1.2 mg/dL (0.7-1.3); POTASSIUM 4.1 mmol/L (3.5-5.1)
--- NOTE | 2021-10-14 11:32 | NUR ---
CHANDRIKA reviewed chart and spoke with nursing and attending physician. Palliative Care WIRELESS RETAIL MANAGER visited with pt's family last evening regarding plan of care. Pt's family are agreeable with pt returning to [facility] with hospice. Pt is currently on 3L of O2. Outside the Hospital DNR form signed by physician and placed on chart. CHANDRIKA spoke with Wil in admissions at [facility], who states they are able to accept pt back today with hospice. The facility has hospice contracts with [facility] and [facility]. CHANDRIKA left voice message for pt's son, Santiago. CHANDRIKA spoke with pt's son, Arnol, to provide update and discuss discharge plan. Arnol states that family is all agreeable with plan for pt to return to the facility with hospice. Hospice providers discussed. Pt's son requests referral to be sent to [facility]. CHANDRIKA explained hospice referral and admission process. Pt's son verbalized understanding. CHANDRIKA faxed hospice referral to [facility]. Spoke with intake. Awaiting call back at this time. CHANDRIKA to arrange ambulance transportation when pt is ready for discharge. Anticipate pt will discharge today. Chart copy ordered. CHANDRIKA is following to assist as needed with discharge planning.
--- NOTE | 2021-10-14 15:21 | HC ---
[facility] [place] [address] CONSULTATION Name: KAYE RAGSDALE Room #: 349-I ADM IN MRomero.#: [id number] Admission: 10/10/21 Attend Phys: Kevin Schreiber MD Discharge: Date of : 34 Report #: [id number] THIS REPORT FOR: cc: Farhad Rodríguez MD, Neal A. MD Althoff,Sarthak Richard MD ~ DATE OF SERVICE: 10/12/2021 CHIEF COMPLAINT: Multiple ulcerations. HISTORY OF PRESENT ILLNESS: This is an 86-year-old male patient who I am asked to see with regard to wound care. The patient can provide very little information about himself. He comes from a retirement with a history of diabetes and dementia. He has had increasing shortness of breath and cough. He is COVID positive, although it is felt that he is likely suffering from aspiration pneumonia at this time. The patient can provide very little information about himself. MEDICATIONS: Includes methadone, Tylenol, Humalog, Silvadene, cyanocobalamin, melatonin, atorvastatin, Neurontin, Plavix, folic acid, tamsulosin, Trusopt eyedrops, methotrexate. PAST MEDICAL HISTORY: Positive for Alzheimer's dementia, psoriatic arthritis, left carotid artery occlusion, chronic back pain, glaucoma. SOCIAL HISTORY: The patient lives in nursing care facility. No history of alcohol or tobacco use. FAMILY HISTORY: Unknown. REVIEW OF SYSTEMS: Not obtainable due to the patient's condition. ALLERGIES: No known drug allergies. PHYSICAL EXAMINATION: VITAL SIGNS: The patient's vital signs at this time include temperature 36.7, pulse 111, respirations of 16, blood pressure 132/63. GENERAL: This is a chronically ill-appearing male patient who appears to be in minimal distress. HEENT: Head normocephalic. NECK: Supple. LUNGS: Diminished. HEART: Irregular. ABDOMEN: Soft. BACK: Gluteal sacral region demonstrates what appeared to be stage 3 pressure ulcerations to the buttocks bilaterally. He has a small area of deep tissue [address] [address] CONSULTATION Name: KAYE RAGSDALE Room #: 349-I [facility] IN ..#: [id number] Admission: 10/10/21 Attend Phys: Kevin Schreiber MD Discharge: Date of : 34 Report #: [id number] injury to the T-spine region. He has a traumatic injury to his left rodriguez with some dry crust in place. EXTREMITIES: He has cellulitis to his left great toe with some oozing and paronychial inflammation. NEUROLOGIC: The patient appears to move symmetrically, is not oriented. LABORATORY STUDIES: Include sodium 148, potassium 4.7, chloride 117, CO2 of 19, BUN 109, creatinine 2.9, glucose 266. Albumin is 2.3. White blood cell count 13.5 with a hemoglobin of 9.0. CLINICAL IMPRESSION: 1. Stage 3 pressure ulcerations to the buttocks bilaterally. 2. Ulceration, left great toe with surrounding wound infection/cellulitis. 3. Traumatic wound to the left pretibial region. 4. Deep tissue injury to the thoracic and lumbar spine region. 5. Pneumonia with suspected aspiration as the etiology. 6. History of COVID-19 positivity. 7. Advanced dementia. 8. Type 2 diabetes mellitus. 9. Hypertension. 10. Moderate to severe protein-calorie malnutrition. RECOMMENDATIONS: At this point in time, the patient will be placed in a low air loss surface. He will need q. 2 hour turning and positioning. Recommend Prevalon boots for both lower extremities. Recommend barrier cream b.i.d. to the sacral-gluteal region. Gentamicin, Xeroform, Kerlix to the left great toe. Gentamicin ointment, Xeroform bordered foam daily to the pretibial region. A border foam daily to the thoracic, lumbar spine pressure area. He will need ongoing nutritional support, continue medical management. I appreciate being asked to see him in consultation. <ELECTRONICALLY SIGNED> By: Sarthak Marin MD 10/14/21 1521 1443 38 Sarthak Marin MD /nt
--- NOTE | 2021-10-14 16:31 | NUR ---
DISCHARGE NOTE: PT IS GETTING DISCHARGE BACK TO [facility] WITH PALLIATIVE CARE. GAVE PT A BATH, WOUND CARE COMPLETED AND PICTURES TAKEN. IV AND TELE D/C. TORRES IN PLACE DUE TO REQUEST FROM DR. LANG TO KEEP IN FOR PT FACILITY. HEPARIN DRIP D/C PER DR. LANG ORDERS WELL. IV'S DISCONTINUED. PT HAD A WATCH ON UPON ADMISSION, STILL HAVE HIS WATCH ON NO OTHER BELONGINGS. REPORT GIVEN TO SHEREEN JARAMILLO AT [facility]. WAITING FOR AMBULANCE TO COME PICK PT UP.
== END 2021-10-14 20:00 | DRG 871 ==
LOC: ER 16:07 → 3W 17:58 → EROBS 17:58 → 3W 10-11 13:11
PROVIDERS: Emergency Medicine; Nurse Practitioner Family; ADMIT Hospitalist; ATTEND Hospitalist
DX: A41.9 Sepsis, unspecified organism (principal); L89.323 Pressure ulcer of left buttock, stage 3; U07.1 COVID-19; E43 Unspecified severe protein-calorie malnutrition; J69.0 Pneumonitis due to inhalation of food and vomit; L89.313 Pressure ulcer of right buttock, stage 3; E87.0 Hyperosmolality and hypernatremia; Z68.1 Body mass index [BMI] 19.9 or less, adult; L03.031 Cellulitis of right toe; L98.491 Non-pressure chronic ulcer of skin of other sites limited to breakdown of skin; I10 Essential (primary) hypertension; E11.9 Type 2 diabetes mellitus without complications; Z66 Do not resuscitate; M48.00 Spinal stenosis, site unspecified; Z90.49 Acquired absence of other specified parts of digestive tract; G30.9 Alzheimer's disease, unspecified; F02.80 Dementia in other diseases classified elsewhere, unspecified severity, without behavioral disturbance, psychotic disturbance, mood disturbance, and anxiety
CPT/HCPCS: 10879